=== PATIENT | male | born 1955 | race African-American/Black ===

== ENCOUNTER 2018-06-15 17:28 | Inpatient (IN) | payer BC, MEDICAID ==
--- OUTSIDE RECORDS SUMMARY | 2018-06-15 17:30 | XMS REPORT | Clinical Summary ---
:1955 Author Organization [facility] Address [address] [place] [address] Care Team Providers Name Role Phone Sharpan Primary Care Provider Unavailable Allergies No Known Allergies Medications Medication Sig Dispensed Refills Start Date End Date Status insulin aspart Inject 0 Active (NOVOLOG) 100 subcutaneously 3 unit/mL InPn (three) times daily with meals. insulin detemir Inject 0 Active (LEVEMIR) 100 subcutaneously unit/mL injection nightly. atorvastatin Take 20 mg by mouth 0 Active (LIPITOR) 20 MG daily. tablet aspirin 325 MG Take 1 tablet (325 30 tablet 0 10/23/2014 Active tablet mg total) by mouth daily. hydrALAZINE Take 50 mg by mouth 0 Active (APRESOLINE) 50 MG 2 (two) times daily. tabletIndications: hypertension esomeprazole Take 40 mg by mouth 0 Active (NEXIUM) 40 MG daily. capsule losartan (COZAAR) Take 1 tablet (50 mg 30 tablet 1 05/28/2017 Active 50 MG tablet total) by mouth daily. carvedilol (COREG) Take 1 tablet (25 mg 60 tablet 1 05/28/2017 25 MG tablet total) by mouth 2 8 (two) times daily. furosemide (LASIX) Take 3 tablets (60 180 tablet 1 05/28/2017 20 MG tablet mg total) by mouth 2 8 (two) times daily. Active Problems Problem Noted Date SOB (shortness of breath) 05/21/2017 CAD (coronary artery disease) 10/23/2014 Social History Tobacco Use Types Packs/Day Years Used Date Never Smoker Alcohol Use Drinks/Week oz/Week Comments No Sex Assigned at Date Recorded Not on file Job Start Date Occupation Industry Not on file Not on file Not on file Travel History Travel Start Travel End No recent travel history available. Last Filed Vital Signs Not on file Plan of Treatment Not on file Results Not on fileafter 06/14/2017 Insurance Payer Benefit Plan / Subscriber ID Type Phone Address Group MEDICAID - MEDICAID STOREY xxxxxxxxx Medicaid MEDICAID [place] NONCONTRACTED Non-Contracted CARE BLUE BCBS ADV HMO xxxxxxxxxxxx [phone] [address] CROSS/BLUE EXCHANGE [address] [facility] [id number] Advance Directives For more information, please contact:[address] [phone] Code Status Date Activated Date Inactivated Comments Full Code 05/21/2017 12:54 PM 05/28/2017 9:34 PM This code status was determined by: Patient Full Code 10/23/2014 12:12 PM 10/23/2014 7:58 PM This code status was determined by: Patient
--- OUTSIDE RECORDS SUMMARY | 2018-06-15 17:32 | XMS REPORT ---
:1955 Author Organization [facility] Address [facility] [address] [place] [address] Care Team Providers Name Role Phone UNKNOWN, REFFERING Primary Care Provider Unavailable JULIO CÉSAR LATHAM Unavailable Unavailable SUSIE RODRIGUEZ M.D. Unavailable Unavailable Problems This patient has no known problems. Allergies, Adverse Reactions, Alerts This patient has no known allergies or adverse reactions. Medications This patient has no known medications. Results Test Description Test Time Test Comments Text Results Atomic Results Result Comments POCT-GLUCOSE METER 2017-05-28 16:22:00 Test Item Value Reference Range Comments POC-GLUCOSE METER (BEAKER) (test 164 mg/dL 70-110 TESTED AT [address] vrbw=2512) [facility] [address] POCT-GLUCOSE [id number] 12:55:00 Test Item Value Reference Range Comments POC-GLUCOSE METER (BEAKER) 158 mg/dL 70-110 TESTED AT [address] (test gdlo=3173) [place] [id number] POCT-GLUCOSE [id number] 07:13:00 Test Item Value Reference Range Comments POC-GLUCOSE METER (BEAKER) 115 mg/dL 70-110 TESTED AT [address] (test ukmv=9519) [facility] [address] CALCIUM, [id number] 06:56:00 Test Item Value Reference Range Comments CALCIUM IONIZED (BEAKER) (test ljjj=677) 1.10 mmol/L 1.12-1.27 PH, BLOOD (BEAKER) (test dfpb=2460) 7.33 [id number] 06:37:00 Test Item Value Reference Range Comments PHOSPHORUS (BEAKER) (test rxpy=696) 2.9 mg/dL 2.3-4.7 [id number] 06:37:00 Test Item Value Reference Range Comments MAGNESIUM (BEAKER) (test bzht=292) 2.0 mg/dL 1.6-2.6 BASIC METABOLIC [id number] 06:37:00 Test Item Value Reference Range Comments SODIUM (BEAKER) (test 139 meq/L 136-145 ffsg=336) POTASSIUM (BEAKER) (test 3.7 meq/L 3.5-5.1 hwmi=210) CHLORIDE (BEAKER) (test 105 meq/L 98-107 ewbg=591) CO2 (BEAKER) (test 26 meq/L 22-29 zczg=174) BLOOD UREA NITROGEN 42 mg/dL 7-21 (BEAKER) (test thrl=832) CREATININE (BEAKER) (test 2.38 mg/dL 0.57-1.25 becx=187) GLUCOSE RANDOM (BEAKER) 112 mg/dL 70-105 (test rqso=231) CALCIUM (BEAKER) (test 8.1 mg/dL 8.4-10.2 rscr=234) EGFR (BEAKER) (test 34 mL/min/1.73 sq m ESTIMATED GFR IS NOT qrjw=7845) ACCURATE CREATININE CLEARANCE IN PREDICTING GLOMERULAR FILTRATION RATE. ESTIMATED GFR IS NOT APPLICABLE FOR DIALYSIS PATIENTS. BLOOD GAS, [id number] 06:09:00 Test Item Value Reference Range Comments PH VENOUS (BEAKER) (test tkys=186) 7.36 7.32-7.42 PCO2 VENOUS (BEAKER) (test nxxz=242) 52 mmHg 41-51 PO2 VENOUS (BEAKER) (test bqan=031) 161 mmHg 25-40 O2 SATURATION VENOUS (BEAKER) (test upki=186) 99.0 % 40.0-70.0 HCO3 VENOUS (BEAKER) (test iqdp=092) 29 mmol/L 21-29 BASE EXCESS VENOUS (BEAKER) (test inxi=202) 2.4 mmol/L -2.0-3.0 PATIENT TEMPERATURE (BEAKER) (test rcef=1198) 37.0 C CBC W/PLT COUNT & AUTO [id number] 05:51:00 Test Item Value Reference Range Comments WHITE BLOOD CELL COUNT (BEAKER) (test bhti=890) 7.0 K/ L 3.5-10.5 RED BLOOD CELL COUNT (BEAKER) (test xoup=901) 4.33 M/ L 4.63-6.08 HEMOGLOBIN (BEAKER) (test whdy=485) 12.5 GM/DL 13.7-17.5 HEMATOCRIT (BEAKER) (test zlko=352) 40.5 % 40.1-51.0 MEAN CORPUSCULAR VOLUME (BEAKER) (test smsa=185) 93.5 fL 79.0-92.2 MEAN CORPUSCULAR HEMOGLOBIN (BEAKER) (test 28.9 pg 25.7-32.2 oxhs=702) MEAN CORPUSCULAR HEMOGLOBIN CONC (BEAKER) (test 30.9 GM/DL 32.3-36.5 zsea=317) RED CELL DISTRIBUTION WIDTH (BEAKER) (test 12.4 % 11.6-14.4 esap=746) PLATELET COUNT (BEAKER) (test zvva=997) 202 K/CU MM 150-450 MEAN PLATELET VOLUME (BEAKER) (test wwen=255) 11.6 fL 9.4-12.4 NUCLEATED RED BLOOD CELLS (BEAKER) (test 0 /100 WBC 0-0 ersi=091) NEUTROPHILS RELATIVE PERCENT (BEAKER) (test 55 % gjvz=173) LYMPHOCYTES RELATIVE PERCENT (BEAKER) (test 35 % ookj=217) MONOCYTES RELATIVE PERCENT (BEAKER) (test 6 % gzqa=951) EOSINOPHILS RELATIVE PERCENT (BEAKER) (test 2 % xpoj=982) BASOPHILS RELATIVE PERCENT (BEAKER) (test 1 % dujg=151) NEUTROPHILS ABSOLUTE COUNT (BEAKER) (test 3.90 K/ L 1.78-5.38 adcn=146) LYMPHOCYTES ABSOLUTE COUNT (BEAKER) (test 2.47 K/ L 1.32-3.57 qzap=070) MONOCYTES ABSOLUTE COUNT (BEAKER) (test 0.44 K/ L 0.30-0.82 elfv=294) EOSINOPHILS ABSOLUTE COUNT (BEAKER) (test 0.16 K/ L 0.04-0.54 gvkl=701) BASOPHILS ABSOLUTE COUNT (BEAKER) (test 0.06 K/ L 0.01-0.08 hrvg=481) IMMATURE GRANULOCYTES-RELATIVE PERCENT (BEAKER) 0 % 0-1 (test essi=9710) POCT-GLUCOSE [id number] 20:52:00 Test Item Value Reference Range Comments POC-GLUCOSE METER (BEAKER) 184 mg/dL 70-110 TESTED AT [address] (test hzlf=7549) [facility] [address] POCT-GLUCOSE [id number] 17:12:00 Test Item Value Reference Range Comments POC-GLUCOSE METER (BEAKER) 143 mg/dL 70-110 TESTED AT [address] (test rwqu=7120) [facility] [address] POCT-GLUCOSE [id number] 11:42:00 Test Item Value Reference Range Comments POC-GLUCOSE METER (BEAKER) 210 mg/dL 70-110 TESTED AT [address] (test pmwu=5231) [facility] [address] POCT-GLUCOSE [id number] 08:02:00 Test Item Value Reference Range Comments POC-GLUCOSE METER (BEAKER) 135 mg/dL 70-110 TESTED AT [address] (test nwrk=0423) [facility] [address] BASIC METABOLIC [id number] 07:16:00 Test Item Value Reference Range Comments SODIUM (BEAKER) (test 138 meq/L 136-145 xlls=110) POTASSIUM (BEAKER) (test 4.0 meq/L 3.5-5.1 alip=300) CHLORIDE (BEAKER) (test 105 meq/L 98-107 gpac=518) CO2 (BEAKER) (test 26 meq/L 22-29 dlio=526) BLOOD UREA NITROGEN 39 mg/dL 7-21 (BEAKER) (test mnvf=204) CREATININE (BEAKER) (test 2.27 mg/dL 0.57-1.25 suuz=951) GLUCOSE RANDOM (BEAKER) 128 mg/dL 70-105 (test yhyr=749) CALCIUM (BEAKER) (test 7.9 mg/dL 8.4-10.2 kiwk=983) EGFR (BEAKER) (test 36 mL/min/1.73 sq m ESTIMATED GFR IS NOT wgec=2997) ACCURATE CREATININE CLEARANCE IN PREDICTING GLOMERULAR FILTRATION RATE. ESTIMATED GFR IS NOT APPLICABLE FOR DIALYSIS PATIENTS. [id number] 07:09:00 Test Item Value Reference Range Comments MAGNESIUM (BEAKER) (test kqpd=418) 2.3 mg/dL 1.6-2.6 CBC W/PLT COUNT & AUTO [id number] 06:34:00 Test Item Value Reference Range Comments WHITE BLOOD CELL COUNT (BEAKER) (test zmgs=053) 7.1 K/ L 3.5-10.5 RED BLOOD CELL COUNT (BEAKER) (test mamm=221) 4.29 M/ L 4.63-6.08 HEMOGLOBIN (BEAKER) (test xxox=264) 12.4 GM/DL 13.7-17.5 HEMATOCRIT (BEAKER) (test vzls=379) 40.1 % 40.1-51.0 MEAN CORPUSCULAR VOLUME (BEAKER) (test onat=114) 93.5 fL 79.0-92.2 MEAN CORPUSCULAR HEMOGLOBIN (BEAKER) (test 28.9 pg 25.7-32.2 vijv=983) MEAN CORPUSCULAR HEMOGLOBIN CONC (BEAKER) (test 30.9 GM/DL 32.3-36.5 gqrz=673) RED CELL DISTRIBUTION WIDTH (BEAKER) (test 12.6 % 11.6-14.4 iune=445) PLATELET COUNT (BEAKER) (test oxrw=077) 209 K/CU MM 150-450 MEAN PLATELET VOLUME (BEAKER) (test jgcy=928) 11.8 fL 9.4-12.4 NUCLEATED RED BLOOD CELLS (BEAKER) (test 0 /100 WBC 0-0 wuhq=585) NEUTROPHILS RELATIVE PERCENT (BEAKER) (test 64 % vhyu=142) LYMPHOCYTES RELATIVE PERCENT (BEAKER) (test 26 % nkit=813) MONOCYTES RELATIVE PERCENT (BEAKER) (test 7 % mapm=720) EOSINOPHILS RELATIVE PERCENT (BEAKER) (test 2 % bzom=839) BASOPHILS RELATIVE PERCENT (BEAKER) (test 1 % yyrq=374) NEUTROPHILS ABSOLUTE COUNT (BEAKER) (test 4.56 K/ L 1.78-5.38 ovnm=228) LYMPHOCYTES ABSOLUTE COUNT (BEAKER) (test 1.88 K/ L 1.32-3.57 ygts=070) MONOCYTES ABSOLUTE COUNT (BEAKER) (test 0.47 K/ L 0.30-0.82 jxjn=159) EOSINOPHILS ABSOLUTE COUNT (BEAKER) (test 0.12 K/ L 0.04-0.54 rosf=248) BASOPHILS ABSOLUTE COUNT (BEAKER) (test 0.06 K/ L 0.01-0.08 lpdn=619) IMMATURE GRANULOCYTES-RELATIVE PERCENT (BEAKER) 0 % 0-1 (test toda=3992) POCT-GLUCOSE [id number] 22:32:00 Test Item Value Reference Range Comments POC-GLUCOSE METER (BEAKER) 215 mg/dL 70-110 TESTED AT [address] (test oodv=7446) [facility] [address] POCT-GLUCOSE [id number] 17:17:00 Test Item Value Reference Range Comments POC-GLUCOSE METER (BEAKER) 219 mg/dL 70-110 TESTED AT [address] (test gccr=6327) [facility] [address] POCT-GLUCOSE [id number] 12:49:00 Test Item Value Reference Range Comments POC-GLUCOSE METER (BEAKER) 159 mg/dL 70-110 TESTED AT [address] (test urkz=7812) [facility] [address] POCT-GLUCOSE [id number] 11:26:00 Test Item Value Reference Range Comments POC-GLUCOSE METER (BEAKER) 181 mg/dL 70-110 TESTED AT [address] (test lnlc=4917) [facility] [address] POCT-GLUCOSE [id number] 09:18:00 Test Item Value Reference Range Comments POC-GLUCOSE METER (BEAKER) 150 mg/dL 70-110 TESTED AT [address] (test ipih=6165) [facility] [address] [id number] 08:08:00 Test Item Value Reference Range Comments PHOSPHORUS (BEAKER) (test dxox=017) 3.0 mg/dL 2.3-4.7 [id number] 08:08:00 Test Item Value Reference Range Comments MAGNESIUM (BEAKER) (test nahm=092) 1.7 mg/dL 1.6-2.6 BASIC METABOLIC [id number] 08:08:00 Test Item Value Reference Range Comments SODIUM (BEAKER) (test 139 meq/L 136-145 kjsw=378) POTASSIUM (BEAKER) (test 3.4 meq/L 3.5-5.1 erva=121) CHLORIDE (BEAKER) (test 106 meq/L 98-107 ybad=161) CO2 (BEAKER) (test 26 meq/L 22-29 rmfl=991) BLOOD UREA NITROGEN 38 mg/dL 7-21 (BEAKER) (test pjjt=190) CREATININE (BEAKER) (test 2.16 mg/dL 0.57-1.25 cpsh=852) GLUCOSE RANDOM (BEAKER) 102 mg/dL 70-105 (test yjyu=882) CALCIUM (BEAKER) (test 8.0 mg/dL 8.4-10.2 qewi=930) EGFR (BEAKER) (test 38 mL/min/1.73 sq m ESTIMATED GFR IS NOT dpei=9957) ACCURATE CREATININE CLEARANCE IN PREDICTING GLOMERULAR FILTRATION RATE. ESTIMATED GFR IS NOT APPLICABLE FOR DIALYSIS PATIENTS. B-TYPE NATRIURETIC FACTOR (BNP)2017-05-26 07:56:00 Test Item Value Reference Range Comments B-TYPE NATRIURETIC PEPTIDE (BEAKER) (test 2117 pg/mL 0-100 uixn=882) CBC W/PLT COUNT & AUTO [id number] 07:24:00 Test Item Value Reference Range Comments WHITE BLOOD CELL COUNT (BEAKER) (test bzmu=048) 6.8 K/ L 3.5-10.5 RED BLOOD CELL COUNT (BEAKER) (test rjin=002) 4.40 M/ L 4.63-6.08 HEMOGLOBIN (BEAKER) (test gvjd=751) 12.7 GM/DL 13.7-17.5 HEMATOCRIT (BEAKER) (test umqt=372) 41.5 % 40.1-51.0 MEAN CORPUSCULAR VOLUME (BEAKER) (test pvlh=136) 94.3 fL 79.0-92.2 MEAN CORPUSCULAR HEMOGLOBIN (BEAKER) (test 28.9 pg 25.7-32.2 ynqf=696) MEAN CORPUSCULAR HEMOGLOBIN CONC (BEAKER) (test 30.6 GM/DL 32.3-36.5 rnqz=824) RED CELL DISTRIBUTION WIDTH (BEAKER) (test 12.6 % 11.6-14.4 lbwr=783) PLATELET COUNT (BEAKER) (test jowa=081) 215 K/CU MM 150-450 MEAN PLATELET VOLUME (BEAKER) (test bxiq=350) 11.6 fL 9.4-12.4 NUCLEATED RED BLOOD CELLS (BEAKER) (test 0 /100 WBC 0-0 mhgd=854) NEUTROPHILS RELATIVE PERCENT (BEAKER) (test 62 % huwk=013) LYMPHOCYTES RELATIVE PERCENT (BEAKER) (test 29 % soul=576) MONOCYTES RELATIVE PERCENT (BEAKER) (test 7 % syyt=252) EOSINOPHILS RELATIVE PERCENT (BEAKER) (test 1 % jupi=469) BASOPHILS RELATIVE PERCENT (BEAKER) (test 1 % hftl=369) NEUTROPHILS ABSOLUTE COUNT (BEAKER) (test 4.22 K/ L 1.78-5.38 nchc=265) LYMPHOCYTES ABSOLUTE COUNT (BEAKER) (test 1.98 K/ L 1.32-3.57 hcam=690) MONOCYTES ABSOLUTE COUNT (BEAKER) (test 0.44 K/ L 0.30-0.82 ipbn=753) EOSINOPHILS ABSOLUTE COUNT (BEAKER) (test 0.09 K/ L 0.04-0.54 rajc=206) BASOPHILS ABSOLUTE COUNT (BEAKER) (test 0.06 K/ L 0.01-0.08 kahc=079) IMMATURE GRANULOCYTES-RELATIVE PERCENT (BEAKER) 0 % 0-1 (test adff=7658) BLOOD GAS, [id number] 07:20:00 Test Item Value Reference Range Comments PH VENOUS (BEAKER) (test cpbd=376) 7.42 7.32-7.42 PCO2 VENOUS (BEAKER) (test xsaa=283) 48 mmHg 41-51 PO2 VENOUS (BEAKER) (test vsnn=623) 46 mmHg 25-40 O2 SATURATION VENOUS (BEAKER) (test bhdp=483) 82.2 % 40.0-70.0 HCO3 VENOUS (BEAKER) (test cgnv=392) 30 mmol/L 21-29 BASE EXCESS VENOUS (BEAKER) (test vllh=546) 4.5 mmol/L -2.0-3.0 PATIENT TEMPERATURE (BEAKER) (test hjrw=8040) 37.0 C FIO2 (BEAKER) (test fwfr=8695) 100.0 % POCT-GLUCOSE [id number] 22:01:00 Test Item Value Reference Range Comments POC-GLUCOSE METER (BEAKER) 152 mg/dL 70-110 TESTED AT [address] (test njur=2159) [facility] [address] POCT-GLUCOSE [id number] 18:37:00 Test Item Value Reference Range Comments POC-GLUCOSE METER (BEAKER) 180 mg/dL 70-110 TESTED AT [address] (test eiaz=1384) [facility] [address] RAD, CHEST, 1 VIEW, NON [id number] 16:56:00Reason for exam:->pleural effusionsShould this be performed at the bedside?->YesFINAL REPORT Chest one view. Clinical history: pleural effusions Comparison: May 21, 2017 Discussion: A frontal chest is provided. Cardiomediastinal contours are unchanged. Peripheral opacity in the left midlung has resolved. There are elefk-jq-yfeufzgk bilateral pleural effusions and bibasilar atelectasis or consolidation. No pneumothorax. Signed: Sugey Ojeda Verified Date/Time: 05/25/2017 16:56:00 Reading Location: [facility] [id number] Consult Reading Room CALCIUM, [id number] 16:49:00 Test Item Value Reference Range Comments CALCIUM IONIZED (BEAKER) (test gmaz=342) 1.09 mmol/L 1.12-1.27 PH, BLOOD (BEAKER) (test aurb=7874) 7.37 BLOOD GAS, [id number] 16:32:00 Test Item Value Reference Range Comments PH VENOUS (BEAKER) (test mvzj=155) 7.37 7.32-7.42 PCO2 VENOUS (BEAKER) (test wtdi=580) 55 mmHg 41-51 PO2 VENOUS (BEAKER) (test gykn=022) 30 mmHg 25-40 O2 SATURATION VENOUS (BEAKER) (test eqnw=374) 54.6 % 40.0-70.0 HCO3 VENOUS (BEAKER) (test wsnc=455) 31 mmol/L 21-29 BASE EXCESS VENOUS (BEAKER) (test lilc=581) 4.7 mmol/L -2.0-3.0 PATIENT TEMPERATURE (BEAKER) (test ehzy=1575) 37.0 C POCT-GLUCOSE [id number] 16:26:00 Test Item Value Reference Range Comments POC-GLUCOSE METER (BEAKER) 231 mg/dL 70-110 TESTED AT [facility] [address] [facility] (test kvaz=5788) [facility] [address] POCT-GLUCOSE [id number] 08:13:00 Test Item Value Reference Range Comments POC-GLUCOSE METER (BEAKER) 109 mg/dL 70-110 TESTED AT [address] (test jkvz=7425) [facility] [address] [id number] 06:22:00 Test Item Value Reference Range Comments MAGNESIUM (BEAKER) (test zjds=562) 1.7 mg/dL 1.6-2.6 BASIC METABOLIC [id number] 06:22:00 Test Item Value Reference Range Comments SODIUM (BEAKER) (test 141 meq/L 136-145 phqi=341) POTASSIUM (BEAKER) (test 3.4 meq/L 3.5-5.1 xlpu=913) CHLORIDE (BEAKER) (test 107 meq/L 98-107 jeux=643) CO2 (BEAKER) (test 27 meq/L 22-29 tiij=297) BLOOD UREA NITROGEN 38 mg/dL 7-21 (BEAKER) (test irri=045) CREATININE (BEAKER) (test 2.14 mg/dL 0.57-1.25 zzud=137) GLUCOSE RANDOM (BEAKER) 111 mg/dL 70-105 (test llcl=942) CALCIUM (BEAKER) (test 8.0 mg/dL 8.4-10.2 mmiw=693) EGFR (BEAKER) (test 38 mL/min/1.73 sq m ESTIMATED GFR IS NOT tpsm=2374) ACCURATE CREATININE CLEARANCE IN PREDICTING GLOMERULAR FILTRATION RATE. ESTIMATED GFR IS NOT APPLICABLE FOR DIALYSIS PATIENTS. BLOOD GAS, [id number] 05:50:00 Test Item Value Reference Range Comments PH VENOUS (BEAKER) (test ekjj=059) 7.42 7.32-7.42 PCO2 VENOUS (BEAKER) (test vyqr=194) 49 mmHg 41-51 PO2 VENOUS (BEAKER) (test trgi=671) 69 mmHg 25-40 O2 SATURATION VENOUS (BEAKER) (test ihhy=397) 93.9 % 40.0-70.0 HCO3 VENOUS (BEAKER) (test czhd=103) 31 mmol/L 21-29 BASE EXCESS VENOUS (BEAKER) (test fvqy=502) 5.3 mmol/L -2.0-3.0 PATIENT TEMPERATURE (BEAKER) (test sxji=9560) 37.0 C FIO2 (BEAKER) (test kwhw=1057) 100.0 % CBC W/PLT COUNT & AUTO [id number] 05:39:00 Test Item Value Reference Range Comments WHITE BLOOD CELL COUNT (BEAKER) (test dcae=345) 7.0 K/ L 3.5-10.5 RED BLOOD CELL COUNT (BEAKER) (test gygw=073) 4.19 M/ L 4.63-6.08 HEMOGLOBIN (BEAKER) (test kmgt=150) 12.1 GM/DL 13.7-17.5 HEMATOCRIT (BEAKER) (test dpum=716) 40.2 % 40.1-51.0 MEAN CORPUSCULAR VOLUME (BEAKER) (test tyhv=813) 95.9 fL 79.0-92.2 MEAN CORPUSCULAR HEMOGLOBIN (BEAKER) (test 28.9 pg 25.7-32.2 uptz=249) MEAN CORPUSCULAR HEMOGLOBIN CONC (BEAKER) (test 30.1 GM/DL 32.3-36.5 mitl=298) RED CELL DISTRIBUTION WIDTH (BEAKER) (test 12.6 % 11.6-14.4 szuw=851) PLATELET COUNT (BEAKER) (test fjmv=858) 206 K/CU MM 150-450 MEAN PLATELET VOLUME (BEAKER) (test banz=357) 11.1 fL 9.4-12.4 NUCLEATED RED BLOOD CELLS (BEAKER) (test 0 /100 WBC 0-0 hozs=702) NEUTROPHILS RELATIVE PERCENT (BEAKER) (test 65 % srol=650) LYMPHOCYTES RELATIVE PERCENT (BEAKER) (test 26 % abuo=798) MONOCYTES RELATIVE PERCENT (BEAKER) (test 6 % sdwj=026) EOSINOPHILS RELATIVE PERCENT (BEAKER) (test 2 % dbkw=451) BASOPHILS RELATIVE PERCENT (BEAKER) (test 1 % zgoi=160) NEUTROPHILS ABSOLUTE COUNT (BEAKER) (test 4.59 K/ L 1.78-5.38 pczq=666) LYMPHOCYTES ABSOLUTE COUNT (BEAKER) (test 1.79 K/ L 1.32-3.57 losc=474) MONOCYTES ABSOLUTE COUNT (BEAKER) (test 0.45 K/ L 0.30-0.82 zspm=806) EOSINOPHILS ABSOLUTE COUNT (BEAKER) (test 0.12 K/ L 0.04-0.54 kkbh=679) BASOPHILS ABSOLUTE COUNT (BEAKER) (test 0.07 K/ L 0.01-0.08 gxcc=564) IMMATURE GRANULOCYTES-RELATIVE PERCENT (BEAKER) 0 % 0-1 (test msgy=0707) POCT-GLUCOSE [id number] 21:37:00 Test Item Value Reference Range Comments POC-GLUCOSE METER (BEAKER) 220 mg/dL 70-110 TESTED AT [address] (test ufmt=0641) [place] [address] POCT-GLUCOSE [id number] 18:38:00 Test Item Value Reference Range Comments POC-GLUCOSE METER (BEAKER) 191 mg/dL 70-110 TESTED AT [address] (test zrpp=9955) [place] [address] BLOOD GAS, [id number] 13:49:00 Test Item Value Reference Range Comments PH VENOUS (BEAKER) (test njqm=754) 7.41 7.32-7.42 PCO2 VENOUS (BEAKER) (test caqs=898) 46 mmHg 41-51 PO2 VENOUS (BEAKER) (test uwnz=599) 207 mmHg 25-40 O2 SATURATION VENOUS (BEAKER) (test ktac=237) 99.4 % 40.0-70.0 HCO3 VENOUS (BEAKER) (test cixk=559) 29 mmol/L 21-29 BASE EXCESS VENOUS (BEAKER) (test pcyc=748) 3.4 mmol/L -2.0-3.0 PATIENT TEMPERATURE (BEAKER) (test ppdh=7223) 37.0 C FIO2 (BEAKER) (test nqqd=7258) 100.0 % POCT-GLUCOSE [id number] 13:19:00 Test Item Value Reference Range Comments POC-GLUCOSE METER (BEAKER) 208 mg/dL 70-110 TESTED AT [address] (test eyun=0525) [place] [address] POCT-GLUCOSE [id number] 10:17:00 Test Item Value Reference Range Comments POC-GLUCOSE METER (BEAKER) 177 mg/dL 70-110 TESTED AT [address] (test oncd=6066) [place] [address] [id number] 04:54:00 Test Item Value Reference Range Comments MAGNESIUM (BEAKER) (test ajtg=937) 2.0 mg/dL 1.6-2.6 BASIC METABOLIC [id number] 04:54:00 Test Item Value Reference Range Comments SODIUM (BEAKER) (test 141 meq/L 136-145 tzoq=250) POTASSIUM (BEAKER) (test 3.7 meq/L 3.5-5.1 yjds=444) CHLORIDE (BEAKER) (test 105 meq/L 98-107 ywcv=340) CO2 (BEAKER) (test 29 meq/L 22-29 epbq=195) BLOOD UREA NITROGEN 37 mg/dL 7-21 (BEAKER) (test gifc=728) CREATININE (BEAKER) (test 2.33 mg/dL 0.57-1.25 ukyl=663) GLUCOSE RANDOM (BEAKER) 157 mg/dL 70-105 (test wxng=403) CALCIUM (BEAKER) (test 8.3 mg/dL 8.4-10.2 jcik=441) EGFR (BEAKER) (test 34 mL/min/1.73 sq m ESTIMATED GFR IS NOT efyn=5894) ACCURATE CREATININE CLEARANCE IN PREDICTING GLOMERULAR FILTRATION RATE. ESTIMATED GFR IS NOT APPLICABLE FOR DIALYSIS PATIENTS. [id number] 04:54:00 Test Item Value Reference Range Comments ALBUMIN (BEAKER) (test mfkm=0731) 2.2 g/dL 3.5-5.0 CBC W/PLT COUNT & AUTO [id number] 04:01:00 Test Item Value Reference Range Comments WHITE BLOOD CELL COUNT (BEAKER) (test zxah=865) 7.5 K/ L 3.5-10.5 RED BLOOD CELL COUNT (BEAKER) (test hcvg=477) 4.38 M/ L 4.63-6.08 HEMOGLOBIN (BEAKER) (test soiz=092) 12.8 GM/DL 13.7-17.5 HEMATOCRIT (BEAKER) (test bqxd=102) 41.1 % 40.1-51.0 MEAN CORPUSCULAR VOLUME (BEAKER) (test urxl=613) 93.8 fL 79.0-92.2 MEAN CORPUSCULAR HEMOGLOBIN (BEAKER) (test 29.2 pg 25.7-32.2 ulcl=941) MEAN CORPUSCULAR HEMOGLOBIN CONC (BEAKER) (test 31.1 GM/DL 32.3-36.5 bwjn=910) RED CELL DISTRIBUTION WIDTH (BEAKER) (test 12.5 % 11.6-14.4 sovx=662) PLATELET COUNT (BEAKER) (test oxkx=415) 225 K/CU MM 150-450 MEAN PLATELET VOLUME (BEAKER) (test bmdt=325) 11.1 fL 9.4-12.4 NUCLEATED RED BLOOD CELLS (BEAKER) (test 0 /100 WBC 0-0 ujah=241) NEUTROPHILS RELATIVE PERCENT (BEAKER) (test 64 % azlp=019) LYMPHOCYTES RELATIVE PERCENT (BEAKER) (test 29 % bbmm=442) MONOCYTES RELATIVE PERCENT (BEAKER) (test 5 % wjzb=042) EOSINOPHILS RELATIVE PERCENT (BEAKER) (test 2 % ztgc=097) BASOPHILS RELATIVE PERCENT (BEAKER) (test 1 % ardj=704) NEUTROPHILS ABSOLUTE COUNT (BEAKER) (test 4.74 K/ L 1.78-5.38 azwp=191) LYMPHOCYTES ABSOLUTE COUNT (BEAKER) (test 2.12 K/ L 1.32-3.57 xcvs=376) MONOCYTES ABSOLUTE COUNT (BEAKER) (test 0.38 K/ L 0.30-0.82 fqch=959) EOSINOPHILS ABSOLUTE COUNT (BEAKER) (test 0.14 K/ L 0.04-0.54 zzcz=549) BASOPHILS ABSOLUTE COUNT (BEAKER) (test 0.06 K/ L 0.01-0.08 qixy=070) IMMATURE GRANULOCYTES-RELATIVE PERCENT (BEAKER) 0 % 0-1 (test lkxk=4383) POCT-GLUCOSE [id number] 21:29:00 Test Item Value Reference Range Comments POC-GLUCOSE METER (BEAKER) 207 mg/dL 70-110 TESTED AT [facility] [address] [facility] (test pqze=8565) [facility] [address] POCT-GLUCOSE [id number] 18:12:00 Test Item Value Reference Range Comments POC-GLUCOSE METER (BEAKER) 203 mg/dL 70-110 TESTED AT [place] [id number] [facility] (test tckw=9671) [facility] [address] U/S, RENAL, [id number] 16:07:00Reason for exam:->to look for CKD, renal echogenecityFINAL REPORT Comparison: None Discussion: Sonographic evaluation of the kidneys is performed. The right kidney measures 9.3 cm in length, with cortical thickness of 1.0 cm. The left kidney measures 10.47 m in length, with cortical thickness of 1.0 cm. There is no focal renal mass, hydronephrosis, or shadowing renal calculus. Both kidneys demonstrate slightly increased corticalechogenicity. Survey images of the bladder demonstrate no abnormality. IMPRESSION: Mildly increased renal cortical echogenicity may be due to underlying medical renal disease. Otherwise unremarkable renal ultrasound. Signed: Smiley Mckeon MDReport Verified Date/Time: 05/23/2017 16:07:16 Reading Location: [address] Ultrasound Reading Room POCT- GLUCOSE [id number] 14:23:00 Test Item Value Reference Range Comments POC-GLUCOSE METER (BEAKER) 187 mg/dL 70-110 TESTED AT [address] (test jwyp=6247) [facility] [address] PROTEIN, RANDOM [id number] 08:16:00 Test Item Value Reference Range Comments PROTEIN, URINE (BEAKER) (test gefh=7616) 906 mg/dL 0-14 POCT-GLUCOSE [id number] 07:49:00 Test Item Value Reference Range Comments POC-GLUCOSE METER (BEAKER) 176 mg/dL 70-110 TESTED AT [address] (test xjgw=9736) [facility] [address] CALCIUM, [id number] 07:14:00 Test Item Value Reference Range Comments CALCIUM IONIZED (BEAKER) (test gztq=451) 1.04 mmol/L 1.12-1.27 PH, BLOOD (BEAKER) (test irxe=2821) 7.33 [id number] 07:04:00 Test Item Value Reference Range Comments PHOSPHORUS (BEAKER) (test krmv=006) 2.8 mg/dL 2.3-4.7 [id number] 07:04:00 Test Item Value Reference Range Comments MAGNESIUM (BEAKER) (test qaxg=518) 2.0 mg/dL 1.6-2.6 BASIC METABOLIC [id number] 07:04:00 Test Item Value Reference Range Comments SODIUM (BEAKER) (test 141 meq/L 136-145 kkot=169) POTASSIUM (BEAKER) (test 3.6 meq/L 3.5-5.1 aalg=279) CHLORIDE (BEAKER) (test 105 meq/L 98-107 dyix=633) CO2 (BEAKER) (test 28 meq/L 22-29 rxgb=584) BLOOD UREA NITROGEN 35 mg/dL 7-21 (BEAKER) (test faoy=425) CREATININE (BEAKER) (test 2.38 mg/dL 0.57-1.25 tiwa=907) GLUCOSE RANDOM (BEAKER) 159 mg/dL 70-105 (test fspo=788) CALCIUM (BEAKER) (test 8.3 mg/dL 8.4-10.2 ssvl=242) EGFR (BEAKER) (test 34 mL/min/1.73 sq m ESTIMATED GFR IS NOT trwq=0785) ACCURATE CREATININE CLEARANCE IN PREDICTING GLOMERULAR FILTRATION RATE. ESTIMATED GFR IS NOT APPLICABLE FOR DIALYSIS PATIENTS. BLOOD GAS, [id number] 06:58:00 Test Item Value Reference Range Comments PH VENOUS (BEAKER) (test tels=632) 7.40 7.32-7.42 PCO2 VENOUS (BEAKER) (test mmry=819) 48 mmHg 41-51 PO2 VENOUS (BEAKER) (test obga=359) 39 mmHg 25-40 O2 SATURATION VENOUS (BEAKER) (test bkxh=747) 73.5 % 40.0-70.0 HCO3 VENOUS (BEAKER) (test mhry=501) 30 mmol/L 21-29 BASE EXCESS VENOUS (BEAKER) (test ocno=187) 3.8 mmol/L -2.0-3.0 PATIENT TEMPERATURE (BEAKER) (test sgtz=4956) 37.0 C FIO2 (BEAKER) (test wcwx=2236) 100.0 % CBC W/PLT COUNT & AUTO [id number] 06:49:00 Test Item Value Reference Range Comments WHITE BLOOD CELL COUNT (BEAKER) (test mank=367) 8.4 K/ L 3.5-10.5 RED BLOOD CELL COUNT (BEAKER) (test agsf=572) 4.63 M/ L 4.63-6.08 HEMOGLOBIN (BEAKER) (test mpjh=271) 13.4 GM/DL 13.7-17.5 HEMATOCRIT (BEAKER) (test tzkr=459) 43.8 % 40.1-51.0 MEAN CORPUSCULAR VOLUME (BEAKER) (test lxdt=564) 94.6 fL 79.0-92.2 MEAN CORPUSCULAR HEMOGLOBIN (BEAKER) (test 28.9 pg 25.7-32.2 niuo=674) MEAN CORPUSCULAR HEMOGLOBIN CONC (BEAKER) (test 30.6 GM/DL 32.3-36.5 tldv=724) RED CELL DISTRIBUTION WIDTH (BEAKER) (test 12.8 % 11.6-14.4 oclk=684) PLATELET COUNT (BEAKER) (test xlrn=163) 285 K/CU MM 150-450 MEAN PLATELET VOLUME (BEAKER) (test mauk=125) 11.2 fL 9.4-12.4 NUCLEATED RED BLOOD CELLS (BEAKER) (test 0 /100 WBC 0-0 eqei=061) NEUTROPHILS RELATIVE PERCENT (BEAKER) (test 65 % maxl=435) LYMPHOCYTES RELATIVE PERCENT (BEAKER) (test 27 % pzfs=991) MONOCYTES RELATIVE PERCENT (BEAKER) (test 6 % xyzq=087) EOSINOPHILS RELATIVE PERCENT (BEAKER) (test 1 % azxp=648) BASOPHILS RELATIVE PERCENT (BEAKER) (test 1 % jcpc=511) NEUTROPHILS ABSOLUTE COUNT (BEAKER) (test 5.44 K/ L 1.78-5.38 qrpb=746) LYMPHOCYTES ABSOLUTE COUNT (BEAKER) (test 2.23 K/ L 1.32-3.57 flsk=182) MONOCYTES ABSOLUTE COUNT (BEAKER) (test 0.49 K/ L 0.30-0.82 qfeg=378) EOSINOPHILS ABSOLUTE COUNT (BEAKER) (test 0.12 K/ L 0.04-0.54 kgcz=199) BASOPHILS ABSOLUTE COUNT (BEAKER) (test 0.08 K/ L 0.01-0.08 dxee=409) IMMATURE GRANULOCYTES-RELATIVE PERCENT (BEAKER) 0 % 0-1 (test bekx=7132) URINALYSIS W/ [id number] 06:47:00 Test Item Value Reference Range Comments COLOR (BEAKER) (test iwgz=478) Yellow CLARITY (BEAKER) (test vwsz=172) Clear SPECIFIC GRAVITY UA (BEAKER) (test iwuh=506) 1.015 1.001-1.035 PH UA (BEAKER) (test bmgy=400) 6.5 5.0-8.0 PROTEIN UA (BEAKER) (test oopy=496) >600 mg/dL Negative GLUCOSE UA (BEAKER) (test egch=540) 200 mg/dL Negative KETONES UA (BEAKER) (test jqni=439) Negative Negative BILIRUBIN UA (BEAKER) (test gttp=278) Negative Negative BLOOD UA (BEAKER) (test dljf=729) Small Negative NITRITE UA (BEAKER) (test ajrv=440) Negative Negative LEUKOCYTE ESTERASE UA (BEAKER) (test xvxn=079) Negative Negative UROBILINOGEN UA (BEAKER) (test hlex=100) 2.0 mg/dL 0.2-1.0 RBC UA (BEAKER) (test nfwc=575) 2 /HPF WBC UA (BEAKER) (test bxpm=203) 1 /HPF BACTERIA (BEAKER) (test ahdf=550) Rare MUCUS (BEAKER) (test fmmp=7546) Rare HYALINE CASTS (BEAKER) (test opsm=720) 6 /LPF SOURCE(BEAKER) (test oxqy=5385) Urine, Voided CREATININE, RANDOM [id number] 06:33:00 Test Item Value Reference Range Comments CREATININE URINE (BEAKER) (test epok=658) 115.6 mg/dL Reference Range: No NormalsPOCT-GLUCOSE [id number] 21:16:00 Test Item Value Reference Range Comments POC-GLUCOSE METER (BEAKER) 209 mg/dL 70-110 TESTED AT [address] (test myun=9557) [place] [address] HEMOGLOBIN [id number] 18:59:00 Test Item Value Reference Range Comments HEMOGLOBIN A1C (BEAKER) (test totv=406) 4.6 % 4.3-6.1 POCT-GLUCOSE [id number] 17:04:00 Test Item Value Reference Range Comments POC-GLUCOSE METER (BEAKER) 214 mg/dL 70-110 TESTED AT [address] (test cksr=8514) [place] [id number] POCT-GLUCOSE [id number] 12:38:00 Test Item Value Reference Range Comments POC-GLUCOSE METER (BEAKER) 205 mg/dL 70-110 TESTED AT [address] (test gejl=1891) [place] [address] POCT-GLUCOSE [id number] 09:06:00 Test Item Value Reference Range Comments POC-GLUCOSE METER (BEAKER) 163 mg/dL 70-110 TESTED AT [address] (test bixu=1649) [place] [id number] 06:57:00 Test Item Value Reference Range Comments MAGNESIUM (BEAKER) (test hmet=179) 1.6 mg/dL 1.6-2.6 BASIC METABOLIC [id number] 06:57:00 Test Item Value Reference Range Comments SODIUM (BEAKER) (test 140 meq/L 136-145 levq=104) POTASSIUM (BEAKER) (test 3.6 meq/L 3.5-5.1 uhoi=444) CHLORIDE (BEAKER) (test 106 meq/L 98-107 fpzh=725) CO2 (BEAKER) (test 26 meq/L 22-29 syzr=887) BLOOD UREA NITROGEN 31 mg/dL 7-21 (BEAKER) (test asda=257) CREATININE (BEAKER) (test 2.28 mg/dL 0.57-1.25 taed=882) GLUCOSE RANDOM (BEAKER) 128 mg/dL 70-105 (test zwli=796) CALCIUM (BEAKER) (test 8.0 mg/dL 8.4-10.2 czmy=877) EGFR (BEAKER) (test 35 mL/min/1.73 sq m ESTIMATED GFR IS NOT bqnl=4804) ACCURATE CREATININE CLEARANCE IN PREDICTING GLOMERULAR FILTRATION RATE. ESTIMATED GFR IS NOT APPLICABLE FOR DIALYSIS PATIENTS. CBC W/PLT COUNT & AUTO [id number] 06:40:00 Test Item Value Reference Range Comments WHITE BLOOD CELL COUNT (BEAKER) (test rinb=768) 7.6 K/ L 3.5-10.5 RED BLOOD CELL COUNT (BEAKER) (test cdmw=746) 4.26 M/ L 4.63-6.08 HEMOGLOBIN (BEAKER) (test izad=094) 12.2 GM/DL 13.7-17.5 HEMATOCRIT (BEAKER) (test xhaz=416) 40.2 % 40.1-51.0 MEAN CORPUSCULAR VOLUME (BEAKER) (test svmz=907) 94.4 fL 79.0-92.2 MEAN CORPUSCULAR HEMOGLOBIN (BEAKER) (test 28.6 pg 25.7-32.2 uxks=051) MEAN CORPUSCULAR HEMOGLOBIN CONC (BEAKER) (test 30.3 GM/DL 32.3-36.5 wzpu=712) RED CELL DISTRIBUTION WIDTH (BEAKER) (test 12.8 % 11.6-14.4 rrad=193) PLATELET COUNT (BEAKER) (test mcfh=098) 231 K/CU MM 150-450 MEAN PLATELET VOLUME (BEAKER) (test lcbx=021) 10.9 fL 9.4-12.4 NUCLEATED RED BLOOD CELLS (BEAKER) (test 0 /100 WBC 0-0 ywow=809) NEUTROPHILS RELATIVE PERCENT (BEAKER) (test 66 % tzlb=908) LYMPHOCYTES RELATIVE PERCENT (BEAKER) (test 26 % zhme=740) MONOCYTES RELATIVE PERCENT (BEAKER) (test 6 % dryv=708) EOSINOPHILS RELATIVE PERCENT (BEAKER) (test 2 % ijkw=142) BASOPHILS RELATIVE PERCENT (BEAKER) (test 1 % afup=113) NEUTROPHILS ABSOLUTE COUNT (BEAKER) (test 4.99 K/ L 1.78-5.38 pyqu=693) LYMPHOCYTES ABSOLUTE COUNT (BEAKER) (test 1.95 K/ L 1.32-3.57 kywf=562) MONOCYTES ABSOLUTE COUNT (BEAKER) (test 0.44 K/ L 0.30-0.82 wpvr=044) EOSINOPHILS ABSOLUTE COUNT (BEAKER) (test 0.12 K/ L 0.04-0.54 rpez=692) BASOPHILS ABSOLUTE COUNT (BEAKER) (test 0.07 K/ L 0.01-0.08 xsgy=876) IMMATURE GRANULOCYTES-RELATIVE PERCENT (BEAKER) 0 % 0-1 (test jald=0866) CREATINE KINASE (CK), TOTAL AND [id number] 02:58:00 Test Item Value Reference Range Comments CREATINE KINASE TOTAL (BEAKER) (test qrjg=664) 218 U/L 29-200 CREATINE KINASE-MB (BEAKER) (test xksu=786) 3.9 ng/mL 0.0-6.6 CREATINE KINASE-MB INDEX (BEAKER) (test krsq=261) 1.8 % CK-MB Reference Range:<6.7 Normal6.7-10.0 Borderline>10.0 AbnormalTROPONIN [id number] 02:58:00 Test Item Value Reference Range Comments TROPONIN I (BEAKER) (test kbrw=899) 0.08 ng/mL 0.00-0.03 Troponin I (TnI) levels must be interpreted in the context of the presenting symptoms and the clinical findings. Elevated TnI levels indicate myocardial damage, but are not specific for ischemic heart disease. Elevated TnI levels are seen in patients with other cardiac conditions (including myocarditis and congestive heart failure), and slight TnI elevations occur in patients with other conditions, including sepsis, renal failure, acidosis, acute neurological disease, and persistent tachyarrhythmia.POCT-GLUCOSE [id number] 23:19:00 Test Item Value Reference Range Comments POC-GLUCOSE METER (BEAKER) 137 mg/dL 70-110 TESTED AT [address] (test szyv=9971) [place] [address] POCT-GLUCOSE [id number] 17:31:00 Test Item Value Reference Range Comments POC-GLUCOSE METER (BEAKER) 126 mg/dL 70-110 TESTED AT [address] (test wmqe=6017) [place] [address] CREATINE KINASE (CK), TOTAL AND [id number] 17:16:00 Test Item Value Reference Range Comments CREATINE KINASE TOTAL (BEAKER) (test ypru=589) 322 U/L 29-200 CREATINE KINASE-MB (BEAKER) (test anse=874) 5.8 ng/mL 0.0-6.6 CREATINE KINASE-MB INDEX (BEAKER) (test mtui=377) 1.8 % CK-MB Reference Range:<6.7 Normal6.7-10.0 Borderline>10.0 AbnormalTROPONIN [id number] 17:06:00 Test Item Value Reference Range Comments TROPONIN I (BEAKER) (test wzsw=213) 0.08 ng/mL 0.00-0.03 Troponin I (TnI) levels must be interpreted in the context of the presenting symptoms and the clinical findings. Elevated TnI levels indicate myocardial damage, but are not specific for ischemic heart disease. Elevated TnI levels are seen in patients with other cardiac conditions (including myocarditis and congestive heart failure), and slight TnI elevations occur in patients with other conditions, including sepsis, renal failure, acidosis, acute neurological disease, and persistent tachyarrhythmia.URINALYSIS W/ [id number] 16: 04:00 Test Item Value Reference Range Comments COLOR (BEAKER) (test iykj=879) Light Yellow CLARITY (BEAKER) (test txyx=486) Clear SPECIFIC GRAVITY UA (BEAKER) (test xnwk=952) 1.006 1.001-1.035 PH UA (BEAKER) (test dfbd=284) 6.0 5.0-8.0 PROTEIN UA (BEAKER) (test lqne=259) 200 mg/dL Negative GLUCOSE UA (BEAKER) (test ncwu=257) Negative Negative KETONES UA (BEAKER) (test tnwu=142) Negative Negative BILIRUBIN UA (BEAKER) (test fajz=067) Negative Negative BLOOD UA (BEAKER) (test gdhd=246) Trace Negative NITRITE UA (BEAKER) (test zzca=959) Negative Negative LEUKOCYTE ESTERASE UA (BEAKER) (test jvcl=080) Negative Negative UROBILINOGEN UA (BEAKER) (test qedx=697) 0.2 mg/dL 0.2-1.0 RBC UA (BEAKER) (test chqq=302) < /HPF WBC UA (BEAKER) (test kfiu=217) < /HPF SOURCE(BEAKER) (test tdeu=0318) Urine, Voided CREATINE KINASE (CK), TOTAL AND [id number] 10:24:00 Test Item Value Reference Range Comments CREATINE KINASE TOTAL (BEAKER) (test hhdr=682) 377 U/L 29-200 CREATINE KINASE-MB (BEAKER) (test dbwv=260) 6.3 ng/mL 0.0-6.6 CREATINE KINASE-MB INDEX (BEAKER) (test jfnr=804) 1.7 % CK-MB Reference Range:<6.7 Normal6.7-10.0 Borderline>10.0 AbnormalTROPONIN [id number] 10:24:00 Test Item Value Reference Range Comments TROPONIN I (BEAKER) (test hdpz=051) 0.09 ng/mL 0.00-0.03 Troponin I (TnI) levels must be interpreted in the context of the presenting symptoms and the clinical findings. Elevated TnI levels indicate myocardial damage, but are not specific for ischemic heart disease. Elevated TnI levels are seen in patients with other cardiac conditions (including myocarditis and congestive heart failure), and slight TnI elevations occur in patients with other conditions, including sepsis, renal failure, acidosis, acute neurological disease, and persistent tachyarrhythmia.RAD, CHEST, 1 VIEW, NON [id number] 10:20:00Reason for exam:->sobShould this be performed at the bedside?-> NoFINAL REPORT Chest one view. Clinical history: sob Comparison: No priors Discussion: A frontal chest is provided. Cardiomediastinal contours are unremarkable. There are giblg-pr-okqfmugo bilateral pleural effusions. Opacity along the left lateral chest wall probably reflectsa loculated effusion, although mass lesion cannot be excluded. There is bibasilar atelectasis or consolidation. No pneumothorax. Status post median sternotomy. No acute bony abnormality. Signed: Sugey Ojeda MDReport Verified Date/ Time: 05/21/2017 10:20:07 Reading Location: [facility] Radiology Reading Room B- TYPE NATRIURETIC FACTOR (BNP)2017-05-21 10:16:00 Test Item Value Reference Range Comments B-TYPE NATRIURETIC PEPTIDE (BEAKER) (test 2852 pg/mL 0-100 dmdj=075) [id number] 10:15:00 Test Item Value Reference Range Comments MAGNESIUM (BEAKER) (test 2.0 mg/dL 1.6-2.6 Specimen slightly hemolyzed oker=203) BASIC METABOLIC [id number] 10:15:00 Test Item Value Reference Range Comments SODIUM (BEAKER) (test 140 meq/L 136-145 cjzn=780) POTASSIUM (BEAKER) (test 3.7 meq/L 3.5-5.1 Specimen slightly eodo=000) hemolyzed CHLORIDE (BEAKER) (test 106 meq/L 98-107 linc=562) CO2 (BEAKER) (test 26 meq/L 22-29 hosx=732) BLOOD UREA NITROGEN 30 mg/dL 7-21 (BEAKER) (test blyu=066) CREATININE (BEAKER) (test 2.13 mg/dL 0.57-1.25 Specimen slightly zifm=226) hemolyzed GLUCOSE RANDOM (BEAKER) 93 mg/dL 70-105 (test jmeh=310) CALCIUM (BEAKER) (test 8.3 mg/dL 8.4-10.2 hsjo=220) EGFR (BEAKER) (test 38 mL/min/1.73 sq m ESTIMATED GFR IS NOT qxyf=2047) ACCURATE CREATININE CLEARANCE IN PREDICTING GLOMERULAR FILTRATION RATE. ESTIMATED GFR IS NOT APPLICABLE FOR DIALYSIS PATIENTS. CBC W/PLT COUNT & AUTO [id number] 09:52:00 Test Item Value Reference Range Comments WHITE BLOOD CELL COUNT (BEAKER) (test gnys=075) 9.5 K/ L 3.5-10.5 RED BLOOD CELL COUNT (BEAKER) (test czch=866) 4.83 M/ L 4.63-6.08 HEMOGLOBIN (BEAKER) (test ubiw=970) 13.9 GM/DL 13.7-17.5 HEMATOCRIT (BEAKER) (test lilx=701) 45.1 % 40.1-51.0 MEAN CORPUSCULAR VOLUME (BEAKER) (test fcuh=379) 93.4 fL 79.0-92.2 MEAN CORPUSCULAR HEMOGLOBIN (BEAKER) (test 28.8 pg 25.7-32.2 ahxf=893) MEAN CORPUSCULAR HEMOGLOBIN CONC (BEAKER) (test 30.8 GM/DL 32.3-36.5 ggef=883) RED CELL DISTRIBUTION WIDTH (BEAKER) (test 12.6 % 11.6-14.4 zgpt=931) PLATELET COUNT (BEAKER) (test nmff=910) 262 K/CU MM 150-450 MEAN PLATELET VOLUME (BEAKER) (test tyso=084) 11.2 fL 9.4-12.4 NUCLEATED RED BLOOD CELLS (BEAKER) (test 0 /100 WBC 0-0 gbou=568) NEUTROPHILS RELATIVE PERCENT (BEAKER) (test 74 % wmbq=301) LYMPHOCYTES RELATIVE PERCENT (BEAKER) (test 19 % wvof=471) MONOCYTES RELATIVE PERCENT (BEAKER) (test 5 % apse=330) EOSINOPHILS RELATIVE PERCENT (BEAKER) (test 1 % imgz=698) BASOPHILS RELATIVE PERCENT (BEAKER) (test 1 % lrgu=677) NEUTROPHILS ABSOLUTE COUNT (BEAKER) (test 7.06 K/ L 1.78-5.38 lfxg=769) LYMPHOCYTES ABSOLUTE COUNT (BEAKER) (test 1.82 K/ L 1.32-3.57 rmnz=422) MONOCYTES ABSOLUTE COUNT (BEAKER) (test 0.45 K/ L 0.30-0.82 bycp=623) EOSINOPHILS ABSOLUTE COUNT (BEAKER) (test 0.07 K/ L 0.04-0.54 mpvc=599) BASOPHILS ABSOLUTE COUNT (BEAKER) (test 0.11 K/ L 0.01-0.08 iehe=207) IMMATURE GRANULOCYTES-RELATIVE PERCENT (BEAKER) 0 % 0-1 (test vtgb=6415) Comprehensive Metabolic [id number] 07:55:00 Test Item Value Reference Range Comments Sodium (test code=NA) 129 mmol/L 135-145 Potassium (test code=K) See Comment mmol/L 3.5-5.1 Grossly Hemolyzed Recollect for K called to Shala @[id number] called to Jannet in [employer] @2366 Chloride (test code=CL) 99 mmol/L 98-105 Carbon Dioxide (test 24 mmol/L 22-29 code=CO2) Glucose (test code=GLU) 117 mg/dL 70-115 Blood Urea Nitrogen 21 mg/dL 8-23 (test code=BUN) Creatinine (test 1.7 mg/dL 0.7-1.2 code=CREAT) Calcium (test code=CA) 7.8 mg/dL 8.3-10.5 Prot Total (test 8.0 g/dL 6.4-8.3 code=TP) Albumin (test code=ALB) 2.5 g/dL 3.5-5.2 A/G Ratio (test 0.5 Ratio code=AGRATIO) Globulin (test 5.5 2.9-3.1 code=GLOB) Bili Total (test 0.4 mg/dL 0.1-0.9 code=TBIL) Alk Phos (test 44 U/L 40-129 code=APHOS) AST (test code=AST) 213 U/L 1-40 Hemolyzed ALT (test code=ALT) 38 U/L 1-41 BUN/Creatinine Ratio 12.4 (test code=BCRATIO) Anion Gap (test 6 mmol/L 7-16 code=AGAP) Estimated GFR (test 53 mL/min/1.73m2 eGFR (estimated Glomerular code=GFR) Filtration Rate) is an estimated value,calculated from the patient's serum creatinine using the MDRD equation.It is NOT the patient's actual GFR. The eGFR provides a more clinicallyuseful measure of kidney disease than serum creatinine alone.This calculation takes sex and race into account, if the informationis provided. If the race is not provided, and the patient isAfrican-Icelandic, multiply by 1.212. If sex is not provided, and thepatient is female, multiply by 0.742. Results for patients <18 years ofage have not been validated by the MDRD study and should be interpretedwith caution.eGFR Result Interpretation:eGFR > or=60 is in the Normal RangeeGFR < 60 may mean kidney diseaseeGFR < 15 may mean kidney failureRanges recommended by the National Kidney Foundation,http://nkdep.ni h.gov XR CHEST 1 [id number] 07:44:23Portable chest one view.HISTORY: Precardiac catheterizationLocation L1 1COMMENT: Comparison chest one view 09/06/2015. Sternal retention wires.Mild cardiomegaly. Small bilateral pleural effusions. Bibasilarinfiltrates. Mild pulmonary vascular congestion. Right upper ribdeformity, possibly secondary to prior thoracotomy.Impression: Prior thoracotomy. Mild cardiomegaly. Mild pulmonaryvascular congestionwith small pleural effusions. Bibasilar infiltratesmay represent atelectasis.Prothrombin [id number] 07:33:00 Test Item Value Reference Range Comments PT (test code=PT) 10.50 seconds 9.78-13.35 INR (test code=INR) 0.92 Ratio 0.6-1.2 Partial Thromboplastin [id number] 07:33:00 Test Item Value Reference Range Comments aPTT (test code=PTT) 35.20 seconds 24.39-37.25 CBC with [id number] 07:22:00 Test Item Value Reference Range Comments WBC (test code=WBC) 7.9 K/cumm 4.4-10.5 RBC (test code=RBC) 4.75 M/cumm 4.10-5.70 Hemoglobin (test code=HGB) 14.0 gm/dL 13.4-17.4 Hematocrit (test code=HCT) 45.7 % 38.7-52.0 MCV (test code=MCV) 96.2 fL 80-100 MCH (test code=MCH) 29.5 pg 27.0-32.5 MCHC (test code=MCHC) 30.7 g/dL 32.0-37.5 RDW (test code=RDW) 12.7 % 11.5-14.5 Platelet Count (test code=PLTCT) 290 K/cumm 140-440 MPV (test code=MPV) 8.9 fL Diff Method (test code=DIFFM) Auto Neutrophil (test code=NEUT) 60.3 % 36-70 Lymphocyte (test code=LYMPH) 32.6 % 12-44 Monocyte (test code=MONO) 3.8 % 0-11 Eosinophil (test code=EOS) 2.6 % 0-7 Basophil (test code=BASO) 0.6 % 0-2 Neutro Abs (test code=ANEUT) 4.8 K/cumm 1.6-7.4 Lymph Abs (test code=ALYMPH) 2.6 K/cumm 0.5-4.6 [place] Abs (test code=AMONO) 0.3 K/cumm 0.0-1.2 Eos Abs (test code=AEOS) 0.21 K/cumm 0.00-0.74 Baso Abs (test code=ABASO) 0.1 K/cumm 0.00-0.21 POC Glucose, [id number] 07:01:00 Test Item Value Reference Range Comments POC Glucose (test 103 mg/dL 70-115 If you consider your patient code=POCGLUC) critically ill, the Monique Accu-Chek InformII metershould not be used for Glucose determinations.Draw a venous Glucose and send to the Main Lab for Analysis. Special Procedure Send [id number] 13:32:00 Test Item Value Reference Range Comments Performing Site (test code=SITE) see [facility] report Test Ordered (test code=TESTORD) B-Type Natriuretic Peptide
[2018-06-15 18:52] LABS: Absolute Lymphocytes (CBC) 0.9 K/uL (0.7-4.9); Absolute Monocytes 0.5 K/uL (0.1-1.3); Absolute Neutrophil 5.7 K/uL (1.8-8.0); Basophils % 0.6 % (0-1.3); Hematocrit 39.6 % (39.6-49.0); Lymphocytes % 13.1 % (15.3-44.8); MCH 29.2 pg (27.0-35.0); MCV 91.4 fL (80-100); MPV 9.5 fL (7.6-11.3); Monocytes % 6.5 % (3.3-12.3); RBC Red Blood Cell Count 4.33 M/uL (4.33-5.43)
--- NOTE | 2018-06-15 18:53 | RAD REPORT ---
EXAM DESCRIPTION: Lu Single View06/15/2018 6:42 pm CLINICAL HISTORY: Chest pain COMPARISON: None FINDINGS: Bibasilar lung opacities. . The heart is mildly enlarged. Postsurgical changes involve the chest. Pacemaker lead is in place IMPRESSION: Bibasilar lung opacities may represent pneumonia, pulmonary edema and/or pleural effusi ons/pleural scarring
[2018-06-15 18:55] LABS: Protime INR 1.18
--- NOTE | 2018-06-15 18:57 | RAD REPORT ---
EXAM DESCRIPTION: CT - Head Brain Wo Cont - 06/15/2018 6:50 pm CLINICAL HISTORY: Confusion COMPARISON: November 2016 TECHNIQUE: Computed axial tomography of the head was obtained. IV contrast was not requested. All CT scans are performed using dose optimization technique as appropriate and may include automated exposure control or mA/KV adjustment according to patient size. FINDINGS: An intracranial bleed is not seen . The ventricles are normal in caliber. No extra-axial fluid collection is noted. Mild low-density areas within periventricular, deep and sub cortical white matter likely represent ischemic changes secondary to small vessel disease. Mild opacification right right maxillary sinus IMPRESSION: No acute intracranial abnormality is seen.
[2018-06-15] MEDS ORDERED: CEFTRIAXONE/SWI 1gm 1 GM/10 ML SYR ONE (19:17)
[2018-06-15] MEDS ORDERED: AZITHROMYCIN 500 MG/250 ML BAG ONE (19:18)
[2018-06-15 19:25] LABS: Bilirubin Direct 1.3 mg/dL (0-0.2); Bilirubin Total 1.7 mg/dL (0.2-1.0)
[2018-06-15 19:26] LABS: Albumin 2.4 g/dL (3.4-5.0); Magnesium 2.3 mg/dL (1.8-2.4); Protein, Total 6.9 g/dL (6.4-8.2); Troponin (Emerg Dept Use Only) 0.05 ng/mL (0.0-0.045)
--- NOTE | 2018-06-15 21:06 | ER ---
Nurse's Notes [facility] Name: Dominic Hadley Age: 62 yrs Sex: Male : 1955 Arrival Date: 06/15/2018 Time: 17:31 Bed 23 Private MD: Diagnosis: Unspecified bacterial pneumonia Presentation: 06/15 17:35 Presenting complaint: Child states: generalized weakness, cough, fatigue for about a sv week. Transition of care: patient was not received from another setting of care. 17:35 Method Of Arrival: Wheelchair sv 17:35 Onset of symptoms was May 2018. Care prior to arrival: None. sv 17:35 Acuity: GAIL 3 sv 17:53 Risk Assessment: Do you want to hurt yourself or someone else? Patient reports no ls4 desire to harm self or others. Initial Sepsis Screen: Does the patient meet any 2 criteria? No. Patient's initial sepsis screen is negative. Does the patient have a suspected source of infection? No. Patient's initial sepsis screen is negative. Triage Assessment: 17:50 General: Appears in no apparent distress. Behavior is cooperative. Pain:. Neuro: Level ls4 of Consciousness is awake, alert, obeys commands. Cardiovascular: Denies chest pain, diaphoresis, fatigue, lightheadedness, nausea, palpitations, shortness of breath, syncope, vomiting. Respiratory: Reports cough that is non-productive, Airway is patent Respiratory effort is even, unlabored, Respiratory pattern is regular, Breath sounds with crackles bilaterally. Musculoskeletal: Circulation, motion, and sensation intact. Reports weakness in generalized. Historical: - Allergies: 17:37 No Known Allergies; sv - Home Meds: 18:42 carvedilol 3.125 mg oral tab 1 tab every 12 hours [Active]; labetalol 100 mg Oral tab 1 ls4 tab 2 times per day [Active]; atorvastatin 20 mg oral tab 1 tab once daily [Active]; furosemide 20 mg Oral tab 3 tabs 3 times per day [Active]; hydralazine 100 mg Oral tab 1 tab 3 times per day [Active]; levothyroxine 25 mcg tab 1 tab once daily [Active]; Imdur 30 mg Oral Tb24 1 tab once daily [Active]; famotidine 20 mg oral tab 1 tab 2 times per day [Active]; clopidogrel 75 mg oral tab 1 tab once daily [Active]; - PMHx: 18:42 CHF; Diabetes - NIDDM; Hypertension; heart dx; CAD; renal disease; prostate problems; ls4 - PSHx: 18:42 pacemaker; CABG; Hernia repair; Heart stents; ls4 - Immunization history:: Adult Immunizations unknown. - Ebola Screening: : Patient negative for fever greater than or equal to 101.5 degrees Fahrenheit, and additional compatible Ebola Virus Disease symptoms Patient denies exposure to infectious person Patient denies travel to an Ebola-affected area in the 21 days before illness onset No symptoms or risks identified at this time. - Social history:: Smoking status: Patient/guardian denies using tobacco, the patient reports quitting approximately 30 years ago. Screenin:49 Abuse screen: Denies threats or abuse. Denies injuries from another. Nutritional ls4 screening: No deficits noted. Tuberculosis screening: No symptoms or risk factors identified. Fall Risk None identified. Assessment: 18:43 General: Appears ill, Behavior is flat. Neuro: Level of Consciousness is awake, obeys ls4 commands, sleepy. Cardiovascular: Denies chest pain, diaphoresis, fatigue, lightheadedness, nausea, palpitations, shortness of breath, syncope. Respiratory: Airway is patent Respiratory effort is even, unlabored, Respiratory pattern is regular, Breath sounds with crackles bilaterally. Parent/caregiver reports the patient having cough that is non-productive. GI: Abdomen is round distended, Abd is non tender X 4 quads Parent/caregiver reports the patient having swollen belly over last month. 19:25 Reassessment: No changes from previously documented assessment. Patient and/or family ls4 updated on plan of care and expected duration. Pain level reassessed. Patient is alert, oriented x 3, equal unlabored respirations, skin warm/dry/pink. 20:22 Reassessment: Patient appears in no apparent distress at this time. Patient and/or ls4 family updated on plan of care and expected duration. Pain level reassessed. Patient is alert, oriented x 3, equal unlabored respirations, skin warm/dry/pink. 20:52 Reassessment: No changes from previously documented assessment. Patient and/or family ls4 updated on plan of care and expected duration. Pain level reassessed. appears sleeping, arouses to voice. follows command. given warm blankets. pt turned and repositioned. 21:27 Reassessment: No changes from previously documented assessment. Patient and/or family ls4 updated on plan of care and expected duration. Pain level reassessed. Vital Signs: 17:37 BP 153 / 77; Pulse 75; Resp 20; Temp 98.4; Pulse Ox 97% ; Weight 63.5 kg; Height 5 ft. sv 9 in. (175.26 cm); 17:43 BP 136 / 81; Pulse 73; Resp 18; Pulse Ox 94% on 2 lpm NC; ls4 19:25 BP 152 / 91; Pulse 80; Resp 16; Pulse Ox 99% on 2 lpm NC; Pain 0/10; ls4 20:16 BP 123 / 80; Pulse 77; Resp 16; Pulse Ox 99% on R/A; Pain 0/10; ls4 20:38 BP 123 / 80; Pulse 78; Resp 16; Pulse Ox 93% on 2 lpm NC; ls4 21:26 BP 136 / 92; Pulse 77; Resp 23; Temp 98.8(O); Pulse Ox 99% on 2 lpm NC; Pain 0/10; ls4 17:37 Body Mass Index 20.67 (63.50 kg, 175.26 cm) sv ED Course: 17:31 Patient arrived in ED. mr 17:35 Triage completed. sv 17:38 Arm band placed on. sv 17:43 Lea Orosco, FRANCISCO is Primary Nurse. ls4 17:45 Kandy Ware FNP is PHCP. nh 17:45 Dany Hadley MD is Attending Physician. nh 17:49 Patient has correct armband on for positive identification. Placed in gown. Bed in low ls4 position. Call light in reach. Side rails up X 1. bonding machine tender on. Pulse ox on. NIBP on. 17:49 No provider procedures requiring assistance completed. ls4 18:42 X-ray completed. Portable x-ray completed in exam room. Patient tolerated procedure la2 well. 18:42 XRAY Chest (1 view) In Process Unspecified. EDMS 18:50 CT Head Brain wo Cont In Process Unspecified. EDMS 18:50 Initial lab(s) drawn, by me, EKG done, by ED staff. Inserted saline lock: 20 gauge in ls4 right wrist, using aseptic technique. 19:23 Basic Metabolic Panel Sent. ls4 19:23 LFT's Sent. ls4 19:23 Magnesium Sent. ls4 19:23 NT PRO-BNP Sent. ls4 19:23 Troponin (emerg Dept Use Only) Sent. ls4 21:03 Hu Thomas MD is Hospitalizing Provider. ut Administered Medications: 19:10 Drug: Rocephin - (cefTRIAXone) 1 grams Route: IVPB; Infused Over: 30 mins; Site: right ls4 wrist; 21:55 Follow up: Response: No adverse reaction; IV Status: Completed infusion; IV Intake: 02ptib0 19:10 Drug: Zithromax 500 mg Route: IVPB; Infused Over: 1 hrs; Site: right wrist; ls4 20:40 Follow up: IV Status: Completed infusion; IV Intake: 250ml ls4 21:55 Follow up: Response: No adverse reaction ls4 Intake: 20:40 IV: 250ml; Total: 250ml. ls4 21:55 IV: 50ml; Total: 300ml. ls4 Outcome: 21:04 Decision to Hospitalize by Provider. ut 21:56 Admitted to Tele accompanied by tech, via stretcher, room 414, Report called to fay cheek RN 21:56 Condition: stable 21:57 Patient left the ED. ls4 Signatures: Dispatcher [employer] EDMS Sophie Henry, RN RN Kandy Ware, ADULT NEUROLOGIST ADULT NEUROLOGIST ut Edgar, Talya Vargas, [facility] Faustino, Lea Pereira RN RN ls4 Corrections: (The following items were deleted from the chart) 18:42 17:37 PMHx: CHF; sv ls4 18:42 17:37 PMHx: Diabetes - NIDDM; sv ls4 18:42 17:37 PMHx: Hypertension; sv ls4 18:42 17:37 PMHx: heart dx; sv ls4 18:42 17:37 PMHx: CAD; sv ls4 18:42 17:37 PMHx: renal disease; sv ls4 18:42 17:37 PMHx: prostate problems; sv ls4 18:42 17:37 PSHx: pacemaker; sv ls4 18:42 17:37 PSHx: CABG; sv ls4 18:42 17:37 PSHx: Hernia repair; sv ls4 18:42 17:37 PSHx: Heart stents; sv ls4 20:40 17:43 BP 136 / 81; Pulse 73bpm; Resp 18bpm; Pulse Ox 94% RA; mt ls4 20:40 19:25 BP 152 / 91; Pulse 80bpm; Resp 16bpm; Pulse Ox 99% RA; Pain 0/10; ls4 ls4 21:55 19:40 IV Status: Completed infusion; IV Intake: 50ml 4 ls4 21:57 21:56 Admitted to Tele accompanied by tech, via stretcher, room 414, 4 ls4
--- NOTE | 2018-06-15 21:06 | EDPHYS ---
Physician Documentation [facility] Name: Dominic Hadley Age: 62 yrs Sex: Male : 1955 Arrival Date: 06/15/2018 Time: 17:31 Bed 23 Private MD: ED Physician Dany Hadley HPI: 06/15 20:56 This 62 yrs old Black Male presents to ER via Wheelchair with complaints of Weakness, nh Cough. 20:56 The patient presents to the emergency department with weakness of the entire body, nh generalized weakness. Onset: The symptoms/episode began/occurred 3 day(s) ago. Associated signs and symptoms: Pertinent positives: altered mental status. Severity of symptoms: At their worst the symptoms were moderate just prior to arrival, in the emergency department the symptoms are unchanged. The patient has not experienced similar symptoms in the past. The patient has not recently seen a physician. Patient also reports cough and shortness of breath. Historical: - Allergies: 17:37 No Known Allergies; sv - Home Meds: 18:42 carvedilol 3.125 mg oral tab 1 tab every 12 hours [Active]; labetalol 100 mg Oral tab 1 ls4 tab 2 times per day [Active]; atorvastatin 20 mg oral tab 1 tab once daily [Active]; furosemide 20 mg Oral tab 3 tabs 3 times per day [Active]; hydralazine 100 mg Oral tab 1 tab 3 times per day [Active]; levothyroxine 25 mcg tab 1 tab once daily [Active]; Imdur 30 mg Oral Tb24 1 tab once daily [Active]; famotidine 20 mg oral tab 1 tab 2 times per day [Active]; clopidogrel 75 mg oral tab 1 tab once daily [Active]; - PMHx: 18:42 CHF; Diabetes - NIDDM; Hypertension; heart dx; CAD; renal disease; prostate problems; ls4 - PSHx: 18:42 pacemaker; CABG; Hernia repair; Heart stents; ls4 - Immunization history:: Adult Immunizations unknown. - Ebola Screening: : Patient negative for fever greater than or equal to 101.5 degrees Fahrenheit, and additional compatible Ebola Virus Disease symptoms Patient denies exposure to infectious person Patient denies travel to an Ebola-affected area in the 21 days before illness onset No symptoms or risks identified at this time. - Social history:: Smoking status: Patient/guardian denies using tobacco, the patient reports quitting approximately 30 years ago. ROS: 20:56 Eyes: Negative for injury, pain, redness, and discharge, ENT: Negative for injury, nh pain, and discharge, Neck: Negative for injury, pain, and swelling, Cardiovascular: Negative for chest pain, palpitations, and edema, Abdomen/GI: Negative for abdominal pain, nausea, vomiting, diarrhea, and constipation, Back: Negative for injury and pain, : Negative for injury, bleeding, discharge, and swelling, MS/Extremity: Negative for injury and deformity, Skin: Negative for injury, rash, and discoloration, Psych: Negative for depression, anxiety, suicide ideation, homicidal ideation, and hallucinations, Allergy/Immunology: Negative for hives, rash, and allergies, Endocrine: Negative for neck swelling, polydipsia, polyuria, polyphagia, and marked weight changes, Hematologic/Lymphatic: Negative for swollen nodes, abnormal bleeding, and unusual bruising. 20:56 Constitutional: Positive for fatigue, malaise. 20:56 Respiratory: Positive for cough, "sounds productive". 20:56 Neuro: Positive for altered mental status. Exam: 20:56 Head/Face: Normocephalic, atraumatic. Eyes: Pupils equal round and reactive to light, nh extra-ocular motions intact. Lids and lashes normal. Conjunctiva and sclera are non-icteric and not injected. Cornea within normal limits. Periorbital areas with no swelling, redness, or edema. ENT: Nares patent. No nasal discharge, no septal abnormalities noted. Tympanic membranes are normal and external auditory canals are clear. Oropharynx with no redness, swelling, or masses, exudates, or evidence of obstruction, uvula midline. Mucous membranes moist. Neck: Trachea midline, no thyromegaly or masses palpated, and no cervical lymphadenopathy. Supple, full range of motion without nuchal rigidity, or vertebral point tenderness. No Meningismus. Chest/axilla: Normal chest wall appearance and motion. Nontender with no deformity. No lesions are appreciated. Cardiovascular: Regular rate and rhythm with a normal S1 and S2. No gallops, murmurs, or rubs. Normal PMI, no JVD. No pulse deficits. Respiratory: Lungs have equal breath sounds bilaterally, clear to auscultation and percussion. No rales, rhonchi or wheezes noted. No increased work of breathing, no retractions or nasal flaring. Abdomen/GI: Soft, non-tender, with normal bowel sounds. No distension or tympany. No guarding or rebound. No evidence of tenderness throughout. Back: No spinal tenderness. No costovertebral tenderness. Full range of motion. Skin: Warm, dry with normal turgor. Normal color with no rashes, no lesions, and no evidence of cellulitis. MS/ Extremity: Pulses equal, no cyanosis. Neurovascular intact. Full, normal range of motion. Psych: Awake, alert, with orientation to person, place and time. Behavior, mood, and affect are within normal limits. 20:56 Constitutional: The patient appears obviously ill, uncomfortable. 20:56 Neuro: Orientation: is normal, Mentation: is normal, Memory: is normal. Vital Signs: 17:37 BP 153 / 77; Pulse 75; Resp 20; Temp 98.4; Pulse Ox 97% ; Weight 63.5 kg; Height 5 ft. sv 9 in. (175.26 cm); 17:43 BP 136 / 81; Pulse 73; Resp 18; Pulse Ox 94% on 2 lpm NC; ls4 19:25 BP 152 / 91; Pulse 80; Resp 16; Pulse Ox 99% on 2 lpm NC; Pain 0/10; ls4 20:16 BP 123 / 80; Pulse 77; Resp 16; Pulse Ox 99% on R/A; Pain 0/10; ls4 20:38 BP 123 / 80; Pulse 78; Resp 16; Pulse Ox 93% on 2 lpm NC; ls4 21:26 BP 136 / 92; Pulse 77; Resp 23; Temp 98.8(O); Pulse Ox 99% on 2 lpm NC; Pain 0/10; ls4 17:37 Body Mass Index 20.67 (63.50 kg, 175.26 cm) sv MDM: 17:45 Patient medically screened. nh 20:56 Data reviewed: vital signs, nurses notes, lab test result(s), EKG, radiologic studies, nh I have discussed the patient's presentation/case with the attending Emergency Department Physician; and as a result, I will admit patient, administer antibiotics Rocephin, Zithromax. Test interpretation: by ED physician or midlevel provider: ECG. Physician consultation: Hu Thomas MD was called at 21:02, was contacted at 21:02, regarding admission, to the medical/surgical unit. Admission orders: after a detailed discussion of the patient's condition and case, the admit orders are written by me. 06/15 18:03 Order name: Basic Metabolic Panel fl 06/15 18:03 Order name: CBC with Diff; Complete Time: 19:01 fl 08 18:03 Order name: LFT's fl 06/15 18:03 Order name: Magnesium fl 06/15 18:03 Order name: NT PRO-BNP fl 06/15 18:03 Order name: PT-INR; Complete Time: 19:01 fl 06/15 18:03 Order name: Troponin (emerg Dept Use Only) fl 06/15 18:05 Order name: Basic Metabolic Panel; Complete Time: 19:36 EDMS 06/15 18:05 Order name: Liver (Hepatic) Function; Complete Time: 19:36 EDMS 06/15 18:05 Order name: Magnesium; Complete Time: 19:36 EDMS 06/15 18:05 Order name: NT PRO-BNP; Complete Time: 19:36 EDMS 08 18:05 Order name: Troponin (Emerg Dept Use Only); Complete Time: 19:36 EDMS 06/15 19:40 Order name: Blood Culture Adult (2) fl 06/15 19:45 Order name: Lactate fl 06/15 18:03 Order name: XRAY Chest (1 view); Complete Time: 19:01 fl 08 18:03 Order name: EKG; Complete Time: 18:05 fl 08 18:03 Order name: Cardiac monitoring; Complete Time: 18:11 fl 08 18:03 Order name: EKG - Nurse/Tech; Complete Time: 18:11 fl 08 18:03 Order name: IV Saline Lock; Complete Time: 18:12 fl 08 18:03 Order name: Labs collected and sent; Complete Time: 18:12 fl 06/15 18:03 Order name: O2 Per Protocol; Complete Time: 18:12 fl 08 18:03 Order name: O2 Sat Monitoring; Complete Time: 18:12 fl 08 18:03 Order name: CT Head Brain wo Cont; Complete Time: 19:01 fl 06/15 18:34 Order name: Labs - recollect needed; Complete Time: 18:48 ss Administered Medications: 19:10 Drug: Rocephin - (cefTRIAXone) 1 grams Route: IVPB; Infused Over: 30 mins; Site: right ls4 wrist; 21:55 Follow up: Response: No adverse reaction; IV Status: Completed infusion; IV Intake: [id number] 19:10 Drug: Zithromax 500 mg Route: IVPB; Infused Over: 1 hrs; Site: right wrist; ls4 20:40 Follow up: IV Status: Completed infusion; IV Intake: 250ml ls4 21:55 Follow up: Response: No adverse reaction ls4 Disposition: 06/15/18 21:04 Hospitalization ordered by Hu Thomas for Inpatient Admission. Preliminary diagnosis is Unspecified bacterial pneumonia. - Bed requested for Telemetry/MedSurg (Inpatient). - Status is Inpatient Admission. ls4 - Condition is Stable. - Problem is new. - Symptoms are unchanged. UTI on Admission? No Addendum: 06/17/2018 06:31 Co-signature as Attending Physician, Dany Hadley MD I agree with the assessment and c hernadez plan of care. Signatures: Dispatcher [employer] Sophie Hanna RN RN sv Webb, Martha, RN RN mw Anderson, Corey, MD MD cha Cronk, Niki, W[employer] CLE[employer]ER W[employer] CLEANER Shazia Goodwin RN RN ss Stewart, Lisa, RN RN ls4 Corrections: (The following items were deleted from the chart) 06/15 18:42 17:37 PMHx: CHF; sv ls4 18:42 17:37 PMHx: Diabetes - NIDDM; sv ls4 18:42 17:37 PMHx: Hypertension; sv ls4 18:42 17:37 PMHx: heart dx; sv ls4 18:42 17:37 PMHx: CAD; sv ls4 18:42 17:37 PMHx: renal disease; sv ls4 18:42 17:37 PMHx: prostate problems; sv ls4 18:42 17:37 PSHx: pacemaker; sv ls4 18:42 17:37 PSHx: CABG; sv ls4 18:42 17:37 PSHx: Hernia repair; sv ls4 18:42 17:37 PSHx: Heart stents; sv ls4 21:18 21:04 Hospitalization Ordered by Hu Thomas MD for Inpatient Admission. Preliminary mw diagnosis is Unspecified bacterial pneumonia. Bed requested for Telemetry/MedSurg (Inpatient). Status is Inpatient Admission. Condition is Stable. Problem is new. Symptoms are unchanged. UTI on Admission? No. fl 21:57 21:18 06/15/2018 21:04 Hospitalization Ordered by Hu Thomas MD for Inpatient ls4 Admission. Preliminary diagnosis is Unspecified bacterial pneumonia. Bed requested for Telemetry/MedSurg (Inpatient). Status is Inpatient Admission. Condition is Stable. Problem is new. Symptoms are unchanged. UTI on Admission? No. mw
[2018-06-15] MEDS ORDERED: ACETAMINOPHEN 500 MG TAB PO PRN (21:29)
[2018-06-15] MEDS ORDERED: MORPHINE 2 MG/ML SYR IV PRN (21:29)
[2018-06-15] MEDS ORDERED: ONDANSETRON 4 MG/2 ML VIAL IV PRN (21:29)
[2018-06-15] MEDS ORDERED: NA CHLORIDE 0.9% 1,000 ML IV SCH (22:00)
[2018-06-16 06:06] LABS: Absolute Lymphocytes (CBC) 0.7 K/uL (0.7-4.9); Absolute Monocytes 0.4 K/uL (0.1-1.3); Absolute Neutrophil 5.5 K/uL (1.8-8.0); Basophils % 0.5 % (0-1.3); Hematocrit 39.5 % (39.6-49.0); Lymphocytes % 11.1 % (15.3-44.8); MCH 29.5 pg (27.0-35.0); MCV 92.2 fL (80-100); MPV 9.6 fL (7.6-11.3); Monocytes % 6.2 % (3.3-12.3); RBC Red Blood Cell Count 4.28 M/uL (4.33-5.43)
[2018-06-16 06:11] LABS: Albumin 2.2 g/dL (3.4-5.0); Bilirubin Total 1.1 mg/dL (0.2-1.0); Potassium 4.3 mmol/L (3.5-5.1); Protein, Total 6.4 g/dL (6.4-8.2)
[2018-06-16] MEDS ORDERED: PNEUMOCOCCAL VACCINE 0.5 ML IMVAC ONE (08:00)
[2018-06-16] MEDS ORDERED: INFLUENZA VACCINE (for 3y+) 0.5 ML DOSE IMVAC ONE (08:00)
[2018-06-16 09:16] LABS: Urine Appearance CLEAR; Urine Blood NEGATIVE (NEG); Urine Color DK YELLOW; Urine Glucose NEGATIVE (NEG); Urine Protein 3+ (NEG); Urine Specific Gravity 1.015 (1.005-1.030)
[2018-06-16 09:30] LABS: Urine Microscopic Reflex ORDER UMIC
[2018-06-16 09:48] LABS: Urine Bacteria <20 /HPF (NONE SEEN); Urine Culture Reflex Order NOT NEEDED; Urine RBC <5 /HPF (NONE SEEN)
[2018-06-16 10:14] LABS: Urine Bilirubin 1+ (NEG)
--- NOTE | 2018-06-16 13:44 | P.PN ---
Subjective Date of Service: 06/16/18 Patient seen and examined at bedside with RN. Chart reviewed. Case discussed with nursing staff at bedside. This morning patient does appear to be lethargic. Alert and oriented x2. Is able to be arousable easily is following commands however very weak. Review of Systems 10-point ROS is otherwise unremarkable Physical Examination - Vital Signs Temperature: 98.1 F Blood Pressure: 121/69 Pulse: 76 Respirations: 18 Pulse Ox (%): 99 - Physical Exam General: Alert, In no apparent distress HEENT: Atraumatic, PERRLA, EOMI Neck: Supple, JVD not distended Respiratory: Clear to auscultation bilaterally, Normal air movement Cardiovascular: Regular rate/rhythm, Normal S1 S2 Gastrointestinal: Normal bowel sounds, No tenderness Musculoskeletal: No tenderness Integumentary: No rashes Neurological: Normal speech, Normal tone, Normal affect Lymphatics: No axilla or inguinal lymphadenopathy - Studies Laboratory Data (last 24 hrs) 06/15/18 18:45: PT 13.9 H, INR 1.18 06/15/18 18:45: WBC 7.1, Hgb 12.6 L, Hct 39.6, Plt Count 174 06/15/18 18:45: Sodium 140, Potassium 4.0, BUN 54 H, Creatinine 3.20 H, Glucose 95, Magnesium 2.3, Total Bilirubin 1.7 H, AST 28, ALT 23, Alkaline Phosphatase 122 H Medications List Reviewed: Yes Assessment And Plan - Current Problems (Diagnosis) (1) Generalized weakness Current Visit: Yes Status: Acute Plan: Patient does appear to be having generalized weakness most likely secondary to uremic syndrome -will consult PT here in the hospital along with occupational therapy (2) BRADFORD (acute kidney injury) Current Visit: Yes Status: Acute Plan: BRADFORD most likely secondary to chronic uncontrolled high blood pressure and CAD -cautious with IV fluids due to elevated pro BNP -will get an echocardiogram done here in the hospital along with CT abdomen chest and pelvis to rule out any acute abnormality -consulted nephrology at this time for further recommendations -will monitor patient closely -restarted on home medications (3) HTN (hypertension) Current Visit: Yes Status: Chronic Qualifiers: Hypertension type: essential hypertension Qualified Code(s): I10 - Essential (primary) hypertension (4) Coronary artery disease Current Visit: No Status: Chronic Qualifiers: Coronary Disease-Associated Artery/Lesion type: [place] artery [place] vs. transplanted heart: [place] heart Associated angina: without angina Qualified Code(s): I25.10 - Atherosclerotic heart disease of [place] coronary artery without angina pectoris - Plan Pending clinical improvement at this. Discharge Plan: Home Plan to discharge in: 48 Hours - Code Status/Comfort Care Code Status Assessed: Yes Critical Care: No
--- NOTE | 2018-06-16 13:49 | RAD REPORT ---
EXAM DESCRIPTION: - CT CHEST,ABD,PELVIS W/O - 06/16/2018 1:[address] - CT CHEST,ABD,PELVIS W/O - 06/16/2018 1:29 pm CLINICAL HISTORY: Chest and abdomen pain. SOB, Abd PAIN and AMS COMPARISON: No comparisons TECHNIQUE: A limited noncontrast study is submitted. All CT scans are performed using dose optimization technique as appropriate and may include automated exposure control or mA/KV adjustment according to patient size. FINDINGS: Atelectasis is present in both lung bases.Moderate bilateral pleural effusions are present , larger on the right and showing lobulated contour likely indicating loculation.Calcified mediastina l and hilar adenopathy seen most compatible with prior granulomatous infection.The heart is normal in size with dual lead pacer device present. The liver, spleen, pancreas, adrenal glands and kidneys are within normal limits. Mild ascites is pre sent. Diffuse edema throughout the soft tissues most compatible with anasarca. No bowel obstruction or free intraperitoneal air. No evidence of intra-abdominal abscess. Normal appe ndix. Atherosclerosis is present of the aorta. No pathologic lymphadenopathy in the abdomen or pelvis . No fracture seen. IMPRESSION: A prominent fluid retention pattern is seen with anasarca, mild ascites and bilateral mo derate pleural effusions, larger on the right.
[2018-06-16] MEDS: FAMOTIDINE 20 MG TAB PO SCH (15:39)
[2018-06-16] MEDS: HYDRALAZINE HCL 25 MG TABLET PO SCH ×2 (15:39→21:06)
--- NOTE | 2018-06-16 17:03 | RAD REPORT ---
EXAM DESCRIPTION: US - Chest - 06/16/2018 4:55 pm CLINICAL HISTORY: Pleural effusion COMPARISON: None. FINDINGS: Bilateral chest sonography performed. Moderate pleural effusions are seen in each lower [place] ng base. No septation or thickened rind identified. No significant loculation identifiable. IMPRESSION: Moderate bilateral pleural effusions without evidence for loculation.
--- NOTE | 2018-06-16 17:04 | RAD REPORT ---
EXAM DESCRIPTION: RAD - Chest Lateral Decubitus - 06/16/2018 4:44 pm CLINICAL HISTORY: Pleural effusions COMPARISON: CT chest same date TECHNIQUE: Right and left lateral decubitus films were obtained. FINDINGS: Moderate bilateral pleural effusions are identifiable. Both pleural effusions are seen to layer. Layering is more defined on the right. The significant extent of loculation is not identifiabl e. IMPRESSION: Moderate-sized bilateral layering pleural effusions.
[2018-06-16] MEDS ORDERED: HOME MED 1 EA UNK (Labetalol Hcl [Trandate] 200 MG) PO SCH (21:00)
[2018-06-16] MEDS ORDERED: CARVEDILOL 3.125 MG TAB PO SCH (21:00)
[2018-06-16] MEDS: ATORVASTATIN 20 MG TAB PO SCH (21:06)
--- NOTE | 2018-06-16 21:31 | P.HP ---
Certification for Inpatient Patient admitted to: Inpatient With expected LOS: >2 Midnights Patient will require the following post-hospital care: None Practitioner: I am a practitioner with admitting privileges, knowledge of patient current condition, hospital course, and medical plan of care. Services: Services provided to patient in accordance with Admission requirements found in Title 42 Section 412.3 of the Code of Federal Regulations Patient History Date of Service: 06/15/18 Reason for admission: BRADFORD/Generalized weakness History of Present Illness: Patient is a 62yo who was admitted to the hospital with generalized weakness. Patient is also developing worsening renal function. He is not a real good historian. He presented with generalized weakness as well. He has a history of renal insufficiency. He was admitted to the hospital for further evaluation. Allergies Penicillins Allergy (Verified 06/16/18 04:20) Hives Home Medications: Atorvastatin Calcium [Lipitor*] 20 mg PO BEDTIME 12/19/15 Furosemide 40 mg PO DAILY 12/19/15 Insulin Detemir [Levemir] 10 units SQ BEDTIME 12/19/15 Carvedilol 3.125 mg PO BID 06/15/18 Clopidogrel Bisulfate [Plavix] 75 mg PO DAILY 06/15/18 Famotidine [Pepcid*] 20 mg PO BID 06/15/18 Hydralazine HCl [Apresoline] 50 mg PO TID 06/15/18 Insulin Aspart [Novolog] See Protocol SQ ACHS 06/15/18 Isosorbide Mononitrate [Isosorbide Mononitrate ER] 30 mg PO DAILY 06/15/18 Labetalol HCl [Trandate] 200 mg PO BID 06/15/18 Levothyroxine [Synthroid] 25 mcg PO [id number] 06/15/18 - Past Medical/Surgical History Has patient received pneumonia vaccine in the past: No Diabetic: Yes -: [place] -: PAD -: HTN -: Diabetes -: Hepatitis-C -: Coronary artery bypass grafting x3 -: hernia repair - Family History Father Family History: Reviewed- Non-Contributory - Social History Smoking Status: Never smoker Alcohol use: No CD- Drugs: No Caffeine use: Yes Place of Residence: Home Review of Systems 10-point ROS is otherwise unremarkable Physical Examination - Vital Signs Temperature: 97.8 F Blood Pressure: 159/91 Pulse: 78 Respirations: 21 Pulse Ox (%): 95 - Physical Exam General: Alert, In no apparent distress, Oriented x2 HEENT: Atraumatic, PERRLA, Mucous membr. moist/pink, EOMI, Sclerae nonicteric Neck: Supple, 2+ carotid pulse no bruit, No LAD, Without JVD or thyroid abnormality Respiratory: Clear to auscultation bilaterally, Normal air movement Cardiovascular: Regular rate/rhythm, Normal S1 S2, No murmurs Gastrointestinal: Normal bowel sounds, Soft and benign, Non-distended, No tenderness Musculoskeletal: No clubbing, No swelling, No tenderness Integumentary: No rashes Neurological: Normal gait, Normal speech, Normal tone, Sensation intact, Cranial nerves 3-12 intact, Normal affect, Abnormal gait, Abnormal strength Lymphatics: No axilla or inguinal lymphadenopathy Assessment & Plan - Problems (Diagnosis) (1) BRADFORD (acute kidney injury) Current Visit: Yes Status: Acute (2) Generalized weakness Current Visit: Yes Status: Acute (3) HTN (hypertension) Current Visit: Yes Status: Chronic Qualifiers: Hypertension type: essential hypertension Qualified Code(s): I10 - Essential (primary) hypertension (4) Coronary artery disease Current Visit: No Status: Chronic Qualifiers: Coronary Disease-Associated Artery/Lesion type: [place] artery [place] vs. transplanted heart: [place] heart Associated angina: without angina Qualified Code(s): I25.10 - Atherosclerotic heart disease of [place] coronary artery without angina pectoris - Plan PLAN: 1. IV hydration 2. Monitor labs 3. Renal consult 4. Pain control 5. Strict BP and BS control 6. Renal doppler 7. Monitor urine protein 8. Albumin Discharge Plan: Home Plan to discharge in: Greater than 2 days - Advance Directives Does patient have a Living Will: No Does patient have a Durable POA for Healthcare: No - Code Status/Comfort Care Code Status Assessed: Yes Code Status: Full Code Critical Care: No Time Spent Managing PTS Care (In Minutes): 50
[2018-06-17] MEDS: LEVOTHYROXINE SOD 0.025 MG TAB PO SCH (05:14)
[2018-06-17 05:57] LABS: Absolute Lymphocytes (CBC) 0.9 K/uL (0.7-4.9); Absolute Monocytes 0.3 K/uL (0.1-1.3); Absolute Neutrophil 4.3 K/uL (1.8-8.0); Basophils % 0.7 % (0-1.3); Eosinophils % 0.4 % (0-4.4); Hematocrit 41.4 % (39.6-49.0); Lymphocytes % 15.6 % (15.3-44.8); MCH 29.6 pg (27.0-35.0); MCV 91.7 fL (80-100); MPV 10.3 fL (7.6-11.3); Monocytes % 5.3 % (3.3-12.3); RBC Red Blood Cell Count 4.51 M/uL (4.33-5.43)
[2018-06-17 06:03] LABS: Albumin 2.3 g/dL (3.4-5.0); Bilirubin Total 1.1 mg/dL (0.2-1.0); Potassium 4.3 mmol/L (3.5-5.1); Protein, Total 6.9 g/dL (6.4-8.2); Uric Acid 9.9 mg/dL (3.5-7.2)
--- NOTE | 2018-06-17 07:14 | EKG ---
Test Date: 2018-06-15 Test Time: 18:06:22 Chef Instructor: CHERYL MEASUREMENT RESULTS: Intervals: Rate: 71 MA: 134 QRSD: 102 QT: 446 QTc: 484 [place]: P: 53 MA: 134 QRS: 60 T: 185 INTERPRETIVE STATEMENTS: Sinus rhythm with premature atrial complexes Low voltage QRS Cannot rule out Anteroseptal infarct, age undetermined ST & T wave abnormality, consider inferolateral ischemia Abnormal ECG No previous ECG available for comparison Electronically Signed On 06-17-18 07:11:11 LOAN SPECIALIST by Martell Ramires
[2018-06-17 07:36] LABS: Urine Appearance CLEAR; Urine Blood NEGATIVE (NEG); Urine Color DK YELLOW; Urine Glucose TRACE (NEG); Urine Protein 3+ (NEG); Urine pH 5.5 (5.0-7.0)
[2018-06-17 08:20] LABS: Urine Bilirubin 1+ (NEG)
[2018-06-17] MEDS ORDERED: FUROSEMIDE 40 MG/4 ML VIAL IV ONE (08:24)
[2018-06-17 08:28] LABS: Rheumatoid Factor NEG (NEG)
--- NOTE | 2018-06-17 08:29 | P.CNS ---
Date of Consult: 06/17/18 Chief Complaint: Pleural effusion History of Present Illness: Patient is 62 years of age. 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 lives in [place] and appeared in this hospital diabetic hypertensive Allergies Penicillins Allergy (Verified 06/16/18 04:20) Hives Home Medications: Atorvastatin Calcium [Lipitor*] 20 mg PO BEDTIME 12/19/15 Furosemide 40 mg PO DAILY 12/19/15 Insulin Detemir [Levemir] 10 units SQ BEDTIME 12/19/15 Carvedilol 3.125 mg PO BID 06/15/18 Clopidogrel Bisulfate [Plavix] 75 mg PO DAILY 06/15/18 Famotidine [Pepcid*] 20 mg PO BID 06/15/18 Hydralazine HCl [Apresoline] 50 mg PO TID 06/15/18 Insulin Aspart [Novolog] See Protocol SQ ACHS 06/15/18 Isosorbide Mononitrate [Isosorbide Mononitrate ER] 30 mg PO DAILY 06/15/18 Labetalol HCl [Trandate] 200 mg PO BID 06/15/18 Levothyroxine [Synthroid] 25 mcg PO [id number] 06/15/18 - Past Medical/Surgical History Diabetic: Yes -: [place] -: PAD -: HTN -: Diabetes -: Hepatitis-C -: Coronary artery bypass grafting x3 -: hernia repair - Family History Father Family History: Reviewed- Non-Contributory - Social History Smoking Status: Never smoker Alcohol use: No CD- Drugs: No Caffeine use: Yes Place of Residence: Home Review of Systems General: Weakness Respiratory: Cough, Shortness of Breath Cardiovascular: Edema Physical Examination Temp Pulse Resp BP Pulse Ox 97.3 F 74 20 157/88 H 93 06/17/18 04:00 06/17/18 04:00 06/17/18 04:00 06/17/18 04:00 06/17/18 04:00 General: Alert, Oriented x3 HEENT: Atraumatic Neck: Supple Respiratory: Diminished (Diminished air entry bilaterally) Cardiovascular: Normal S1 S2, Edema (Bilateral edema to be some element of lymphedema) Gastrointestinal: Normal bowel sounds, Soft and benign - Problems (1) Pleural effusion Current Visit: Yes Status: Acute Plan: Patient is 62 years of age admitted with generalized anasarca worsening renal function he does live in [facility] I suspect he has volume overload with bilateral pleural effusion patient would need IV Lasix also has diabetes hypertension very mildly anemic saturation is satisfactory I have added some IV Lasix nephrology consultation pending as far as a pleural effusion is concerned no thoracentesis is indicated at this present moment pleural effusions are bilateral patient will need to take the Lasix at home in addition to fluid restriction does not qualify for home O2
[2018-06-17 08:31] LABS: Urine Bacteria <20 /HPF (NONE SEEN); Urine Culture Reflex Order NOT NEEDED; Urine RBC NONE SEEN /HPF (NONE SEEN)
[2018-06-17] MEDS ORDERED: CARVEDILOL 3.125 MG TAB PO SCH (09:00)
[2018-06-17] MEDS: FAMOTIDINE 20 MG TAB PO SCH (09:38)
[2018-06-17] MEDS: HYDRALAZINE HCL 25 MG TABLET PO SCH ×3 (09:38→20:37)
[2018-06-17] MEDS: CLOPIDOGREL 75 MG TABLET PO SCH (09:38)
[2018-06-17] MEDS: ISOSORBIDE MONO SR 30 MG TAB PO SCH (09:38)
[2018-06-17] MEDS: VITAMIN D 5,000 UNIT CAP PO SCH (09:38)
--- NOTE | 2018-06-17 10:53 | ECHO ---
HEIGHT: 5 ft 9 in WEIGHT: 153 lb 1.6 oz DATE OF STUDY: 06/17/[address]: Risa Rios MD 2-DIMENSIONAL: YES M.MODE: YES DOPPLER: YES COLOR FLOW: YES TDS: NO PORTABLE: NO DEFINITY: NO BUBBLE STUDY: NO DIAGNOSIS: SHORTNESS OF BREATH CARDIAC HISTORY: CATHERIZATION: NO SURGERY: CABG PROSTHETIC VALVE: NO PACEMAKER: YES MEASUREMENTS (cm) DIASTOLIC (NORMALS) SYSTOLIC (NORMALS) IVSd 1.0 (0.6-1.2) LA Diam 4.2 (1.9-4.0) LVEF 26% LVIDd 4.7 (3.5-5.7) LVIDs 4.2 (2.0-3.5) %FS 12% LVPWd 1.1 (0.6-1.2) Ao Diam 2.7 (2.0-3.7) 2 DIMENSIONAL ASSESSMENT: RIGHT ATRIUM: DILATED LEFT ATRIUM: DILATED RIGHT VENTRICLE: DEFIBRILLATOR CATHETER IN RIGHT VENTRICLE LEFT VENTRICLE: NORMAL TRICUSPID VALVE: NORMAL MITRAL VALVE: NORMAL PULMONIC VALVE: NORMAL AORTIC VALVE: NORMAL PERICARDIAL EFFUSION: NONE AORTIC ROOT: NORMAL LEFT VENTRICULAR WALL MOTION: SEVERE GLOBAL HYPOKINESIS. DOPPLER/COLOR FLOW: MOD TRICUSPID REGURGITATION. ESTIMATED RIGHT VENTRICULAR SYSTOLIC PRESSURE 68mmHg (SEVERE PULMONARY HYPERTENSION). MILD AORTIC AND MITRAL REGURGITATION. COMMENTS: SEVERELY DEPRESSED LEFT VENTRICULAR EJECTION FRACTION. DILATED LEFT AND RIGHT ATRIUM. DEFIBRILLATOR CATHETER IN RIGHT VENTRICULAR APEX. MODERATE TRICUSPID REGURGITATION. MILD AORTIC AND MITRAL REGURGITATION. SEVERE PULMONARY HYPERTENSION. TECHNOLOGIST: UDAY SALAZAR
--- NOTE | 2018-06-17 13:45 | P.PN ---
Subjective Date of Service: 06/17/18 Chief Complaint: Pleural effusion Patient seen and examined at bedside with RN. Chart reviewed. Case discussed with nursing staff at bedside. Patient doing well today. No complaints to offer overnight. Is more alert and oriented x3 today than yesterday. Review of Systems 10-point ROS is otherwise unremarkable Physical Examination - Vital Signs Temperature: 98.3 F Blood Pressure: 133/87 Pulse: 73 Respirations: 18 Pulse Ox (%): 94 - Physical Exam General: Alert, In no apparent distress HEENT: Atraumatic, PERRLA, EOMI Neck: Supple, JVD not distended Respiratory: Normal air movement, Crackles/rales Cardiovascular: Regular rate/rhythm, Normal S1 S2 Gastrointestinal: Normal bowel sounds, No tenderness Musculoskeletal: No tenderness Integumentary: No rashes Neurological: Normal speech, Normal tone, Normal affect Lymphatics: No axilla or inguinal lymphadenopathy - Studies Medications List Reviewed: Yes Assessment And Plan - Current Problems (Diagnosis) (1) CHF (congestive heart failure) Current Visit: Yes Status: Acute Plan: Acute on chronic congestive heart failure. -echocardiogram with EF of 25%. -cardiology is consulted at this time. -IV Lasix, beta-rachana, ABHINAV-inhibitor for now Qualifiers: Heart failure type: systolic Heart failure chronicity: acute on chronic Qualified Code(s): I50.23 - Acute on chronic systolic (congestive) heart failure (2) Pleural effusion Onset Date: 06/17/18 Current Visit: Yes Status: Acute Plan: Pleural effusion bilateral noted on the CT chest. Possible loculation noted as well -pulmonology consulted appreciated recommendations at this time -IV Lasix at this time -will continue to monitor closely (3) BRADFORD (acute kidney injury) Onset Date: 06/17/18 Current Visit: Yes Status: Acute Plan: BRADFORD most likely secondary to cardiorenal syndrome -BUN and creatinine improving today most likely secondary to cardiorenal syndrome -nephrology consulted. Recommendations appreciated -IV Lasix at this time. Continue to monitor BUN and creatinine (4) Generalized weakness Onset Date: 06/17/18 Current Visit: Yes Status: Acute Plan: Patient does appear to be having generalized weakness most likely secondary to uremic syndrome -will consult PT here in the hospital along with occupational therapy (5) HTN (hypertension) Onset Date: 06/17/18 Current Visit: Yes Status: Chronic Qualifiers: Hypertension type: essential hypertension Qualified Code(s): I10 - Essential (primary) hypertension (6) Coronary artery disease Current Visit: No Status: Chronic Qualifiers: Coronary Disease-Associated Artery/Lesion type: [place] artery [place] vs. transplanted heart: [place] heart Associated angina: without angina Qualified Code(s): I25.10 - Atherosclerotic heart disease of [place] coronary artery without angina pectoris - Plan Pending clinical improvement at this. Discharge Plan: Home Plan to discharge in: 48 Hours - Code Status/Comfort Care Code Status Assessed: Yes Critical Care: No
[2018-06-17] MEDS ORDERED: INFLUENZA VACCINE (for 3y+) 0.5 ML DOSE IMVAC ONE (14:00)
[2018-06-17] MEDS ORDERED: PNEUMOCOCCAL VACCINE 0.5 ML IMVAC ONE (14:00)
[2018-06-17] MEDS: FUROSEMIDE 20 MG/ 2ML VIAL IV SCH (17:54)
--- NOTE | 2018-06-17 19:22 | CON ---
A 62-year-old man. Reason For Consult: Cardiomyopathy, coronary heart disease, defibrillator. History Of Present Illness: Mr. Hadley came to the hospital on the . Apparently, there was gen eralized weakness, cough, fatigue. The patient told me for about a month. He told the ER doctors ab out a week. He has severe heart disease. He had bypass surgery in 2007, stents a few years later. He has a very depressed ejection fraction. He has a defibrillator. 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 We will try and interrogate it now. He is unable to provide any information about when it was last interrogated or when he last saw Dr. Mcgovern, Dr. Derian Mcgovern is his usual doctor. The patient compl ained to me of shortness of breath, shortness of breath is worse if he lies flat, shortness of breath with any minimal exertion. Denies having chest pain. He has underlying congestive heart failure, d iabetes, hypertension, renal disease, coronary heart disease, prostate problems. He has had a hernia repair, bypass surgery, stents, and a defibrillator. He is a very poor history relater. He has a p oor memory for any medical details. He is concerned that a kidney doctor he saw in the past has done experiments on him and hooked him up to a machine that hurt him. He is unable to say the name of [facility] kidney doctor. Allergies: HE REPORTS ALLERGIES TO PENICILLIN. Home Medications: Insulin, furosemide, atorvastatin, levothyroxine, isosorbide, hydralazine, labetal ol, clopidogrel, famotidine, carvedilol, and NovoLog insulin. Social History: He uses no tobacco, no alcohol, no illicit drugs. Physical Examination: Vital Signs: The patient is 5 feet 9 inches and 153 pounds. General: He is alert and oriented. Lungs: Clear. No crackles or wheeze. Heart: Laterally displaced diffuse apical impulse. Holosystolic murmur. Extremities: 1 to 2+ edema. : Mild edema of the scrotum. No penile edema. Laboratory Data: Reveals a creatinine of 3.2. Blood sugars are usually between 250 and 150. The tr oponin level is 0.05. N-terminal proBNP is 99,904, later it was 35,000. Impression And Plan: The patient has end-stage heart disease. His ejection fraction is in the 20s. He is not having angina. It seems like he has an exacerbation of a chronic condition with volume ov erload, so diuresis should help. His renal function is very poor. I am not sure if he is under the care of a ac/dc rewinder or not. We can check his defibrillator. His echocardiogram has been done and we have a baseline for what he looks like. I think with a little more diuresis, he will be back to baseline. There are not any things that would be likely to help him that are not already done except maybe a heart transplant and I think he would be an acceptable patient for heart transplant and Dr. Mcgovern has not apparently referred him to the transplant program. ANA/SAAD Voice ID: [id number] Report ID: [id number]
--- NOTE | 2018-06-17 20:26 | P.CNS ---
Date of Consult: 06/17/18 Reason for Consult: BRADFORD/ CKD Requesting Physician: Risa Rios Primary Care Provider: Dr. Rose Chief Complaint: Pleural effusion History of Present Illness: 62 yo BM HTN, CKD admitted to the hospital with malaise and weakness. Follows with Dr. Her as an outpt for CKD IV. Patient is a 62yo who was admitted to the hospital with generalized weakness. Patient is also developing worsening renal function. He is not a real good historian. He presented with generalized weakness as well. He has a history of renal insufficiency. He was admitted to the hospital for further evaluation. 20:56 This 62 yrs old Black Male presents to ER via Wheelchair with complaints of Weakness, nh Cough. 20:56 The patient presents to the emergency department with weakness of the entire body, nh generalized weakness. Onset: The symptoms/episode began/occurred 3 day(s) ago. Associated signs and symptoms: Pertinent positives: altered mental status. Severity of symptoms: At their worst the symptoms were moderate just prior to arrival , in the emergency department the symptoms are unchanged. The patient has not experienced similar symptoms in the past. The patient has not recently seen a physician. Patient also reports cough and shortness of breath. Allergies Penicillins Allergy (Verified 06/16/18 04:20) Hives Home medications list reviewed: Yes Home Medications: Atorvastatin Calcium [Lipitor*] 20 mg PO BEDTIME 12/19/15 Furosemide 40 mg PO DAILY 12/19/15 Insulin Detemir [Levemir] 10 units SQ BEDTIME 12/19/15 Carvedilol 3.125 mg PO BID 06/15/18 Clopidogrel Bisulfate [Plavix] 75 mg PO DAILY 06/15/18 Famotidine [Pepcid*] 20 mg PO BID 06/15/18 Hydralazine HCl [Apresoline] 50 mg PO TID 06/15/18 Insulin Aspart [Novolog] See Protocol SQ ACHS 06/15/18 Isosorbide Mononitrate [Isosorbide Mononitrate ER] 30 mg PO DAILY 06/15/18 Labetalol HCl [Trandate] 200 mg PO BID 06/15/18 Levothyroxine [Synthroid] 25 mcg PO [id number] 06/15/18 - Past Medical/Surgical History Diabetic: Yes -: [place] -: [place] -: HTN -: Diabetes -: Hepatitis-C -: Coronary artery bypass grafting x3 -: hernia repair - Family History Father Family History: Reviewed- Non-Contributory - Social History Smoking Status: Never smoker Alcohol use: No CD- Drugs: No Caffeine use: Yes Place of Residence: Home Review of Systems 10-point ROS is otherwise unremarkable General: Weakness, Malaise Respiratory: SOB with Excertion Physical Examination Temp Pulse Resp BP Pulse Ox 97.7 F 82 18 167/97 H 93 06/17/18 16:00 06/17/18 17:54 06/17/18 16:00 06/17/18 17:54 06/17/18 16:00 General: Oriented x3, Cooperative HEENT: Atraumatic, Mucous membr. moist/pink Neck: Supple, JVD distended Respiratory: Clear to auscultation bilaterally, Normal air movement Cardiovascular: No edema, Regular rate/rhythm, No rubs Gastrointestinal: Soft and benign, Non-distended Musculoskeletal: No clubbing, No contractures Integumentary: No rashes, No cyanosis Neurological: Normal speech Initial serum creatinine 3.2 Blood work reviewed in the chart. Imagings Data: EXAM DESCRIPTION: - CT CHEST,ABD,PELVIS W/O - 06/16/2018 1:[address] - CT CHEST,ABD,PELVIS W/O - 06/16/2018 1:29 pm CLINICAL HISTORY: Chest and abdomen pain. SOB, Abd PAIN and AMS COMPARISON: No comparisons TECHNIQUE: A limited noncontrast study is submitted. All CT scans are performed using dose optimization technique as appropriate and may include automated exposure control or mA/KV adjustment according to patient size. FINDINGS: Atelectasis is present in both lung bases.Moderate bilateral pleural effusions are present, larger on the right and showing lobulated contour likely indicating loculation.Calcified mediastinal and hilar adenopathy seen most compatible with prior granulomatous infection.The heart is normal in size with dual lead pacer device present. The liver, spleen, pancreas, adrenal glands and kidneys are within normal limits. Mild ascites is present. Diffuse edema throughout the soft tissues most compatible with anasarca. No bowel obstruction or free intraperitoneal air. No evidence of intra- abdominal abscess. Normal appendix. Atherosclerosis is present of the aorta. No pathologic lymphadenopathy in the abdomen or pelvis. No fracture seen. IMPRESSION: A prominent fluid retention pattern is seen with anasarca, mild ascites and bilateral moderate pleural effusions, larger on the right. Conclusions/Impression: BRADFORD likely CRS. CKD IV with proteinuria. HTN with CKD/ CHF. DM II with CKD. Systolic CHF, chronic. LVEF 26%. Severe Pulmonary HTN. Moderate TR. HCV? P/ Continue current POC and Medications. Agree with gentle diuresis but will need to monitor closely due to a narrow window of euvolemia. May be a candidate for Entresto. Titrate Coreg as needed. No NSAIDs. AM labs. Daily weight. Thank you kindly for the consultation.
[2018-06-17] MEDS: CARVEDILOL 6.25 MG TAB PO SCH (20:36)
[2018-06-17] MEDS: ATORVASTATIN 20 MG TAB PO SCH (20:36)
[2018-06-17 23:58] VITALS: O2SAT 95
[2018-06-18 02:31] VITALS: BMI 22.6
[2018-06-18] MEDS: HYDRALAZINE HCL 20 MG/ML VIAL IV PRN ×2 (05:05→12:59)
[2018-06-18] MEDS: LEVOTHYROXINE SOD 0.025 MG TAB PO SCH (05:05)
[2018-06-18 05:51] LABS: Absolute Monocytes 0.5 K/uL (0.1-1.3); Absolute Neutrophil 5.2 K/uL (1.8-8.0); Basophils % 1.1 % (0-1.3); Eosinophils % 0.5 % (0-4.4); Hematocrit 43.7 % (39.6-49.0); Lymphocytes % 14.6 % (15.3-44.8); MCH 29.5 pg (27.0-35.0); MCV 91.9 fL (80-100); MPV 9.9 fL (7.6-11.3); Monocytes % 6.8 % (3.3-12.3); RBC Red Blood Cell Count 4.76 M/uL (4.33-5.43)
[2018-06-18 05:52] LABS: Potassium 4.3 mmol/L (3.5-5.1); Uric Acid 10.1 mg/dL (3.5-7.2)
[2018-06-18 08:15] VITALS: BP 182/86; TEMP 96.3
[2018-06-18] MEDS: VITAMIN D 5,000 UNIT CAP PO SCH (08:32)
[2018-06-18] MEDS: FAMOTIDINE 20 MG TAB PO SCH (08:32)
[2018-06-18] MEDS: CLOPIDOGREL 75 MG TABLET PO SCH (08:32)
[2018-06-18] MEDS: HYDRALAZINE HCL 25 MG TABLET PO SCH ×2 (08:32→14:58)
[2018-06-18] MEDS: CARVEDILOL 6.25 MG TAB PO SCH (08:32)
[2018-06-18] MEDS: FUROSEMIDE 20 MG/ 2ML VIAL IV SCH (08:33)
[2018-06-18] MEDS: ISOSORBIDE MONO SR 30 MG TAB PO SCH (08:33)
--- NOTE | 2018-06-18 14:07 | P.DS ---
Admission Date: 06/15/18 Discharge Date: 06/18/18 Primary Care Provider: Dr. Rose([place], [place]); Card-Dr. Mcgovern([place]); Neph: Dr. Dong Disposition: DC HOME/HOME HEALTH CARE Discharge Condition: GOOD Reason for Admission: Pleural effusion Consultations: Nephrology-Dr. Dong Cardiology-Dr. Ramires/Dr. Hook Pulmonary-Dr. Heath Procedures: CXR: COMPARISON: CT chest same date TECHNIQUE: Right and left lateral decubitus films were obtained. FINDINGS: Moderate bilateral pleural effusions are identifiable. Both pleural effusions are seen to layer. Layering is more defined on the right. The significant extent of loculation is not identifiable. IMPRESSION: Moderate-sized bilateral layering pleural effusions. ECHO: Ejection fraction 26% LEFT VENTRICULAR WALL MOTION: SEVERE GLOBAL HYPOKINESIS. DOPPLER/COLOR FLOW: MOD TRICUSPID REGURGITATION. ESTIMATED RIGHT VENTRICULAR SYSTOLIC PRESSURE 68mmHg (SEVERE PULMONARY HYPERTENSION). MILD AORTIC AND MITRAL REGURGITATION. COMMENTS: SEVERELY DEPRESSED LEFT VENTRICULAR EJECTION FRACTION. DILATED LEFT AND RIGHT ATRIUM. DEFIBRILLATOR CATHETER IN RIGHT VENTRICULAR APEX. MODERATE TRICUSPID REGURGITATION. MILD AORTIC AND MITRAL REGURGITATION. SEVERE PULMONARY HYPERTENSION. Chest US: COMPARISON: None. FINDINGS: Bilateral chest sonography performed. Moderate pleural effusions are seen in each lower lung base. No septation or thickened rind identified. No significant loculation identifiable. IMPRESSION: Moderate bilateral pleural effusions without evidence for loculation. CT head: COMPARISON: November 2016 TECHNIQUE: Computed axial tomography of the head was obtained. IV contrast was not requested. All CT scans are performed using dose optimization technique as appropriate and may include automated exposure control or mA/KV adjustment according to patient size. FINDINGS: An intracranial bleed is not seen . The ventricles are normal in caliber. No extra-axial fluid collection is noted. Mild low-density areas within periventricular, deep and subcortical white matter likely represent ischemic changes secondary to small vessel disease. Mild opacification right right maxillary sinus IMPRESSION: No acute intracranial abnormality is seen. Medical problem list: Acute on chronic systolic congestive heart failure with ejection fraction of 25 % with noted end-stage heart disease Severe pulmonary hypertension Chronic bilateral pleural effusion without loculation Acute on chronic renal disease stage IV Hypertension Hyperlipidemia GERD Diabetes mellitus type 2, insulin dependent CAD History of defibrillator in place Brief History of Present Illness: 62-year-old male presented emergency room with increasing shortness of breath fatigue. Patient found to be in acute with chronic congestive heart failure along with acute on chronic renal disease. Patient admitted for treatment. Hospital Course: Patient presented with shortness of breath and weakness secondary to CHF and chronic renal disease. Patient also found to have bilateral pleural effusions seizure likely chronic in nature. No loculations were identified. Patient is seen by nephrology, cardiology, and pulmonology. Medications were adjusted. Patient diuresed. Improvement noted. Pulmonology recommended no need for thoracentesis at this time. Cardiology had echo done showing ejection fraction of 26% and severe pulmonary hypertension. His defibrillator was interrogated. Cardiology recommends that the patient follow up with his current director decision support and consider heart transplant in the future due to his end-stage heart disease. At discharge patient did not qualify for oxygen. At discharge Lasix will be increased to 40 mg 1 pill twice daily. He will continue with a 1500 cc per day fluid restriction and low-salt diet. Patient will need to monitor his weight daily. If his weight increases by more than 5 lb he is to contact his PCP or nephrology to further address. Patient will need to limit his activities due to his chronic heart and renal disease. Recommend no driving due to his end- stage heart disease. Recommendations for the patient a follow up with his PCP and nephrology in 1 week to monitor his progress. Recommendation to recheck lab -BMP in 1 week. Prior to discharge home health and physical therapy will be arranged for education on CHF, chronic renal disease and pleural effusion. Recommendation to recheck chest x-ray in 2-4 weeks to monitor his progress. Patient with acute on chronic congestive heart failure with ejection fraction of 26%. Patient will continue with above recommendation. Lasix increased to 40 mg 1 pill twice daily. Patient will continue with fluid restriction as recommended above. Recommendation follow up with cardiology as directed. Patient has acute on chronic renal disease. This remained stable during the course of his stay. Patient seen and evaluated by nephrology. Patient with stage IV disease to recheck lab-BMP in 1 week to monitor his progress. At discharge he will continue with vitamin-D 3 5000 units once daily. Patient has hypertension. Medications adjusted during his stay. At discharge he will continue with hydralazine 50 mg 1 pill 3 times a day. Labetalol discontinued. This was replaced with carvedilol. At discharge he will continue with carvedilol 6.25 mg 1 pill twice daily. Recommendation is to maintain blood pressures less 150/80. Further adjustment can be done by his PCP. Patient has hyperlipidemia. At discharge he will continue with Lipitor 20 mg daily. Patient has CAD. Patient will continue with Plavix 75 mg daily and isosorbide mononitrate ER 30 mg daily. Patient has hypothyroidism. Patient will continue with Levoxyl 25 mcg daily. Patient has diabetes mellitus type 2. He is insulin dependent. At discharge she will continue with Levemir 10 units subcu at bedtime and NovoLog sliding scale. Recommendation is to maintain blood sugars less 140 fasting and less than 200 after meals. Further adjustment can be done by his PCP. Patient with GERD. Patient will continue with Pepcid 20 mg 1 pill twice daily. Vital Signs/Physical Exam: Temp Pulse Resp BP Pulse Ox 96.3 F L 87 20 182/86 H 93 06/18/18 08:00 06/18/18 08:33 06/18/18 08:00 06/18/18 08:33 06/18/18 08:00 General: Alert, In no apparent distress, Oriented x3, Cooperative HEENT: Atraumatic Neck: Supple Respiratory: Other (Good air movement bilateral. Slightly decreased bilaterally to the bases) Cardiovascular: Normal pulses, Regular rate/rhythm Gastrointestinal: Normal bowel sounds, Soft and benign, Non-distended, No tenderness, No masses, No rebound, No guarding Musculoskeletal: No erythema, No tenderness, No warmth Integumentary: No tenderness/swelling, No erythema, No warmth, No cyanosis Neurological: Normal speech, Normal strength at 5/5 x4 extr, Normal tone, Normal affect Laboratory Data at Discharge: WBC 6.8 K/uL (4.3-10.9) D 06/18/18 05:22 Hgb 14.0 g/dL (13.6-17.9) 06/18/18 05:22 Hct 43.7 % (39.6-49.0) 06/18/18 05:22 Plt Count 210 K/uL (152-406) 06/18/18 05:22 PT 13.9 SECONDS (9.5-12.5) H 06/15/18 18:45 INR 1.18 06/15/18 18:45 Sodium 143 mmol/L (136-145) 06/18/18 05:22 Potassium 4.3 mmol/L (3.5-5.1) 06/18/18 05:22 BUN 62 mg/dL (7-18) H 06/18/18 05:22 Creatinine 3.00 mg/dL (0.55-1.3) H 06/18/18 05:22 Glucose 146 mg/dL (74-106) H 06/18/18 05:22 Uric Acid 10.1 mg/dL (3.5-7.2) H 06/18/18 05:22 Phosphorus 4.0 mg/dL (2.5-4.9) 06/17/18 05:10 Magnesium 2.3 mg/dL (1.8-2.4) 06/15/18 18:45 Total Bilirubin 1.1 mg/dL (0.2-1.0) H 06/17/18 05:10 AST 21 U/L (15-37) 06/17/18 05:10 ALT 22 U/L (12-78) 06/17/18 05:10 Alkaline Phosphatase 123 U/L (45-117) H 06/17/18 05:10 Home Medications: Atorvastatin Calcium [Lipitor*] 20 mg PO BEDTIME 12/19/15 Insulin Detemir [Levemir] 10 units SQ BEDTIME 12/19/15 Clopidogrel Bisulfate [Plavix*] 75 mg PO DAILY 06/15/18 Famotidine [Pepcid*] 20 mg PO BID 06/15/18 Hydralazine HCl [Apresoline] 50 mg PO TID 06/15/18 Insulin Aspart [Novolog] See Protocol SQ ACHS 06/15/18 Isosorbide Mononitrate [Isosorbide Mononitrate ER] 30 mg PO DAILY 06/15/18 Levothyroxine [Synthroid*] 25 mcg PO [id number] 06/15/18 Carvedilol [Coreg*] 6.25 mg PO BID #60 tab 06/18/18 Cholecalciferol (Vitamin D3) [Vitamin D 5,000 IU Cap*] 5,000 unit PO DAILY #30 cap 06/18/18 Furosemide [Lasix*] 40 mg PO BIDL #60 tab 06/18/18 New Medications: Carvedilol [Coreg*] 6.25 mg PO BID #60 tab Cholecalciferol (Vitamin D3) [Vitamin D 5,000 IU Cap*] 5,000 unit PO DAILY #30 cap Furosemide [Lasix*] 40 mg PO BIDL #60 tab Patient Discharge Instructions: 1. Patient will need a follow up his PCP in 1 week to follow up this hospitalization. 2. Patient presented with shortness of breath and weakness secondary to CHF and chronic renal disease. Patient also found to have bilateral pleural effusions seizure likely chronic in nature. No loculations were identified. Patient is seen by nephrology, cardiology, and pulmonology. Medications were adjusted. Patient diuresed. Improvement noted. Pulmonology recommended no need for thoracentesis at this time. Cardiology had echo done showing ejection fraction of 26% and severe pulmonary hypertension. His defibrillator was interrogated. Cardiology recommends that the patient follow up with his current director decision support and consider heart transplant in the future due to his end-stage heart disease. At discharge patient did not qualify for oxygen. At discharge Lasix will be increased to 40 mg 1 pill twice daily. He will continue with a 1500 cc per day fluid restriction and low-salt diet. Patient will need to monitor his weight daily. If his weight increases by more than 5 lb he is to contact his PCP or nephrology to further address. Patient will need to limit his activities due to his chronic heart and renal disease. Recommend no driving due to his end-stage heart disease. Recommendations for the patient a follow up with his PCP and nephrology in 1 week to monitor his progress. Recommendation to recheck lab-BMP in 1 week. Prior to discharge home health and physical therapy will be arranged for education on CHF, chronic renal disease and pleural effusion. Recommendation to recheck chest x-ray in 2-4 weeks to monitor his progress. 3. Patient with acute on chronic congestive heart failure with ejection fraction of 26%. Patient will continue with above recommendation. Lasix increased to 40 mg 1 pill twice daily. Patient will continue with fluid restriction as recommended above. Recommendation follow up with cardiology as directed. 4. Patient has acute on chronic renal disease. This remained stable during the course of his stay. Patient seen and evaluated by nephrology. Patient with stage IV disease to recheck lab-BMP in 1 week to monitor his progress. At discharge he will continue with vitamin-D 3 5000 units once daily. 5. Patient has hypertension. Medications adjusted during his stay. At discharge he will continue with hydralazine 50 mg 1 pill 3 times a day. Labetalol discontinued. This was replaced with carvedilol. At discharge he will continue with carvedilol 6.25 mg 1 pill twice daily. Recommendation is to maintain blood pressures less 150/ 80. Further adjustment can be done by his PCP. 6. Patient has hyperlipidemia. At discharge he will continue with Lipitor 20 mg daily. 7. Patient has CAD. Patient will continue with Plavix 75 mg daily and isosorbide mononitrate ER 30 mg daily. 8. Patient has hypothyroidism. Patient will continue with Levoxyl 25 mcg daily. 9. Patient has diabetes mellitus type 2. He is insulin dependent. At discharge she will continue with Levemir 10 units subcu at bedtime and NovoLog sliding scale. Recommendation is to maintain blood sugars less 140 fasting and less than 200 after meals. Further adjustment can be done by his PCP. 10. Patient with GERD. Patient will continue with Pepcid 20 mg 1 pill twice daily. Diet: AHA Activity: Fall precautions Followup: XIOMARA ESQUIVEL [OUTSIDE PHYSICIAN] - Derian Mcgovern MD [OUTSIDE PHYSICIAN] - Time spent managing pt's care (in minutes): 55
[2018-06-18] MEDS ORDERED: FUROSEMIDE 40 MG TABLET PO SCH (17:00)
--- NOTE | 2018-06-19 12:43 | PN ---
Date of Progress Note: 06/18/2018 Mr. Hadley was seen by Dr. Hook. He has a history of AICD, CABG, cardiomyopathy, stent, diabetes , hypertension, CHF, and chronic renal disease. He also has end-stage heart disease with an ejection fraction of 20%. Diuresis have improved his symptoms. He remained in sinus rhythm. AICD that was checked yesterday was within normal limit. No AICD discharges. Normal function. Dr. Hook had men tioned transplant as a possibility. We will leave that up to Dr. Mcgovern. The patient can go home whe never it is okay with Dr. Rios and he will follow up with Dr. Mcgovern in the near future. NIDIA/SAAD Voice ID: [id number] Report ID: [id number]
[2018-06-19 17:38] LABS: Hepatitis C Virus RNA (PCR)log 6.79 log IU/mL
== END 2018-06-18 16:09 | disposition home health service (06) | DRG 291 ==
LOC: ER 17:28 → 4TH 21:30
PROVIDERS: ADMIT Hospitalist; ATTEND Family Medicine
DX: I13.0 Hypertensive heart and chronic kidney disease with heart failure and stage 1 through stage 4 chronic kidney disease, or unspecified chronic kidney disease (principal); I50.23 Acute on chronic systolic (congestive) heart failure; J90 Pleural effusion, not elsewhere classified; N18.4 Chronic kidney disease, stage 4 (severe); N17.9 Acute kidney failure, unspecified; E11.22 Type 2 diabetes mellitus with diabetic chronic kidney disease; Z79.4 Long term (current) use of insulin; I27.20 Pulmonary hypertension, unspecified; K21.9 Gastro-esophageal reflux disease without esophagitis; I25.10 Atherosclerotic heart disease of native coronary artery without angina pectoris; Z95.810 Presence of automatic (implantable) cardiac defibrillator; Z95.1 Presence of aortocoronary bypass graft; B19.20 Unspecified viral hepatitis C without hepatic coma; I25.2 Old myocardial infarction; Z88.0 Allergy status to penicillin; E78.5 Hyperlipidemia, unspecified
CPT/HCPCS: 36415; 70450; 71045; 71046; 71250; 74176; 76604; 80048; 80053; 80076; 81001; 81003; 81015; 82043; 82140; 82570; 82962; 83036; 83605; 83735; 83880; 84100; 84484; 84550; 85025; 85610; 86160; 86335; 86430; 87040; 87070; 87205; 87522; 90670; 93005; 93306; 96365; 96366; 96368; 99285; G0008; G0009; J0360; J0456; J0696; J1940; Q2035

== ENCOUNTER 2021-12-30 21:10 | Emergency (ER) | payer BC, SELFPAY ==
--- OUTSIDE RECORDS SUMMARY | 2021-12-30 21:28 | XMS REPORT | Continuity of Care Document ---
:1955 Author Organization [facility] t Address [address] [place] [address] Care Team Providers Name Role Phone LION DESIR Primary Care Physician Unavailable Alisa VIVEROS Attending Clinician Unavailable OLY Attending Clinician Unavailable MD KEEGAN WATTS Attending Clinician Unavailable MD [place] HIGGINBOTHAM Attending Clinician Unavailable Dariel SINGH Attending Clinician Unavailable Jarocho DOTSON Attending Clinician Kitty DOTSON Attending Clinician KITTY Attending Clinician Unavailable JOVAN Attending Clinician Unavailable NOA Attending Clinician Unavailable YUNG Attending Clinician Unavailable Alexandre MICHELLE Attending Clinician Unavailable Johnathan Attending Clinician Unavailable KARINA MICHELLE Attending Clinician Unavailable TRAVIS Attending Clinician Unavailable MD ZOE LATHAM Attending Clinician Unavailable MD TRAVIS Attending Clinician Unavailable NIKKI Attending Clinician Unavailable Brian Attending Clinician Unavailable Pob, Lab Main Attending Clinician Unavailable Arden DOTSON Attending Clinician ARDEN Attending Clinician Unavailable Doctor Unassigned, Name Attending Clinician Unavailable MARGARITA Attending Clinician Unavailable Divine DOTSON Attending Clinician 3 Attending Clinician Unavailable ERICA LATHAM Attending Clinician Unavailable SUSIE MCGOVERN M.D. Attending Clinician Unavailable Alisa VIVEROS Admitting Clinician Unavailable MAC Admitting Clinician Unavailable Kitty DOTSON Admitting Clinician KITTY Admitting Clinician Unavailable JOVAN Admitting Clinician Unavailable FLOR Admitting Clinician Unavailable Johnathan Admitting Clinician Unavailable KARINA MICHELLE Admitting Clinician Unavailable NOA Admitting Clinician Unavailable MD ZOE LATHAM Admitting Clinician Unavailable TRAVIS Admitting Clinician Unavailable MD Dev JORDAN Admitting Clinician Unavailable Brian Admitting Clinician Unavailable KRISTI SONI Admitting Clinician Unavailable SUSIE MCGOVERN M.D. Admitting Clinician Unavailable Payers Payer Name Policy Type Policy Number Effective Date Expiration Date S ource HIM BCBS BLUE [id number] 2018 ADVANTAGE HMO 00:00:00 WELLMED/AARP [id number] 2019 MEDICARE ADVANTAGE 00:00:00 BCBS ADV HMO [id number] 2016 EXCHANGE 00:00:00 WELLMED AARP [facility] [id number] 2019 ADVANTAGE HMO -[facility] 00:00:00 BLUE [facility] [id number] 2016 O-MARKETPLACE - 00:00:00 BCBS [place] [employer] [id number] 2014 00:00:00 WELLCARE MEDICARE [id number] ADVANTAGE O MEDICARE PART A \\T\\ [id number] B - [facility]ICARE [facility] [id number] 2021 00:00:00 [facility] - AARP - [id number] MEDICARE SOLUTIONS - MEDICARE COMPLETE (MEDICARE REPLACEMENT PPO) Problems Condition Condition Condition Status Onset Resolution Last Treating Co mments Source Name Details Category Date Date Treatment Clinician Date Acute Acute Disease Active Univers alteration alteration 6-06 it [place] of in mental [place] 00 [place] Rigors Rigors Disease Active Univers 5- ity of 00:00: [place] 00 Medical Branch PAD PAD Disease Active Univers (periphera (periphera 12-06 it y of l artery l artery 00:00: [place] disease) disease) 00 Medica l Branch Ascites Ascites Disease Active Univers 2- ity of 00:00: [place] 00 Medical Branch Coronary Coronary Disease Active Unive rs artery artery 08-08 ity of disease disease 00:00: [place] involving involving 00 Medi arlette tribe tribe Branch coronary coronary artery of artery of tribe tribe heart heart without without angina angina pectoris pectoris Acute on Acute on Disease Active Unive rs chronic chronic 1 ity of systolic systolic 00:00: [place] and and 00 Medical diastolic diastolic Bran ch heart heart failure, failure, NYHA class NYHA class 3 3 Elevated Elevated Disease Active Unive rs brain brain 1 ity of natriureti natriureti [place] c peptide c peptide 00 Medi arlette (BNP) (BNP) Branch level level Acute Acute Disease Active Univers renal renal 1 ity of failure failure 00:00: [place] superimpos superimpos 00 Me dical ed on ed on Branch 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 Dyslipidem Dyslipidem Disease Active U nivers ia ia 1 ity of 00:00: [place] 00 Medical Branch Coronary Coronary Disease Active Unive rs artery artery 1 ity of disease disease 00:00: [place] involving involving 00 Medi arlette tribe tribe Branch coronary coronary artery of artery of tribe tribe heart heart without without angina angina pectoris pectoris Acute CHF Acute CHF Disease Active Uni vers 1-30 ity of 00:00: [place] 00 Medical Branch Essential Essential Disease Active 2006-07 Uni vers hypertensi hypertensi 2-10 it y of on on 00:00: [place] 00 Medical Branch 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 ICD10 Diagnosis Term Commercial Stripper Utility Other Other Disease Active 2006-07 Univers specified specified 2-10 ity of forms of forms of 00:00: [place] chronic chronic 00 Medical ischemic ischemic Branch heart heart disease disease Left heart Left heart Disease Active 2006-07 U nivers failure failure 2-10 ity of 00:00: [place] 00 Medical Branch Dyspnea Dyspnea Disease Active 2006-07 Overview: Univ ers and and 2-08 Formattin ity of respirator respirator 00:00: g of this [place] y y 00 note Medical abnormalit abnormalit might be Branch y y different from the original. ICD10 Diagnosis Term Commercial Stripper Utility No known No known Disease [facility] active active [place] problems problems of Medicin e Allergies, Adverse Reactions, Alerts Allergy Allergy Status Severity Reaction(s) Onset Inactive Treating Comm ents Source Name Type Date Date Clinician PENICILL Allergy Active High 2019-[address] [facility] LEVOFLOX Allergy Active [facility] Penicill Propensi Active [facility] ins ty to [address] [place] adverse 00:00: of reaction 00 Medicin s to e drug NO KNOWN Drug Active Univers ALLERGIE Class ity of S [facility] NO KNOWN Allergy Active [facility] ALLERGIE S Social History Social Habit Start Date Stop Date Quantity Comments Source History [facility] o f Alcohol Frequency [place] M edical [facility] History [facility] o f Alcohol Std Drinks [place] [facility] History [facility] o f Alcohol Binge [place] Medic al Branch History of tobacco Cigarette Smoker University of use [facility] Sex Assigned At [facility] Co llege of Medicine Exposure to 2021-11-26 2021-12-06 Not sure University of SARS-CoV-2 (event) 00:00:00 09:22:00 [facility] Alcohol intake 2019-08-05 2019-08-05 Current [facility] Col lege of 00:00:00 00:00:00 non-drinker of Medicine alcohol (finding) Cigarettes smoked 2018-08-07 2018-08-07 Univers ity of current (pack per 00:00:00 00:00:00 ) - Reported Branch Cigarette 2018-08-07 2018-08-07 University of pack-years 00:00:00 00:00:00 [facility] Tobacco Comment 2007-06-15 2007-06-15 Quit 1990 Universit y of 00:00:00 00:00:00 [facility] Alcohol Comment 2007-06-15 2007-06-15 2 beers daily Univer sity of 00:00:00 00:00:00 [facility] Smoking Status Start Date Stop Date Source Never smoker [facility] o f Medicine Former smoker 2018-08-07 00:00:00 2018-08-07 00:00:00 Universi ty of [facility] Medications Ordered Filled Start Stop Current Ordering Indication Dosage Frequency Signature Comments Components Source Medication Medication Date Date Medication? Clinician (SIG) Name Name clopidogrel Yes 75mg Take 75 mg Univers 75 mg 6-07 by mouth ity of tablet 17:18: daily. [address] clopidogrel 0 Yes 75mg Take 75 mg Univers 75 mg 6-07 by mouth ity of tablet 17:18: daily. [address] carvedilol 0 2021- No 6.25mg Take 6.25 Univers 6.25 mg 6-07 06-07 mg by ity of tablet 14:19: 00:00 mouth 2 [place] 31 :00 (two) Medical times Branch daily with meals. hydralAZINE 2021- No 100mg Take 100 Univers 100 mg 6-07 06-07 mg by ity of tablet 13:57: 00:00 mouth [place] 18 :00 every 12 Medical (twelve) Branch hours. isosorbide 2021- No 30mg Take 30 mg Univers dinitrate 6-07 06-07 by mouth ity o f 30 mg 13:57: 00:00 daily. [place] tablet 18 :00 [facility] Branch isosorbide 2022-0 Yes [id number] 30mg Take 1 Univers mononitrate 6-07 [id number] tablet by i ty of 30 mg 24 hr 00:00: mouth [place] tablet 00 daily. Medical Branch lactulose 2021-0 Yes [id number] 15mL Take 15 mL Univers 10 gram/15 6-07 [id number] by mouth ity of mL solution 00:00: daily. [place] levothyroxi 2021-0 Yes [id number] 25ug Take 1 Univers ne 25 mcg 6- 855751 tablet by ity of tablet 00:00: mouth [place] 00 every Medical morning. Branch rifAXIMin 2021-0 Yes [id number] 550mg Take 1 Univers 550 mg 6- 000436 tablet by ity of tablet 00:00: mouth 2 [place] 00 (two) Medical times Branch daily. aspirin 81 2021-0 Yes [id number] 81mg Take 1 Univers mg chewable 6- 313324 tablet by i ty of tablet 00:00: mouth [place] 00 daily. Medical Branch isosorbide 2021-0 Yes [id number] 30mg Take 1 Univers mononitrate 6- [id number] tablet by i ty of 30 mg 24 hr 00:00: mouth [place] tablet 00 daily. Medical Branch lactulose 2021-0 Yes [id number] 15mL Take 15 mL Univers 10 gram/15 - 038935 by mouth ity of mL solution 00:00: daily. [place] levothyroxi 2021-0 Yes [id number] 25ug Take 1 Univers ne 25 mcg 6- 712728 tablet by ity of tablet 00:00: mouth [place] 00 every Medical morning. Branch rifAXIMin 2021-0 Yes [id number] 550mg Take 1 Univers 550 mg 6- [id number] tablet by ity of tablet 00:00: mouth 2 [place] (two) Medical times Branch daily. aspirin 81 2021-0 Yes [id number] 81mg Take 1 Univers mg chewable 6- 349792 tablet by i ty of tablet 00:00: mouth [place] 00 daily. Medical Branch NaCl 0.9% 2021- No 5mL 5 mL, Slow U nivers (NS) 12-12 IV Push, ity of injection 5 19:45: 23:28 ONCE, 1 [place] mL 00 :00 dose, On Medical 12/12/21 Branch at 1445, Routine heparin Yes 2000U PRN - SEE Univ ers 1,000 06 INSTRUCTIO ity of unit/mL 19:42: NS, [place] injection 43 Starting Medica l 2,000 Units on Mon Branch 12/12/21 at 1442, Until Discontinu ed, Routine
For Priming of Ports:&nbs p; &n bsp; After initial saline flush, prime each port with heparin according to the priming volume listed on each catheter port for catheter lock.
famotidine Yes 20mg 20 mg, Unive rs (PEPCID AC) 12-11 Oral, Q ity o f tablet 20 14:00: OTHERDAY, [place] mg 00 First dose Medical (after Branch last modificati on) on Sun12/11/21 at 0900, Until Discontinu ed, Routine FENTanyl PF 2021- No 25ug 25 mcg, Un alisha (SUBLIMAZE 12-09 Slow IV ity o f (PF)) 22:26: 15:21 Push, [place] injection 29 :54 Q6HPRN, Medical 25 mcg Starting Branch on Sun12/09/21 at 1726, Until Sun12/12/21 at 1021, Routine, Pain (scale 7-10) heparin Yes 2000U PRN - SEE [facility] ers 1,000 6-03 INSTRUCTIO ity of unit/mL 13:07: NS, [place] injection 07 Starting Medica l 2,000 Units on Sun Branch 12/09/21 at 0807, Until Discontinu ed, Routine
For Priming of Ports:&nbs p; &n bsp; After initial saline flush, prime each port with heparin according to the priming volume listed on each catheter port for catheter lock.
heparin Yes 2000U PRN - SEE [facility] ers 1,000 6-03 INSTRUCTIO ity of unit/mL 12:27: NS, [place] injection 24 Starting Medica l 2,000 Units on Sun Branch 12/09/21 at 0727, Until Discontinu ed, Routine
For Priming of Ports:&nbs p; &n bsp; After initial saline flush, prime each port with heparin according to the priming volume listed on each catheter port for catheter lock.
iopamidol 2021- No [id number] 100mL 100 mL, Univers (ISOVUE 12-08 9103 Intravenou ity o f 370-500 mL) 22:45: 21:36 s, ONCE, 1 [place] injection 00 :00 dose, On Medica l 100 mL [place] 12/08/21 Branch at 1745, Routine sulfur 2021- No [id number] 5mL 5 mL, Un alisha hexafluorid 12-0803 Intravenou i ty of e microsphr 20:00: 20:00 s, ONCE, 1 [place] (LUMASON) 00 :00 dose, On Medica l injection 5 [place] 12/08/21 Br anch mL at 1500, Routine
film crew member approving Restricted medication : GLYNN MCNEALvastati Yes 10mg 10 mg, Univ ers n (LIPITOR) 12-08 Oral, QHS, it y of tablet 10 02:00: First dose [place] mg 00 on Sun Medical 12/07/21 at Branch 2100, Until Discontinu ed, Routine NaCl 0.9% 2021- No 5mL 5 mL, Slow U nivers (NS) 12-07 IV Push, ity of injection 5 19:15: 23:10 ONCE, 1 [place] mL 00 :00 dose, On Sun12/07/21 Branch at 1415, Routine heparin Yes 2000U PRN - SEE Univ ers 1,000 12-07 INSTRUCTIO ity of unit/mL 19:02: NS, [place] injection 23 Starting Medica l 2,000 Units on Sun Branch 12/07/21 at 1402, Until Discontinu ed, Routine
For Priming of Ports:&nbs p; &n bsp; After initial saline flush, prime each port with heparin according to the priming volume listed on each catheter port for catheter lock.
lactulose Yes 15mL 15 mL, Univer s (CEPHULAC) 12-07 Oral, ity of solution 15 14:00: DAILY, [place] mL 00 First dose Medical on Sun12/07/21 at 0900, Until Discontinu ed, Routine isosorbide 0 Yes 30mg 30 mg, Unive rs mononitrate 12-07 Oral, ity of (IMDUR) 24 14:00: DAILY, [place] hr tablet 00 First dose Medi arlette 30 mg on Sun12/07/21 at 0900, Until Discontinu ed, Routine clopidogreL Yes 75mg 75 mg, [facility] ers (PLAVIX) 75 12-07 Oral, ity of mg tablet 14:00: DAILY, [place] 75 mg 00 First dose Medical on Sun12/07/21 at 0900, Until Discontinu ed, Routine aspirin Yes 81mg 81 mg, Univers chewable 12-07 Oral, ity of tablet 81 14:00: DAILY, [place] mg 00 First dose Medical on Sun12/07/21 at 0900, Until Discontinu ed, Routine famotidine 2021- No 10mg 10 mg, [facility] ers (PEPCID AC) 12-0704 Oral, ity of tablet 10 14:00: 13:37 DAILY, [place] mg 00 :55 First dose Medical (after Branch last modificati on) on Sun12/07/21 at 0900, Until Discontinu ed, Routine rifAXIMin Yes 550mg 550 mg, [facility] ers (XIFAXAN) 12-07 Oral, BID, ity of tablet 550 13:00: First dose [place] mg 00 on Sun Medical 12/07/21 at Branch 0800, Until Discontinu ed, Routine
Reason for Anti-Infec tive: Empiric Therapy for Suspected Infection< br>Empiric Therapy Site: Abdominal< br>Duratio n of therapy: 7 days levothyroxi Yes 25ug 25 mcg, Uni vers ne 12-07 Oral, ity of (SYNTHROID) 11:00: QAM-0600, [place] tablet 25 00 First dose Medi arlette mcg on Sun Branch 12/07/21 at 0600, Until Discontinu ed, Routine NaCl 0.9% 202- No 500mL at 999 [facility] ers (NS) bolus 12-07 mL/hr, 500 it y of infusion 09:45: 09:16 mL, IV [place] 500 mL 00 :00 Piggyback, Medical ONCE, 1 Branch dose, On Sun12/07/21 at 0445, STAT HYDROcodone Yes 1{tbl} 1 tablet, Univers -acetaminop 12-07 Oral, ity of hen (NORCO 05:44: Q6HPRN, [place] 5) 5-325 mg 03 Starting Medi arlette tablet 1 on Sun Branch tablet 12/07/21 at 0044, Until Discontinu ed, Routine, Pain (scale 4-6) carvediloL 2021- No 6.25mg 6.25 mg, Univers (COREG) 12-07 0606 Oral, BID ity of tablet 6.25 04:00: 15:11 MEALS, [place] mg 00 :44 First dose Medical on Sun12/06/21 at 2300, Until Discontinu ed, Routine PANTOPRAZOL 2021- No 40mg Take 40 mg Univers E 40 MG 12-07 by mouth ity of IVPB CNR 03:43: 00:00 daily. [place] 04 :00 Medical Branch heparin Yes 5000U 5,000 Univers (porcine) 12-07 Units, ity of injection 01:00: [place]cut[place]o [place] 5,000 Units 00 us, Q12H, Med ical First dose Branch on Sun12/06/21 at 2000, Until Discontinu ed, Routine acetaminoph Yes 650mg 650 mg, Un alisha en 12-07 Oral, ity of (TYLENOL) 00:30: Q6HPRN, [place] tablet 650 34 Starting Medic al mg on Sun12/06/21 at 1930, Until Discontinu ed, Routine, Pain (scale 1-3) insulin 2019-0 Yes Inject Anuj aspart 08-05 into the College (NOVOLOG) 20:07: skin. of 100 UNIT/ML 49 Medicin injection e metoprolol 2019-0 Yes 1{tbl} Take 1 Tab [facility] (LOPRESSOR) 08-05 by mouth [place] e[place] 25 MG 20:06: two times of tablet 02 daily. Medicin e ribavirin 2019-0 2020- No 2{tbl} Take 2 [place] [facility]ani (RIBASPHERE -05 08- Tabs by James ege ) 200 MG 20:06: 00:00 mouth two of tablet 02 :00 times Medicin daily. e spironolact 2020-0 Yes 1{tbl} Take 1 Tab [facility] one 1-28 by mouth College (ALDACTONE) 20:02: daily. of 25 MG 52 Medicin tablet e Aspirin 81 2019-0 Yes 1{tbl} Take 1 Tab [facility] MG tablet 1-28 by mouth. Colle ge 19:59: of 19 Medicin e bumetanide Yes 1mg Take 1 mg [facility] (BUMEX) 1 -03 by mouth. Colle ge MG tablet 00:00: of 00 Medicin e rifAXIMin 2018- Yes 550mg Take 550 [place] k[facility]ani (XIFAXAN) 6-14 mg by College 550 MG TABS 00:00: mouth. of 00 Medicin e clopidogrel Yes 75mg Take 75 mg Univers 75 mg 2-01 by mouth ity of tablet 19:56: daily. [address] carvedilol Yes 6.25mg Take 6.25 Univers 6.25 mg 2-01 mg by ity of tablet 19:56: mouth 2 [place] [address] (two) Medical times Branch daily with meals. hydralAZINE Yes 100mg Take 100 U nivers 100 mg 2-01 mg by ity of tablet 19:56: mouth [place] [address] every 12 Medical (twelve) Branch hours. isosorbide Yes 30mg Take 30 mg U nivers dinitrate 2-01 by mouth ity of 30 mg 19:56: daily. [address] Branch PANTOPRAZOL Yes 40mg Take 40 mg Univers E 40 MG 2-01 by mouth ity of IVPB CNR 19:56: daily. [place] [address] Medical [place] clopidogrel Yes 75mg Take 75 mg Univers 75 mg 2-01 by mouth ity of tablet 19:56: daily. [address] Branch carvedilol Yes 6.25mg Take 6.25 Univers 6.25 mg 2-01 mg by ity of tablet 19:56: mouth 2 [place] [address] (two) Medical times Branch daily with meals. hydralAZINE 2018-0 Yes 100mg Take 100 U nivers 100 mg 2-01 mg by ity of tablet 19:56: mouth [place] 25 every 12 Medical (twelve) Branch hours. isosorbide 2019-0 Yes 30mg Take 30 mg U nivers dinitrate 2-01 by mouth ity of 30 mg 19:56: daily. [place] tablet [address] [place] [address] Branch PANTOPRAZOL 2019-0 Yes 40mg Take 40 mg Univers E 40 MG 2-01 by mouth ity of IVPB CNR 19:56: daily. [address] Branch clopidogrel 2019-0 Yes 75mg Take 75 mg Univers 75 mg 2-01 by mouth ity of tablet 19:56: daily. [address] Branch carvedilol 2019-0 Yes 6.25mg Take 6.25 Univers 6.25 mg 2-01 mg by ity of tablet 19:56: mouth 2 [place] [address] (two) Medical times Branch daily with meals. hydralAZINE 2019-0 Yes 100mg Take 100 U nivers 100 mg 2-01 mg by ity of tablet 19:56: mouth [place] 25 every 12 Medical (twelve) Branch hours. isosorbide 2019-0 Yes 30mg Take 30 mg U nivers dinitrate 2-01 by mouth ity of 30 mg 19:56: daily. [place] tablet [address] [place] [address] PANTOPRAZOL 2019-0 Yes 40mg Take 40 mg Univers E 40 MG 2-01 by mouth ity of IVPB CNR 19:56: daily. [address] clopidogrel 2019-0 Yes 75mg Take 75 mg Univers 75 mg 2-01 by mouth ity of tablet 19:56: daily. [address] carvedilol 2019-0 Yes 6.25mg Take 6.25 Univers 6.25 mg 2-01 mg by ity of tablet 19:56: mouth 2 [place] [address] (two) Medical times [place] daily with meals. hydralAZINE 2019-0 Yes 100mg Take 100 U nivers 100 mg 2-01 mg by ity of tablet 19:56: mouth [place] 25 every 12 Medical (twelve) Branch hours. isosorbide 2019-0 Yes 30mg Take 30 mg U nivers dinitrate 2-01 by mouth ity of 30 mg 19:56: daily. [place] tablet [address] [place] [address] Branch PANTOPRAZOL 2019-0 Yes 40mg Take 40 mg Univers E 40 MG 2-01 by mouth ity of IVPB CNR 19:56: daily. [address] pantoprazol 2019-0 Yes 1{tbl} Take 1 Tab [facility] e 1-16 by mouth. College (PROTONIX) 00:00: of 40 MG 00 Medicin tablet e hydrALAZINE 2017-07 Yes 100mg Take 100 [facility] (APRESOLINE 0-01 mg by College ) 50 MG 00:00: mouth two of tablet 00 times Medicin daily. e clopidogrel Yes 75mg 75 mg [place] [facility] (PLAVIX) 75 03-27 daily. Colleg e MG tablet 00:00: of 00 Medicin e labetalol Yes Anuj (NORMODYNE) 03-26 College 200 MG 00:00: of tablet 00 Medicin e carvedilol Yes 6.25mg 6.25 mg [facility] (COREG) 03-13 two times College 3.125 MG 00:00: daily. of tablet Medicin e famotidine Yes 20mg 20 mg two [facility] (PEPCID) 20 03-12 times College MG tablet 00:00: daily. of 00 Medicin e levothyroxi Yes [facility] ne 02-28 College (SYNTHROID) 00:00: of 25 MCG 00 Medicin tablet e atorvastati Yes [facility] n (LIPITOR) 02-14 [place] 10 MG 00:00: of tablet 00 Medicin e H-E-B Yes [facility] INCONTROL 02-14 College PEN NEEDLES 00:00: of 32G X 4 MM 00 Medicin MISC e furosemide 2020- No [facility] (LASIX) 20 02-11 [place] MG tablet 00:00: 00:00 of 00 :00 Medicin e clonidine 2020- No Anuj (CATAPRES) 02-08 [place] 0.1 MG 00:00: 00:00 of tablet 00 :00 Medicin e isosorbide Yes [facility] mononitrate 01-29 College (IMDUR) 30 00:00: of MG CR 00 Medicin tablet e clindamycin 2020- No Sonido r (CLEOCIN) 01-29 College 300 MG 00:00: 00:00 of capsule 00 :00 Medicin e gabapentin Yes [facility] (NEURONTIN) 01-23 College 100 MG 00:00: of capsule 00 Medicin e mupirocin Yes [facility] (BACTROBAN) 7-10 College 2 % 00:00: of ointment 00 Medicin e NIFEdipine 2018-0 Yes [facility] (ADALAT CC) 7-03 College 60 MG CR 00:00: of tablet 00 Medicin e FAMOTIDINE 2006-07 Yes 1 Tab Oral U nivers 20 MG ORAL 2-19 [id number] ity of TAB 00:00: [place] [facility] ATORVASTATI 2006-07 Yes 1 Tab Oral Univers N 10 MG 2-19 QHS ity of ORAL TAB 00:00: [place] [facility] FAMOTIDINE 2006-07 Yes 1 Tab Oral U nivers 20 MG ORAL 2-19 [id number] ity of TAB 00:00: [place] [facility] ATORVASTATI 2006-07 Yes 1 Tab Oral Univers N 10 MG 2-19 QHS ity of ORAL TAB 00:00: [place] [facility] FAMOTIDINE 2006-07 Yes 1 Tab Oral U nivers 20 MG ORAL 2-19 [id number] ity of TAB 00:00: [place] [facility] ATORVASTATI 2006-07 Yes 1 Tab Oral Univers N 10 MG 2-19 QHS ity of ORAL TAB 00:00: [place] [facility] FAMOTIDINE 2006-07 Yes 1 Tab Oral U nivers 20 MG ORAL 2-19 [id number] ity of TAB 00:00: [place] [facility] ATORVASTATI 2006-07 Yes 1 Tab Oral Univers N 10 MG 2-19 QHS ity of ORAL TAB 00:00: [place] [facility] FAMOTIDINE 2006- Yes 1 Tab Oral U nivers 20 MG ORAL 2-19 [id number] ity of TAB 00:00: [place] [facility] ATORVASTATI 2006-07 Yes 1 Tab Oral Univers N 10 MG 2-19 QHS ity of ORAL TAB 00:00: [place] [facility] FAMOTIDINE 2006-07 Yes 1 Tab Oral U nivers 20 MG ORAL 2-19 [id number] ity of TAB 00:00: [place] [facility] ATORVASTATI 2006-07 Yes 1 Tab Oral Univers N 10 MG 2-19 QHS ity of ORAL TAB 00:00: [place] [address] Medical Branch Vital Signs Vital Name Observation Time Observation Value Comments Source HEIGHT 2020-03-15 00:00:00 167.6 cm WEIGHT 2020-03-15 00:00:00 51 kg Systolic blood 2021-12-13 17:52:00 95 mm[Hg] Univer sity of pressure [facility] Diastolic blood 2021-12-13 17:52:00 65 mm[Hg] Unive rsity of pressure [facility] Heart rate 2021-12-13 17:52:00 71 /min Universi ty of [facility] Body temperature 2021-12-13 17:52:00 37.61 Zhane Univ ersity of [facility] Respiratory rate 2021-12-13 17:52:00 18 /min Univ ersity of [facility] Oxygen saturation in 2021-12-13 17:52:00 98 /min University of Arterial blood by [facility] Pulse oximetry [place] Body height 2021-12-08 19:50:00 172.7 cm Universi ty of [facility] Body weight 2021-12-08 19:50:00 72.576 kg Universi ty of [facility] BMI 2021-12-08 19:50:00 24.33 kg/m2 [facility] HEIGHT 2021-08-03 12:28:00 174 cm WEIGHT 2021-08-03 12:28:00 55.339 kg HEIGHT 2021-08-03 12:28:00 174 cm WEIGHT 2021-08-03 12:28:00 55.339 kg HEIGHT 2020-03-15 00:00:00 167.6 cm WEIGHT 2020-03-15 00:00:00 51 kg Systolic blood 2019-10-27 18:54:25 153 mm[Hg] [facility] Diastolic blood 2019-10-27 18:54:25 81 mm[Hg] Unive rsity of pressure [facility] Heart rate 2019-10-27 18:54:25 61 /min [facility] Respiratory rate 2019-10-27 18:54:25 18 /min [facility] Body temperature 2019-10-27 18:41:00 37.06 Zhane [facility] Body weight 2019-10-27 18:41:00 60.328 kg [facility] BMI 2019-10-27 18:41:00 19.64 kg/m2 [facility] Systolic blood 2019-10-27 18:54:25 153 mm[Hg] Univer sity of pressure [facility] Diastolic blood 2019-10-27 18:54:25 81 mm[Hg] [facility] Heart rate 2019-10-27 18:54:25 61 /min [facility] Respiratory rate 2019-10-27 18:54:25 18 /min [facility] Body temperature 2019-10-27 18:41:[address] [facility] Body weight 2019-10-27 18:41:00 60.328 kg [facility] BMI 2019-10-27 18:41:00 19.64 kg/m2 [facility] Procedures Procedure Date / Time Performing Clinician Source Performed MAGNESIUM 2021-12-13 09:25:00 [facility] BASIC METABOLIC PANEL 2021-12-13 09:25:00 [facility] (NA, K, CL, CO2, GLUCOSE, Medica l Branch BUN, CREATININE, CA) CBC WITH DIFF 2021-12-13 09:25:00 [facility] MAGNESIUM 2021-12-12 10:11:00 [facility] BASIC METABOLIC PANEL 2021-12-12 10:11:00 [facility] (NA, K, CL, CO2, GLUCOSE, Medica l Branch BUN, CREATININE, CA) CBC WITH DIFF 2021-12-12 10:11:00 [facility] HEPATITIS B SURFACE 2021-12-12 10:11:00 Kyra Borja [facility] ANTIGEN [facility] BLOOD UREA NITROGEN 2021-12-09 17:06:00 Jelena Bush [facility] HEPATITIS B CORE ANTIBODY 2021-12-09 17:06:00 Azam Ty [facility] BLOOD UREA NITROGEN 2021-12-09 14:28:00 Kyra Borja [facility] MAGNESIUM 2021-12-09 09:34:00 [facility] BASIC METABOLIC PANEL 2021-12-09 09:34:00 Salim, Hamza [facility] (NA, K, CL, CO2, GLUCOSE, Medica l Branch BUN, CREATININE, CA) CBC WITH DIFF 2021-12-09 09:34:00 Rachelle [facility] AUTHORIZATION FOR RELEASE 2021-12-09 05:01:00 Doctor Unassigned, [facility] CT ANGIOGRAM 2021-12-08 21:39:57 Ileana [facility] ABDOMEN/PELVIS Medical Branch TRANSTHORACIC ECHO (TTE) 2021-12-08 19:49:22 Shelley Núñez [facility] COMPLETE W/ CONTRAST Medical Bra [facility] TENA MULTI LEVEL - BY 2021-12-08 15:37:00 [facility] A Medical Branch DUPLEX ARTERIAL LEG RIGHT 2021-12-08 15:01:00 Kenrick Tejeda [facility] - BY VASCULAR LAB Medical Branch PHOSPHORUS 2021-12-08 08:55:00 Rachel[facility] MAGNESIUM 2021-12-08 08:55:00 [facility] BASIC METABOLIC PANEL 2021-12-08 08:55:00 Rachelle [facility] (NA, K, CL, CO2, GLUCOSE, Medica l Branch BUN, CREATININE, CA) CBC WITH DIFF 2021-12-08 08:55:00 [facility] MRSA / MSSA SCREEN BY 2021-12-07 19:21:00 Liane [facility] (ID NOW RAPID 2021-12-07 19:21:00 Rachel [facility] TESTING) Medical Branch LAB ONLY COVID 2021-12-07 19:21:00 Rachel [facility] INTERPRETATION [facility] Branch MAGNESIUM 2021-12-07 08:25:00 Núñez, [facility] FERRITIN SERUM 2021-12-07 08:25:00 Núñez, [facility] BASIC METABOLIC PANEL 2021-12-07 08:25:00 [facility] (NA, K, CL, CO2, GLUCOSE, Medica l Branch BUN, CREATININE, CA) IRON PANEL 2021-12-07 08:25:00 Niya, [facility] CBC WITH DIFF 2021-12-07 08:25:00 Núñez [facility] HEPATITIS B SURFACE 2021-12-07 08:25:00 Liane [facility] ANTIBODY [facility] HEPATITIS B SURFACE 2021-12-07 08:25:00 Brannon [facility] ANTIGEN [facility] HBSAG CONFIRMATORY TEST 2021-12-07 08:25:00 Brannon [facility] LACTIC ACID WHOLE BLOOD 2021-12-07 08:25:[address]ñez [facility] DISCLOSURE AND CONSENT, 2021-12-07 05:01:00 Doctor Unassigned, U [facility] MEDICAL AND SURGICAL [facility] PROCEDURES PHOSPHORUS 2021-12-07 02:14:00 Núñez, [facility] FREE T4 2021-12-07 02:14:00 Núñez, [facility] THYROID STIMULATING 2021-12-07 02:14:00 [facility] [place] HORMONE [facility] BASIC METABOLIC PANEL 2021-12-07 02:14:00 [facility] (NA, K, CL, CO2, GLUCOSE, Medica l Branch BUN, CREATININE, CA) SEDIMENTATION RATE 2021-12-07 02:14:00 [facility] C-REACTIVE PROTEIN 2021-12-07 02:13:00 [facility] POCT GLUCOSE (AUTOMATED) 2021-12-06 22:20:00 Catracho Avendaño [facility] URINE DRUG (IMMUNOASSAY) 2021-12-06 16:40:00 Catracho Avendaño [facility] - COMPREHENSIVE DRUG Medical [facility] SCREEN CT HEAD WO CONTRAST 2021-12-06 15:03:10 Catracho Avendaño [facility] AC PANEL 21 + LACTIC ACID 2021-12-06 14:51:00 Catr[facility] AMMONIA, PLASMA 2021-12-06 14:50:00 Catracho Avendaño [facility] COMP. METABOLIC PANEL 2021-12-06 14:49:00 Catracho Avendaño [facility] ([id number]) Medical Branch ETHANOL 2021-12-06 14:49:00 Catracho Avendaño [facility] CBC WITH DIFF 2021-12-06 14:49:00 Catracho Avendaño [facility] GLYCOSYLATED HEMOGLOBIN 2021-12-06 14:49:00 Niya [facility] (A1C) [facility] PROTHROMBIN TIME / INR 2021-12-06 14:49:00 Catracho Avendaño [facility] ACTIVATED PARTIAL 2021-12-06 14:49:00 Catracho Avendaño [facility] THRMPLAS [facility] XR FOOT <3 VW RIGHT 2021-12-06 14:47:44 Catracho Avendaño [facility] BLOOD CULTURE SCREEN 2021-12-06 14:40:00 Catracho Avendaño [facility] BLOOD CULTURE SCREEN 2021-12-06 14:25:00 Catracho Avendaño [facility] EMERGENCY DEPARTMENT 2021-12-06 05:01:00 Doctor Yon, [facility] DOCUMENTS [facility] HOSPITAL ADMISSION 2021-12-06 05:01:00 Doctor Yon [facility] HEPATIC FUNCTION PANEL 2019-10-27 19:40:00 Catracho Avendaño [facility] ([id number]) (ALB,T.PRO,BILI Medical Branch T,BU/BC,ALT,AST,ALK PHOS) BASIC METABOLIC PANEL 2019-10-27 19:40:00 Catracho Avendaño [facility] (NA, K, CL, CO2, GLUCOSE, Medica l Branch BUN, CREATININE, CA) CBC WITH DIFFERENTIAL 2019-10-27 19:40:00 Catracho Avendaño [facility] NOTICE OF PRIVACY 2019-10-27 18:27:35 Doctor Yon, [facility] PRACTICES [facility] [place] CONSENT/REFUSAL FOR 2019-10-27 18:24:49 [facility] DIAGNOSIS AND TREATMENT [facility] CBC WITH DIFFERENTIAL 2019-10-27 18:05:00 Aracelis Her [facility] ASSIGNMENT OF BENEFITS 2019-10-27 17:47:59 Doctor Unassigned, [facility] OCT, RETINA - OU - BOTH 2019-08-05 20:33:50 Prabha Haskins or [facility] Medicine Plan of Care Planned Activity Planned Date Details Comments Source Future Scheduled Test COLON CANCER SCREENING: [facility] COLONOSCOPY [code = Medicine COLON CANCER SCREENING: COLONOSCOPY] Future Scheduled Test TETANUS SHOT (ADULT) [facility] [code = TETANUS SHOT Medicin e (ADULT)] Future Scheduled Test HEPATITIS C SCREENING [facility] [code = HEPATITIS C Medicine SCREENING] Future Scheduled Test FALL SCREEN [code = [facility] FALL SCREEN] Medicine Future Scheduled Test PNEUMOVAX >=65 (PPSV23) [facility] [code = PNEUMOVAX >=65 Medic ine (PPSV23)] Future Scheduled Test PREVNAR >= 65 (PCV13) [facility] [code = PREVNAR >= 65 Medici ne (PCV13)] Future Scheduled Test FLU VACCINE > 6 MONTHS [facility] [code = FLU VACCINE > 6 Medi cine MONTHS] Future Scheduled Test [facility]ARE) [code = Medicin e MEDICARE IPPE ([facility])] Encounters Start End Encounter Admission Attending Care Care Encounter Source Date/Time Date/Time Type Type Clinicians Facility Department ID 2021-05-05 Emergency [place] [id number] [facility] 18:28:23 ity [facility] 2021-04-13 Inpatient ER FELICE [facility] Cardiology [id number] [facility] 06:10:07 [facility] 2021-12-19 2021-12-28 Inpatient [facility] [id number] [place] 00:00:00 00:00:00 FAYAM [address] 2021-12-14 2021-12-14 Transition CECILIA Vieira [id number] [facility] 00:00:00 00:00:00 of Care Yaneth MINER [id number] it y of [place] 4.2.7.2.686 [place]re [place]orne [phone] [place] [address] Branch 2021-12-06 2021-12-13 [facility] Catracho Avendaño 1.2.840.1 [id number] Univers 09:24:00 17:18:00 Encounter Jag Tang [id number] ity [facility] 4.2.7.2.686 Martínez as [id number] [facility] 098 Branch 2021-12-06 2021-12-13 Inpatient X KITTY [facility] [id number] [facility] 09:24:00 17:18:00 JAG ity [facility] 2021-11-29 2021-12-02 [facility] [id number] [place] 00:00:00 00:00:00 LAUREL 118 Method i 2021-11-09 2021-11-09 [facility] [id number] [place] 00:00:00 00:00:00 REANNA 970 Method i 2021-11-09 2021-11-09 Outpatient NOA [facility] [id number] [place] 00:00:00 00:00:00 REANNA 622 Method i 2021-10-25 2021-10-31 Inpatient JENNIFER [facility] [id number] [place] 00:00:00 00:00:00 AMERICOI, 839 Method i LUCINDA 2021-08-31 2021-08-31 Outpatient ARNOL MICHELLE Srini [id number] [facility] 12:15:30 14:19:15 FELICITAS Colle ge of Medicin e 2021-08-05 2021-08-05 Outpatient ARNOL MICHELLE [facility] [id number] [facility] 11:29:32 13:03:46 FELICITAS Colle ge of Medicin e 2021-08-04 2021-08-[address] [facility] [id number] [facility] 09:17:00 23:59:00 Colleg e of Medicin e 2021-08-04 2021-08-04 Outpatient OMI MICHELLE [facility] Surgery [id number] [facility] 09:17:00 11:55:00 FELICITAS 2021-08-03 2021-08-03 Outpatient [facility] [id number] [facility] 12:33:20 23:59:00 2021-07-27 2021-07-27 Outpatient ARNOL MICHELLE [facility] [id number] [facility] 13:41:53 15:30:39 FELICITAS Colle ge of Medicin e 2021-03-23 2021-03-23 Outpatient ARNOL MICHELLE [facility] [id number] [facility] 14:18:44 16:04:02 FELICITAS Colle ge of Medicin e 2020-07-27 2020-07-27 Outpatient [facility] [id number] [place] 00:00:00 00:00:[address] 2020-07-13 2020-07-13 Outpatient [facility] [id number] [place] 00:00:00 00:00:[address] 2020-06-28 2020-06-28 Outpatient [facility] [id number] [place] 00:00:00 00:00:[address] 2020-06-17 2020-06-17 Outpatient [facility] [id number] [place] 00:00:00 00:00:[address] 2020-05-27 2020-05-27 Outpatient FELIZ ROBLES [facility] [id number] [place] 00:00:00 00:00:[address] 2020-05-27 2020-05-27 Outpatient [facility] [id number] [place] 00:00:00 00:00:[address] 2020-05-27 2020-05-27 Outpatient [facility] [id number] [place] 00:00:00 00:00:[address] 2020-05-11 2020-05-11 Outpatient NOA [facility] [id number] [place] 00:00:00 00:00:00 REANNA [address] 2020-05-06 2020-05-06 Outpatient NOA [facility] [id number] [place] 00:00:00 00:00:00 REANNA [address] 2020-04-29 2020-04-29 Outpatient [facility] [id number] [place] 00:00:00 00:00:[address] 2020-03-30 2020-03-30 Outpatient [facility] [id number] [place] 00:00:00 00:00:[address] 2020-03-30 2020-03-30 Outpatient [facility] [id number] [place] 00:00:00 00:00:00 304 Method i 2020-03-11 2020-03-11 Outpatient FELIZ ROBLES [facility] [id number] [place] 00:00:00 00:00:00 835 Method i 2020-03-09 2020-03-09 Outpatient FELIZ ROBLES [facility] [id number] [place] 00:00:00 00:00:00 744 Method i 2020-03-09 2020-03-09 Outpatient NOA [facility] [id number] [place] 00:00:00 00:00:00 REANNA 009 Method i 2020-03-09 2020-03-09 Outpatient WOJCIECHOWS [facility] [id number] [place] 00:00:00 00:00:00 KI, 919 Method i MIKE 2020-02-25 2020-02-25 Outpatient Young_J MMG MMG [id number] [place] 12:39:00 12:39:00 0819 [facility] 2020-01-21 2020-01-21 Outpatient Young_J MMG MMG [id number] [place] 12:57:00 12:57:00 0715 [facility] 2020-01-20 2020-01-20 Outpatient NOA [facility] 712 [id number] [place] 00:00:00 00:00:00 REANNA 329 Method i 2020-01-15 2020-01-15 Outpatient NOA [facility] [id number] [place] 00:00:00 00:00:00 REANNA 939 Method i 2019-12-16 2019-12-16 Outpatient NOA [facility] [id number] [place] 00:00:00 00:00:00 REANNA 177 Method i 2019-12-03 2019-12-03 Outpatient Young_J MMG MMG [id number] [place] 02:37:00 02:37:00 0527 Medical Group 2019-12-03 2019-12-03 Outpatient NOA [facility] [id number] [place] 00:00:00 00:00:00 REANNA 496 Method i 2019-12-02 2019-12-03 Outpatient [facility] [id number] [place] 00:00:00 00:00:00 237 Method i 2019-11-20 2019-11-20 Outpatient NOA [facility] [id number] [place] 00:00:00 00:00:00 REANNA 403 Method i 2019-10-27 2019-10-27 Emergency [facility] [id number] 13:34:34 16:01:00 Catracho Simon 350.1.13.10 [place] 4.2.7.2.686 [place] [id number] [facility] 2019-10-27 2019-10-27 Emergency [facility] [id number] [facility] 13:34:34 16:01:00 Catrachoyinka Simon 350.1.13.10 i ty of [place].7.2.[place] [id number] [address] 2019-10-27 2019-10-27 Pear Picker Richar [facility] 1.2.840.114 [id number] 12:50:43 13:05:43 Visit Lab Main Josephine 350.1.13.10 [place] 4.2.7.2.686 Professio [id number] [address] 2019-10-27 2019-10-27 Pear Picker Richar, [facility] Lab Main [facility] 1.2.8 40.114 [id number] [facility] 12:50:43 13:05:43 Visit Aracelis Her 350.1.13.10 ity of [place].7.2.[place] [phone] [place] [address] 2019-10-27 2019-10-27 Outpatient R ARDEN [place] [id number] [facility] 11:30:00 11:30:00 ARACELIS [facility] 2019-10-27 2019-10-27 Orders Doctor FIGUEREDO 1.2.840.114 [id number] Univers 00:00:00 00:00:00 Only Unassigned, JUAN RAMON 350.1.13.10 ity of [facility] 4.2.7.2.686 Martínez as [phone] [facility] 009 Branch 2019-10-24 2019-10-24 Outpatient NOA [facility] [id number] [place] 00:00:00 00:00:00 REANNA [address] 2019-10-23 2019-10-23 Outpatient NOA, [facility] [id number] [place] 00:00:00 00:00:00 REANNA 117 Method i 2019-10-23 2019-10-23 Outpatient MARGARITA, [facility] [id number] [place] 00:00:00 00:00:00 APOOR [address] 2019-08-05 2019-08-05 Office Prabha Haskins [facility] 1.2.840.11 [id number] [facility] 13:30:07 15:04:39 Visit 3, Ods AMBULATOR 350.1.13.21 College Y 0.2.7.2.686 of [id number] Medi javy 300 e 2019-08-05 2019-08-05 Office Jason Haskinsina [facility] 1.2.840.11 [id number] 13:30:07 15:04:39 Visit 3, Ods AMBULATOR 350.1.13.21 Y 0.2.7.2.686 [id number] 300 Results Test Description Test Time Test Comments Results Result Comments Source SARS-CoV-2 (COVID-19) RNA [Presence] in Respiratory sp ecimen by 2021-12-27 03:09:36 KARLA with probe detection Test Item Value Reference Range Interpretation Comme nts SARS-CoV-2 (COVID-19) RNA [Presence] in Respiratory specimen by Not detected KARLA with probe detection (test code = 09283-5) Whether patient is employed in a healthcare setting (test code = Un known 89383-4) Whether the patient has symptoms related to condition of interest U nknown (test code = 26873-3) Whether the patient was hospitalized for condition of interest Unkn own (test code = 48915-6) Whether the patient was admitted to intensive care unit (ICU) for U nknown condition of interest (test code = 97374-9) Whether patient resides in a congregate care setting (test code = U nknown 46973-9) status (test code = 58048-0) Unknown Date and time of symptom onset (test code = 31381-4) Unknown SARS-CoV-2 (COVID-19) RNA [Presence] in Respiratory specimen by KARLA with probe [id number] 21:22:24 Test Item Value Reference Range Interpretation Comments SARS-CoV-2 (COVID-19) RNA Not detected [Presence] in Respiratory specimen by KARLA with probe detection (test code = 12211-0) Whether patient is employed in a Unknown healthcare setting (test code = 65416-2) Whether the patient has symptoms Unknown related to condition of interest (test code = 02875-8) Whether the patient was Unknown hospitalized for condition of interest (test code = 29891-0) Whether the patient was admitted Unknown to intensive care unit (ICU) for condition of interest (test code = 07922-4) Whether patient resides in a Unknown congregate care setting (test code = 17195-7) status (test code = Unknown 29708-2) Date and time of symptom onset Unknown (test code = 29950-4) BASIC METABOLIC PANEL (NA, K, CL, CO2, GLUCOSE, BUN, CREATININE, CA)2021-12-13 10:16:03 Test Item Value Reference Range Interpretation Comments NA (test code = 135 mmol/L 135-145 7830808400) K (test code = 3.8 mmol/L 3.5-5.0 1344704328) CL (test code = 106 mmol/L 98-108 3796427176) CO2 TOTAL (test code = 23 mmol/L 23-31 3848626266) AGAP (test code = 2-16 7108217514) BUN (test code = 28 mg/dL 7-23 H 8035307473) GLUCOSE (test code = 75 mg/dL 70-110 6467470109) CREATININE (test code = 3.15 mg/dL 0.60-1.25 H 4067126329) CALCIUM (test code = 7.9 mg/dL 8.6-10.6 L 6456196433) eGFR (test code = mL/min/1.73m2 5683183193) GIBRAN (test code = GIBRAN) Association of Glomerular Filtration Rate (GFR) and Staging of Kidney Disease* + --+ --+ ------+| GFR (mL/min/1.73 m2) ?| With Kidney Damage ?| ?Without Kidney Damage+ --------+ --------+ +| ?>90 ?| ?Stage one ?| ? Normal ?+ ---+ ---+ -------+| ?60-89 ?| ?Stage two ?| ? Decreased GFR ? + --+ --+ ------+| ?30-59 ?| ?Stage three ?| ? Stage three ? + --+ --+ ------+| ?15-29 ?| ?Stage four ? | ? Stage four ?+ ---+ ---+ -------+| ?<15 (or dialysis) ? ?| ?Stage five ? | ? Stage five ?+ ---+ ---+ -------+ *Each stage assumes the associated GFR level has been in effect for at least three months. ?Stages 1 to 5, with or without kidney disease, indicate chronic kidney disease. Notes: Determination of stages one and two (with eGFR >59mL/min/1.73 m2) requires estimation of kidney damage for at least three months as defined by structural or functional abnormalities of the kidney, manifested by either:Pathological abnormalities or Markers of kidney damage (including abnormalities in the composition of the blood or urine or abnormalities in imaging tests). Lab Interpretation Abnormal (test code = 42223-7) [facility] 10:16[facility]03 Test Item Value Reference Range Interpretation Comments MAGNESIUM (test code = 9089029055) 1.9 mg/dL 1.7-2.4 Lab Interpretation (test code = Normal 65324-2) [facility] WITH [id number] 10:13:00 Test Item Value Reference Range Interpretation Comments WBC (test code = See_Comment [Automated 4990-2) message] The sy stem which generated this result transmitted reference range : 4.20 - 10.70 10*3/?L. The reference range was not used to interpret this result as normal/abnormal . RBC (test code = See_Comment L [Automated 683-8) message] The sy stem which generated this result transmitted reference range : 4.26 - 5.52 10*6/?L. The reference range was not used to interpret this result as normal/abnormal . HGB (test code = 10.6 g/dL 12.2-16.4 L 718-7) HCT (test code = 33.5 % 38.4-49.3 L 4544-3) MCV (test code = 99.4 fL 81.7-95.6 H 787-2) MCH (test code = 31.5 pg 26.1-32.7 785-6) MCHC (test code = 31.6 g/dL 31.2-35.0 786-4) RDW-SD (test code = 55.8 fL 38.5-51.6 H 95359-2) RDW-CV (test code = 15.2 % 12.1-15.4 788-0) PLT (test code = See_Comment L [Automated 777-3) message] The sy stem which generated this result transmitted reference range : 150 - 328 10*3/ ?L. The reference r ray was not used to interpret this result as normal/abnormal . MPV (test code = 11.3 fL 9.8-13.0 25608-9) IPF % (test code = 5.8 % 1.2-10.7 Platelet count 4336183761) measured by fluorescence method. NRBC/100 WBC (test See_Comment [Automat ed code = 3179807121) message] The system which generated this result transmitted reference range : 0.0 - 10.0 /100 WBCs. The refer ence range was not u sed to interpret th is result as normal/abnormal . NRBC x10^3 (test code <0.01 See_Comment [Auto mated = 3644691556) message] The s ystem which generated this result transmitted reference range : 10*3/?L. The reference range was not used to interpret this result as normal/abnormal . GRAN MAT (NEUT) % 76.9 % (test code = 770-8) IMM GRAN % (test code 0.30 % = 7926676502) LYMPH % (test code = 12.6 % 736-9) MONO % (test code = 8.7 % 5905-5) EOS % (test code = 1.0 % 713-8) BASO % (test code = 0.5 % 706-2) GRAN MAT x10^3(ANC) 4.75 10*3/uL 1.99-6.95 (test code = 4236654263) IMM GRAN x10^3 (test <0.03 0.00-0.06 code = 8445184567) LYMPH x10^3 (test code 0.78 10*3/uL 1.09-3.23 L = 731-0) MONO x10^3 (test code 0.54 10*3/uL 0.36-1.02 = 742-7) EOS x10^3 (test code = 0.06 10*3/uL 0.06-0.53 711-2) BASO x10^3 (test code 0.03 10*3/uL 0.01-0.09 = 704-7) Lab Interpretation Abnormal (test code = 76772-9) [facility] (HBsAg)2021-12-12 22:03:21 Test Item Value Reference Range Interpretation Comments HBsAg Negative Negative Results was pre viously Semi-Quantitative Reactive; repeat in 4-6 (test code = 5195-3) weeks i f clinically significant. [facility] METABOLIC PANEL (NA, K, CL, CO2, GLUCOSE, BUN, CREATININE, CA)2021-12-12 10:57:22 Test Item Value Reference Range Interpretation Comments NA (test code = 136 mmol/L 135-145 5043550597) K (test code = 4.4 mmol/L 3.5-5.0 2684258973) CL (test code = 104 mmol/L 98-108 0189785950) CO2 TOTAL (test code = 25 mmol/L 23-31 3000041174) AGAP (test code = 2-16 7299980058) BUN (test code = 52 mg/dL 7-23 H 8091497808) GLUCOSE (test code = 83 mg/dL 70-110 8696879328) CREATININE (test code = 5.20 mg/dL 0.60-1.25 H 2205692666) CALCIUM (test code = 7.7 mg/dL 8.6-10.6 L 8511111661) eGFR (test code = mL/min/1.73m2 8305364695) GIBRAN (test code = GIBRAN) Association of Glomerular Filtration Rate (GFR) and Staging of Kidney Disease* + --+ --+ ------+| GFR (mL/min/1.73 m2) ?| With Kidney Damage ?| ?Without Kidney Damage+ --------+ --------+ +| ?>90 ?| ?Stage one ?| ? Normal ?+ ---+ ---+ -------+| ?60-89 ?| ?Stage two ?| ? Decreased GFR ? + --+ --+ ------+| ?30-59 ?| ?Stage three ?| ? Stage three ? + --+ --+ ------+| ?15-29 ?| ?Stage four ? | ? Stage four ?+ ---+ ---+ -------+| ?<15 (or dialysis) ? ?| ?Stage five ? | ? Stage five ?+ ---+ ---+ -------+ *Each stage assumes the associated GFR level has been in effect for at least three months. ?Stages 1 to 5, with or without kidney disease, indicate chronic kidney disease. Notes: Determination of stages one and two (with eGFR >59mL/min/1.73 m2) requires estimation of kidney damage for at least three months as defined by structural or functional abnormalities of the kidney, manifested by either:Pathological abnormalities or Markers of kidney damage (including abnormalities in the composition of the blood or urine or abnormalities in imaging tests). Lab Interpretation Abnormal (test code = 58659-4) [facility]57[facility]22 Test Item Value Reference Range Interpretation Comments MAGNESIUM (test code = 0094282310) 2.0 mg/dL 1.7-2.4 Lab Interpretation (test code = Normal 47511-7) [facility] WITH [id number] 10:30:17 Test Item Value Reference Range Interpretation Comments WBC (test code = See_Comment [Automated 1603-2) message] The sy stem which generated this result transmitted reference range : 4.20 - 10.70 10*3/?L. The reference range was not used to interpret this result as normal/abnormal . RBC (test code = See_Comment L [Automated 737-5) message] The sy stem which generated this result transmitted reference range : 4.26 - 5.52 10*6/?L. The reference range was not used to interpret this result as normal/abnormal . HGB (test code = 11.2 g/dL 12.2-16.4 L 718-7) HCT (test code = 35.5 % 38.4-49.3 L 4544-3) MCV (test code = 96.7 fL 81.7-95.6 H 787-2) MCH (test code = 30.5 pg 26.1-32.7 785-6) MCHC (test code = 31.5 g/dL 31.2-35.0 786-4) RDW-SD (test code = 54.4 fL 38.5-51.6 H 10196-4) RDW-CV (test code = 15.2 % 12.1-15.4 788-0) PLT (test code = See_Comment [Automated 777-3) message] The sy stem which generated this result transmitted reference range : 150 - 328 10*3/ ?L. The reference r ray was not used to interpret this result as normal/abnormal . MPV (test code = 11.5 fL 9.8-13.0 32662-5) NRBC/100 WBC (test See_Comment [Automat ed code = 0885781122) message] The system which generated this result transmitted reference range : 0.0 - 10.0 /100 WBCs. The refer ence range was not u sed to interpret th is result as normal/abnormal . NRBC x10^3 (test code <0.01 See_Comment [Auto mated = 1647665463) message] The s ystem which generated this result transmitted reference range : 10*3/?L. The reference range was not used to interpret this result as normal/abnormal . GRAN MAT (NEUT) % 69.4 % (test code = 770-8) IMM GRAN % (test code 0.40 % = 2471176365) LYMPH % (test code = 15.4 % 736-9) MONO % (test code = 13.4 % 5905-5) EOS % (test code = 1.0 % 713-8) BASO % (test code = 0.4 % 706-2) GRAN MAT x10^3(ANC) 3.42 10*3/uL 1.99-6.95 (test code = 5862564376) IMM GRAN x10^3 (test <0.03 0.00-0.06 code = 5828809981) LYMPH x10^3 (test code 0.76 10*3/uL 1.09-3.23 L = 731-0) MONO x10^3 (test code 0.66 10*3/uL 0.36-1.02 = 742-7) EOS x10^3 (test code = 0.05 10*3/uL 0.06-0.53 L 711-2) BASO x10^3 (test code <0.03 0.01-0.09 = 704-7) Lab Interpretation Abnormal (test code = 90914-2) [facility] Culture - Peripheral # [id number] 15:36:28 Test Item Value Reference Range Interpretation Comments Blood Culture-Aerobic No organisms No growth Previo us (test code = 85428-1) isolated prelim inary verified result was Culture In Progress on 12/06/2021 at 14 01 CDTPrevious preliminary verified result was No growth a t 24 hours on 12/07/2021 at 110 1 CDTPrevious preliminary verified result was No growth a t 48 hours on 12/08/2021 at 110 1 CDTPrevious preliminary verified result was No growth a t 72 hours on 12/09/2021 at 110 1 CDT Blood No organisms No growth Previous Culture-Anaerobic isolated preliminar y (test code = 61601-6) verifi ed result was Culture In Progress on 12/06/2021 at 14 01 CDTPrevious preliminary verified result was No growth a t 24 hours on 12/07/2021 at 110 1 CDTPrevious preliminary verified result was No growth a t 48 hours on 12/08/2021 at 110 1 CDTPrevious preliminary verified result was No growth a t 72 hours on 12/09/2021 at 110 1 CDT Lab Interpretation Normal (test code = 27431-9) [facility] Culture - Peripheral # [id number] 15:35:53 Test Item Value Reference Range Interpretation Comments Blood Culture-Aerobic No organisms No growth Previo us (test code = 04181-3) isolated prelim inary verified result was Culture In Progress on 12/06/2021 at 14 01 CDTPrevious preliminary verified result was No growth a t 24 hours on 12/07/2021 at 110 1 CDTPrevious preliminary verified result was No growth a t 48 hours on 12/08/2021 at 110 1 CDTPrevious preliminary verified result was No growth a t 72 hours on 12/09/2021 at 110 1 CDT Blood No organisms No growth Previous Culture-Anaerobic isolated preliminar y (test code = 43229-3) verifi ed result was Culture In Progress on 12/06/2021 at 14 01 CDTPrevious preliminary verified result was No growth a t 24 hours on 12/07/2021 at 110 1 CDTPrevious preliminary verified result was No growth a t 48 hours on 12/08/2021 at 110 1 CDTPrevious preliminary verified result was No growth a t 72 hours on 12/09/2021 at 110 1 CDT Lab Interpretation Normal (test code = 37045-4) [facility]AT[facility] CORE ANTIBODY [id number] 19:47:05 Test Item Value Reference Range Interpretation Comments HBCM Negative Semi-Quantitative (test code = 90448-4) GIBRAN (test code = Biotin has been reported GIBRAN) to cause a negative bias, interpret results relative to patient's use of biotin. [facility] Urea Nitrogen - [id number] 17:26:57 Test Item Value Reference Range Interpretation Comments BUN (test code = 9794785923) 14 mg/dL 7-23 Slight hemolysis Lab Interpretation (test Normal code = 72804-4) [facility] Urea Nitrogen - [id number] 15:08:21 Test Item Value Reference Range Interpretation Comments BUN (test code = 6882967898) 21 mg/dL 7-23 Lab Interpretation (test code = Normal 83409-2) [facility] 10:30:49 Test Item Value Reference Range Interpretation Comments MAGNESIUM (test code = 7587771129) 1.8 mg/dL 1.7-2.4 Lab Interpretation (test code = Normal 35291-6) [facility] (NA, K, CL, CO2, GLUCOSE, BUN, CREATININE, CA)2021-12-09 10:30:48 Test Item Value Reference Range Interpretation Comments NA (test code = 135 mmol/L 135-145 7812832276) K (test code = 3.8 mmol/L 3.5-5.0 7581301474) CL (test code = 104 mmol/L 98-108 9064990889) CO2 TOTAL (test code = 26 mmol/L 23-31 6238699744) AGAP (test code = 2-16 8365436060) BUN (test code = 41 mg/dL 7-23 H 1104635870) GLUCOSE (test code = 98 mg/dL 70-110 7813135031) CREATININE (test code = 4.11 mg/dL 0.60-1.25 H 9897194152) CALCIUM (test code = 7.8 mg/dL 8.6-10.6 L 8352282226) eGFR (test code = mL/min/1.73m2 3382794889) GIBRAN (test code = GIBRAN) Association of Glomerular Filtration Rate (GFR) and Staging of Kidney Disease* + --+ --+ ------+| GFR (mL/min/1.73 m2) ?| With Kidney Damage ?| ?Without Kidney Damage+ --------+ --------+ +| ?>90 ?| ?Stage one ?| ? Normal ?+ ---+ ---+ -------+| ?60-89 ?| ?Stage two ?| ? Decreased GFR ? + --+ --+ ------+| ?30-59 ?| ?Stage three ?| ? Stage three ? + --+ --+ ------+| ?15-29 ?| ?Stage four ? | ? Stage four ?+ ---+ ---+ -------+| ?<15 (or dialysis) ? ?| ?Stage five ? | ? Stage five ?+ ---+ ---+ -------+ *Each stage assumes the associated GFR level has been in effect for at least three months. ?Stages 1 to 5, with or without kidney disease, indicate chronic kidney disease. Notes: Determination of stages one and two (with eGFR >59mL/min/1.73 m2) requires estimation of kidney damage for at least three months as defined by structural or functional abnormalities of the kidney, manifested by either:Pathological abnormalities or Markers of kidney damage (including abnormalities in the composition of the blood or urine or abnormalities in imaging tests). Lab Interpretation Abnormal (test code = 87030-4) [facility] WITH [id number] 09:57:23 Test Item Value Reference Range Interpretation Comments WBC (test code = See_Comment [Automated 6690-2) message] The sy stem which generated this result transmitted reference range : 4.20 - 10.70 10*3/?L. The reference range was not used to interpret this result as normal/abnormal . RBC (test code = See_Comment L [Automated 789-8) message] The sy stem which generated this result transmitted reference range : 4.26 - 5.52 10*6/?L. The reference range was not used to interpret this result as normal/abnormal . HGB (test code = 10.3 g/dL 12.2-16.4 L 718-7) HCT (test code = 32.6 % 38.4-49.3 L 4544-3) MCV (test code = 96.4 fL 81.7-95.6 H 787-2) MCH (test code = 30.5 pg 26.1-32.7 785-6) MCHC (test code = 31.6 g/dL 31.2-35.0 786-4) RDW-SD (test code = 55.2 fL 38.5-51.6 H 23783-6) RDW-CV (test code = 15.5 % 12.1-15.4 H 788-0) PLT (test code = See_Comment L [Automated 777-3) message] The sy stem which generated this result transmitted reference range : 150 - 328 10*3/ ?L. The reference r ray was not used to interpret this result as normal/abnormal . MPV (test code = 11.2 fL 9.8-13.0 76860-3) NRBC/100 WBC (test See_Comment [Automat ed code = 6363445721) message] The system which generated this result transmitted reference range : 0.0 - 10.0 /100 WBCs. The refer ence range was not u sed to interpret th is result as normal/abnormal . NRBC x10^3 (test code <0.01 See_Comment [Auto mated = 9106834206) message] The s ystem which generated this result transmitted reference range : 10*3/?L. The reference range was not used to interpret this result as normal/abnormal . GRAN MAT (NEUT) % 79.4 % (test code = 770-8) IMM GRAN % (test code 0.40 % = 0827610210) LYMPH % (test code = 8.7 % 736-9) MONO % (test code = 10.4 % 5905-5) EOS % (test code = 0.7 % 713-8) BASO % (test code = 0.4 % 706-2) GRAN MAT x10^3(ANC) 6.00 10*3/uL 1.99-6.95 (test code = 1992152109) IMM GRAN x10^3 (test 0.03 10*3/uL 0.00-0.06 code = 5237586562) LYMPH x10^3 (test code 0.66 10*3/uL 1.09-3.23 L = 731-0) MONO x10^3 (test code 0.79 10*3/uL 0.36-1.02 = 742-7) EOS x10^3 (test code = 0.05 10*3/uL 0.06-0.53 L 711-2) BASO x10^3 (test code 0.03 10*3/uL 0.01-0.09 = 704-7) Lab Interpretation Abnormal (test code = 31335-5) [facility]2021-12-08 23:27:58 Test Item Value Reference Range Interpretation Comments LVOT peak kenneth (test code 60.0 cm/s = 2145990325) LVOT mn grad (test code mmHg = 1415212201) AV LVOT peak gradient mmHg (test code = 8541244816) LVOT peak VTI (test code 10.8 cm = 7495875125) LV V1 mean (test code = 34.00 cm/s 0095677560) Ao peak kenneth (test code = 97.7 cm/s 8054708501) Ao max PG (test code = 3.80 mm[Hg] 7272906927) AV peak gradient (test mmHg code = 6813505632) LAV(MOD-sp2) (test code 69.30 mL = 3352199069) LVOT stroke volume (test 27.10 cm3 code = 9729914740) EF (HM) (test code = 33.00 % 1327562178) LVIDD (test code = 4.70 cm 8010513057) IVS (test code = 1.04 cm 0500181397) LVOT diameter (test code 1.79 cm = 8868285390) MV Peak E Kenneth (test code 103.3 cm/s = 2378644850) E wave decelartion time 0.19 s (test code = 7447770652) LA Volume Index (BP) 38.1 mL/m2 (test code = 7276940702) LA volume (BP) (test 70.9 mL code = 1215257464) ED Current (HM) (test 60.00 % code = 7177055981) ED Default (HM) (test 60.00 % code = 8984395174) SV (HM) (test code = 59.00 mL 5635596477) LA size (test code = 3.6 cm 9000958029) LAV(MOD-sp4) (test code 66.10 mL = 0231051562) Tapse (test code = 1.52 cm 9822972938) AV area peak kenneth (test 1.5 cm2 code = 7674104209) ACS (test code = 1.68 cm 9361731353) MV Prop V (test code = 29.90 cm/s 4241598918) TR Peak Kenneth (test code = 373.5 cm/s 8086642834) Triscuspid Valve mmHg Regurgitation Peak Gradient (test code = 7954350380) PV REGURGITATION PEAK mmHg GRADIENT (test code = 3369687350) Ao root annulus (test 3.0 cm code = 7029126114) Ao root diam (test code 3.00 cm = 4477719477) Aortic root (test code = 3.0 cm 8539244924) Interventricular Septum 1.04 cm Diastolic Thickness by 2D (test code = 8597179) LVPWD (test code = 1.06 cm 6180394865) PW (test code = 1.06 cm 0.6-1.8 9040441582) EF(Teich) (test code = 62.40 % 5400131715) LVIDS (test code = 3.10 cm 1645829076) FS (test code = 34 % 0194858882) EF - 2D (test code = 62.40 % 48084664) LV Diastolic Volume (BP) 178.1 mL (test code = 3193542924) EF(MOD-bp) (test code = 30.50 % 0120061928) LV Systolic Volume (BP) 123.7 mL (test code = 4689885824) SV(MOD-bp) (test code = 54.40 mL 0812706088) EF (test code = 31 % 7851616134) Left Ventricular Stroke 54.4 mL Volume by 2-D Biplane-MOD (test code = 7888282) Radiology Study observation (narrative) (test code = 08205-8) GIBRAN (test code = GIBRAN) ?Left?Ventricle: Left ventricle is mildly dilated. Normal wall thickness. Severe global hypokinesis present. Severely reduced systolic function with a visually estimated EF of 25 - 30%. EF by 2D Gee biplane is 31 %. Diastolic dysfunction but unable to grade due to MAC. Cannot exclude apical thrombus. ?. ?Right?Ventricle: Right ventricle is mildly dilated. Moderately reduced systolic function. ?Tricuspid?Valve: Tricuspid valve structure is normal. Moderate transvalvular regurgitation. There is severe pulmonary hypertension. ?Right ventricular systolic pressure is greater than 60 mmHg. ?RA pressure is 15-20 mmHg. VitalsHeight Weight BSA (Calculated - sq m) BP Pulse 5' 8" (1.727 m) 160 lb (72.6 kg) 1.86 sq meters 145/63 65 [facility] ClinicHBsAg Confirmatory [id number] 11:52:36 Test Item Value Reference Range Interpretation Comments HBsAg Confirmation (test code = Indeterminate 7905-3) [facility] Clinic[facility]atitis B Surface Antigen (HBsAg)2021-12-08 11:52:16 Test Item Value Reference Range Interpretation Comments HBsAg Semi-Quantitative (test code = Reactive Negative A 5195-3) Lab Interpretation (test code = Abnormal 35904-9) [facility] METABOLIC PANEL (NA, K, CL, CO2, GLUCOSE, BUN, CREATININE, CA)2021-12-08 09:53:10 Test Item Value Reference Range Interpretation Comments NA (test code = 136 mmol/L 135-145 7229987463) K (test code = 4.0 mmol/L 3.5-5.0 8358402811) CL (test code = 105 mmol/L 98-108 0041399143) CO2 TOTAL (test code = 25 mmol/L 23-31 8795916855) AGAP (test code = 2-16 5902244752) BUN (test code = 31 mg/dL 7-23 H 1196753321) GLUCOSE (test code = 121 mg/dL 70-110 H 4335338896) CREATININE (test code = 3.32 mg/dL 0.60-1.25 H 6541819582) CALCIUM (test code = 8.1 mg/dL 8.6-10.6 L 2590377278) eGFR (test code = mL/min/1.73m2 2733878542) GIBRAN (test code = GIBRAN) Association of Glomerular Filtration Rate (GFR) and Staging of Kidney Disease* + --+ --+ ------+| GFR (mL/min/1.73 m2) ?| With Kidney Damage ?| ?Without Kidney Damage+ --------+ --------+ +| ?>90 ?| ?Stage one ?| ? Normal ?+ ---+ ---+ -------+| ?60-89 ?| ?Stage two ?| ? Decreased GFR ? + --+ --+ ------+| ?30-59 ?| ?Stage three ?| ? Stage three ? + --+ --+ ------+| ?15-29 ?| ?Stage four ? | ? Stage four ?+ ---+ ---+ -------+| ?<15 (or dialysis) ? ?| ?Stage five ? | ? Stage five ?+ ---+ ---+ -------+ *Each stage assumes the associated GFR level has been in effect for at least three months. ?Stages 1 to 5, with or without kidney disease, indicate chronic kidney disease. Notes: Determination of stages one and two (with eGFR >59mL/min/1.73 m2) requires estimation of kidney damage for at least three months as defined by structural or functional abnormalities of the kidney, manifested by either:Pathological abnormalities or Markers of kidney damage (including abnormalities in the composition of the blood or urine or abnormalities in imaging tests). Lab Interpretation Abnormal (test code = 22093-0) [facility]20[facility] 09:53:10 Test Item Value Reference Range Interpretation Comments MAGNESIUM (test code = 8260039426) 1.8 mg/dL 1.7-2.4 Lab Interpretation (test code = Normal 91087-2) [facility] ClinicPHOSPHORUS2022-06-02 09:53:10 Test Item Value Reference Range Interpretation Comments PHOSPHORUS (test code = 9998052809) 3.2 mg/dL 2.5-5.0 Lab Interpretation (test code = Normal 12515-9) [facility] WITH [id number] 09:11:24 Test Item Value Reference Range Interpretation Comments WBC (test code = See_Comment [Automated 6690-2) message] The sy stem which generated this result transmitted reference range : 4.20 - 10.70 10*3/?L. The reference range was not used to interpret this result as normal/abnormal . RBC (test code = See_Comment L [Automated 789-8) message] The sy stem which generated this result transmitted reference range : 4.26 - 5.52 10*6/?L. The reference range was not used to interpret this result as normal/abnormal . HGB (test code = 10.3 g/dL 12.2-16.4 L 718-7) HCT (test code = 32.5 % 38.4-49.3 L 4544-3) MCV (test code = 96.7 fL 81.7-95.6 H 787-2) MCH (test code = 30.7 pg 26.1-32.7 785-6) MCHC (test code = 31.7 g/dL 31.2-35.0 786-4) RDW-SD (test code = 55.6 fL 38.5-51.6 H 16522-1) RDW-CV (test code = 15.8 % 12.1-15.4 H 788-0) PLT (test code = See_Comment L [Automated 777-3) message] The sy stem which generated this result transmitted reference range : 150 - 328 10*3/ ?L. The reference r ray was not used to interpret this result as normal/abnormal . MPV (test code = 12.1 fL 9.8-13.0 61422-2) NRBC/100 WBC (test See_Comment [Automat ed code = 6228511808) message] The system which generated this result transmitted reference range : 0.0 - 10.0 /100 WBCs. The refer ence range was not u sed to interpret th is result as normal/abnormal . NRBC x10^3 (test code <0.01 See_Comment [Auto mated = 9485271285) message] The s ystem which generated this result transmitted reference range : 10*3/?L. The reference range was not used to interpret this result as normal/abnormal . GRAN MAT (NEUT) % 80.0 % (test code = 770-8) IMM GRAN % (test code 0.20 % = 0959306782) LYMPH % (test code = 9.2 % 736-9) MONO % (test code = 9.3 % 5905-5) EOS % (test code = 0.9 % 713-8) BASO % (test code = 0.4 % 706-2) GRAN MAT x10^3(ANC) 6.50 10*3/uL 1.99-6.95 (test code = 4017872666) IMM GRAN x10^3 (test <0.03 0.00-0.06 code = 6663762253) LYMPH x10^3 (test code 0.75 10*3/uL 1.09-3.23 L = 731-0) MONO x10^3 (test code 0.76 10*3/uL 0.36-1.02 = 742-7) EOS x10^3 (test code = 0.07 10*3/uL 0.06-0.53 711-2) BASO x10^3 (test code 0.03 10*3/uL 0.01-0.09 = 704-7) Lab Interpretation Abnormal (test code = 80909-5) [facility] ClinicHepatitis B Surface Antibody (HBsAb)2021-12-07 20:35:49 Test Item Value Reference Range Interpretation Comments HBsAB (test code = Negative 6348985925) HBsAb mIU/mL Semi-Quantitative (test code = 7886346722) GIBRAN (test code = Interpretation: GIBRAN) ?Hepatitis B Surface Antibody ? Negative - Patient is considered to be not immune to infection with HBV. ? ? Positive - Anti-HBs detected at greater than or equal to 12 mIU/mL. ?Patient is considered to be immune to infection with HBV. ? [facility] ClinicC-REACTIVE [id number] 14:44:54 Test Item Value Reference Range Interpretation Comments CRP (test code = 0506062029) 0.9 mg/dL <0.8 H Lab Interpretation (test code = Abnormal 57389-5) [facility] ClinicFERRITIN [id number] 10:40:50 Test Item Value Reference Range Interpretation Comments FERRITIN (test code = 401.0 ng/mL 18.0-464.0 4075671048) GIBRAN (test code = GIBRAN) Biotin has been reported to cause a negative bias, interpret results relative to patient's use of biotin. Lab Interpretation (test Normal code = 61092-8) [facility] ClinicIRON [id number] 10:28:07 Test Item Value Reference Range Interpretation Comments IRON (test code = 2052170765) 45 ug/dL 50-160 L TIBC (test code = 6991613949) 192 ug/dL 250-410 L % FE SAT (test code = 5395027668) 23 % 20-50 Lab Interpretation (test code = Abnormal 46567-5) [facility] (NA, K, CL, CO2, GLUCOSE, BUN, CREATININE, CA)2021-12-07 09:04:18 Test Item Value Reference Range Interpretation Comments NA (test code = 139 mmol/L 135-145 8688387572) K (test code = 4.1 mmol/L 3.5-5.0 1403976209) CL (test code = 107 mmol/L 98-108 1245008579) CO2 TOTAL (test code = 23 mmol/L 23-31 0903884035) AGAP (test code = 2-16 9656335278) BUN (test code = 59 mg/dL 7-23 H 8530448438) GLUCOSE (test code = 126 mg/dL 70-110 H 1025419466) CREATININE (test code = 5.56 mg/dL 0.60-1.25 H 9422871543) CALCIUM (test code = 7.9 mg/dL 8.6-10.6 L 2446811372) eGFR (test code = mL/min/1.73m2 5943490175) GIBRAN (test code = GIBRAN) Association of Glomerular Filtration Rate (GFR) and Staging of Kidney Disease* + --+ --+ ------+| GFR (mL/min/1.73 m2) ?| With Kidney Damage ?| ?Without Kidney Damage+ --------+ --------+ +| ?>90 ?| ?Stage one ?| ? Normal ?+ ---+ ---+ -------+| ?60-89 ?| ?Stage two ?| ? Decreased GFR ? + --+ --+ ------+| ?30-59 ?| ?Stage three ?| ? Stage three ? + --+ --+ ------+| ?15-29 ?| ?Stage four ? | ? Stage four ?+ ---+ ---+ -------+| ?<15 (or dialysis) ? ?| ?Stage five ? | ? Stage five ?+ ---+ ---+ -------+ *Each stage assumes the associated GFR level has been in effect for at least three months. ?Stages 1 to 5, with or without kidney disease, indicate chronic kidney disease. Notes: Determination of stages one and two (with eGFR >59mL/min/1.73 m2) requires estimation of kidney damage for at least three months as defined by structural or functional abnormalities of the kidney, manifested by either:Pathological abnormalities or Markers of kidney damage (including abnormalities in the composition of the blood or urine or abnormalities in imaging tests). Lab Interpretation Abnormal (test code = 77001-1) [facility] ClinicMagnesium [id number] 09:04:18 Test Item Value Reference Range Interpretation Comments MAGNESIUM (test code = 8584098598) 1.9 mg/dL 1.7-2.4 Lab Interpretation (test code = Normal 94268-3) [facility] with [id number] 08:46:39 Test Item Value Reference Range Interpretation Comments WBC (test code = See_Comment [Automated 5745-2) message] The sy stem which generated this result transmitted reference range : 4.20 - 10.70 10*3/?L. The reference range was not used to interpret this result as normal/abnormal . RBC (test code = See_Comment L [Automated 818-8) message] The sy stem which generated this result transmitted reference range : 4.26 - 5.52 10*6/?L. The reference range was not used to interpret this result as normal/abnormal . HGB (test code = 10.0 g/dL 12.2-16.4 L 718-7) HCT (test code = 31.8 % 38.4-49.3 L 4544-3) MCV (test code = 97.5 fL 81.7-95.6 H 787-2) MCH (test code = 30.7 pg 26.1-32.7 785-6) MCHC (test code = 31.4 g/dL 31.2-35.0 786-4) RDW-SD (test code = 55.7 fL 38.5-51.6 H 93696-1) RDW-CV (test code = 15.9 % 12.1-15.4 H 788-0) PLT (test code = See_Comment L [Automated 777-3) message] The sy stem which generated this result transmitted reference range : 150 - 328 10*3/ ?L. The reference r ray was not used to interpret this result as normal/abnormal . MPV (test code = 12.4 fL 9.8-13.0 76048-9) NRBC/100 WBC (test See_Comment [Automat ed code = 8357028731) message] The system which generated this result transmitted reference range : 0.0 - 10.0 /100 WBCs. The refer ence range was not u sed to interpret th is result as normal/abnormal . NRBC x10^3 (test code <0.01 See_Comment [Auto mated = [id number]) message] The s ystem which generated this result transmitted reference range : 10*3/?L. The reference range was not used to interpret this result as normal/abnormal . GRAN MAT (NEUT) % 81.7 % (test code = 770-8) IMM GRAN % (test code 0.20 % = 1148570020) LYMPH % (test code = 8.4 % 736-9) MONO % (test code = 8.9 % 5905-5) EOS % (test code = 0.4 % 713-8) BASO % (test code = 0.4 % 706-2) GRAN MAT x10^3(ANC) 6.60 10*3/uL 1.99-6.95 (test code = 7390368684) IMM GRAN x10^3 (test <0.03 0.00-0.06 code = 2339501067) LYMPH x10^3 (test code 0.68 10*3/uL 1.09-3.23 L = 731-0) MONO x10^3 (test code 0.72 10*3/uL 0.36-1.02 = 742-7) EOS x10^3 (test code = 0.03 10*3/uL 0.06-0.53 L 711-2) BASO x10^3 (test code 0.03 10*3/uL 0.01-0.09 = 704-7) Lab Interpretation Abnormal (test code = 36573-1) [facility] [id number] 08:34:36 Test Item Value Reference Range Interpretation Comments LACTIC ACID (test code = 1.56 mmol/L 0.50-2.20 QUE S [id number]) Lab Interpretation (test code = Normal 35435-6) [facility] [id number] 06:13:05 Test Item Value Reference Range Interpretation Comments FREE T4 (test code = See_Comment [Autom ated message] 6139656677) The system [employer] generated this result transmitted ref erence range: 0.78 - 2 .20 ng/dL:. The ref erence range was not u sed to interpret this result as normal/abnor mal. Lab Interpretation (test Normal code = 25739-4) [facility] ClinicTHYROID STIMULATING [id number] 04:41:53 Test Item Value Reference Range Interpretation Comments TSH (test code = See_Comment H Biotin has been 4384672099) reported to cau se a negative bias, interpret resul ts relative to pat candi's use of biotin. [Automated mess age] The system [employer] generated this result transmitted ref erence range: 0.45 - 4 .70 mIU/L. The refe rence range was not u sed to interpret this result as normal/abnor mal. Lab Interpretation (test Abnormal code = 79029-0) [facility] ClinicPhosphorus [id number] 03:30:28 Test Item Value Reference Range Interpretation Comments PHOSPHORUS (test code = 0388252631) 5.0 mg/dL 2.5-5.0 Lab Interpretation (test code = Normal 54978-1) [facility] (NA, K, CL, CO2, GLUCOSE, BUN, CREATININE, CA)2021-12-07 03:30:28 Test Item Value Reference Range Interpretation Comments NA (test code = 139 mmol/L 135-145 2291453596) K (test code = 3.7 mmol/L 3.5-5.0 4061420115) CL (test code = 105 mmol/L 98-108 7146078281) CO2 TOTAL (test code = 23 mmol/L 23-31 0831314930) AGAP (test code = 2-16 5745596696) BUN (test code = 53 mg/dL 7-23 H 2304993626) GLUCOSE (test code = 82 mg/dL 70-110 6395400992) CREATININE (test code = 5.48 mg/dL 0.60-1.25 H 0137783800) CALCIUM (test code = 8.2 mg/dL 8.6-10.6 L 4548625084) eGFR (test code = mL/min/1.73m2 2168527483) GIBRAN (test code = GIBRAN) Association of Glomerular Filtration Rate (GFR) and Staging of Kidney Disease* + --+ --+ ------+| GFR (mL/min/1.73 m2) ?| With Kidney Damage ?| ?Without Kidney Damage+ --------+ --------+ +| ?>90 ?| ?Stage one ?| ? Normal ?+ ---+ ---+ -------+| ?60-89 ?| ?Stage two ?| ? Decreased GFR ? + --+ --+ ------+| ?30-59 ?| ?Stage three ?| ? Stage three ? + --+ --+ ------+| ?15-29 ?| ?Stage four ? | ? Stage four ?+ ---+ ---+ -------+| ?<15 (or dialysis) ? ?| ?Stage five ? | ? Stage five ?+ ---+ ---+ -------+ *Each stage assumes the associated GFR level has been in effect for at least three months. ?Stages 1 to 5, with or without kidney disease, indicate chronic kidney disease. Notes: Determination of stages one and two (with eGFR >59mL/min/1.73 m2) requires estimation of kidney damage for at least three months as defined by structural or functional abnormalities of the kidney, manifested by either:Pathological abnormalities or Markers of kidney damage (including abnormalities in the composition of the blood or urine or abnormalities in imaging tests). Lab Interpretation Abnormal (test code = 45438-8) [facility] ClinicSEDIMENTATION [id number] 03:20:06 Test Item Value Reference Range Interpretation Comments ESR (test code = See_Comment [Automated message] 4576140398) The system [employer] generated this result transmitted ref erence range: 0 - 10 m m/HR. The reference r ray was not used to interpret this result as normal/abnor mal. Lab Interpretation (test Normal code = 80758-2) [facility] ClinicGLYCOSYLATED HEMOGLOBIN (A1C)2021-12-07 01:43:01 Test Item Value Reference Range Interpretation Comments HGB A1C (test code = 4.2 % 4.0-5.7 4548-4) GIBRAN (test code = GIBRAN) Reference RangesNormal: <5.7%Prediabetes: 5.7 - 6.4%Diabetes: > 6.5% Lab Interpretation (test Normal code = 41235-6) [facility] ClinicPOCT GLUCOSE (AUTOMATED)2021-12-06 22:23:27 Test Item Value Reference Range Interpretation Comments POCT GLU (test code = 9686674226) 86 mg/dL 70-110 Lab Interpretation (test code = Normal 76561-8) [facility] ClinicETHANOL2022-05-31 15:31:30 Test Item Value Reference Range Interpretation Comments ALCOHOL (test code = <10 mg/dL 5643559167) GIBRAN (test code = GIBRAN) <10 Yeaeajxt93-563 Toxic>100 Depression of JUDICIAL ASSISTANT>400 Fatalities Reported [facility] ClinicAMMONIA, [id number] 15:31:25 Test Item Value Reference Range Interpretation Comments AMMONIA (test code = 3058131541) <9 9-33 L Lab Interpretation (test code = Abnormal 55948-1) [facility] ClinicCOMP. METABOLIC PANEL (77842)2021-12-06 15:19:30 Test Item Value Reference Range Interpretation Comments NA (test code = 139 mmol/L 135-145 5278895217) K (test code = 3.8 mmol/L 3.5-5.0 8220739382) CL (test code = 104 mmol/L 98-108 9370754657) CO2 TOTAL (test code = 22 mmol/L 23-31 L 9921487134) AGAP (test code = 2-16 3797273987) BUN (test code = 49 mg/dL 7-23 H 2343961728) GLUCOSE (test code = 111 mg/dL 70-110 H 3429781789) CREATININE (test code = 4.70 mg/dL 0.60-1.25 H 3250021417) TOTAL BILI (test code = 1.2 mg/dL 0.1-1.1 H 8716305860) CALCIUM (test code = 8.2 mg/dL 8.6-10.6 L 3483298726) T PROTEIN (test code = 6.9 g/dL 6.3-8.2 0197214939) ALBUMIN (test code = 3.5 g/dL 3.5-5.0 6831015257) ALK PHOS (test code = 87 U/L 34-122 9716299222) ALTv (test code = 23 U/L 5-50 1742-6) AST(SGOT) (test code = 40 U/L 13-40 0140258699) eGFR (test code = mL/min/1.73m2 7900676322) GIBRAN (test code = GIBRAN) Association of Glomerular Filtration Rate (GFR) and Staging of Kidney Disease* + --+ --+ ------+| GFR (mL/min/1.73 m2) ?| With Kidney Damage ?| ?Without Kidney Damage+ --------+ --------+ +| ?>90 ?| ?Stage one ?| ? Normal ?+ ---+ ---+ -------+| ?60-89 ?| ?Stage two ?| ? Decreased GFR ? + --+ --+ ------+| ?30-59 ?| ?Stage three ?| ? Stage three ? + --+ --+ ------+| ?15-29 ?| ?Stage four ? | ? Stage four ?+ ---+ ---+ -------+| ?<15 (or dialysis) ? ?| ?Stage five ? | ? Stage five ?+ ---+ ---+ -------+ *Each stage assumes the associated GFR level has been in effect for at least three months. ?Stages 1 to 5, with or without kidney disease, indicate chronic kidney disease. Notes: Determination of stages one and two (with eGFR >59mL/min/1.73 m2) requires estimation of kidney damage for at least three months as defined by structural or functional abnormalities of the kidney, manifested by either:Pathological abnormalities or Markers of kidney damage (including abnormalities in the composition of the blood or urine or abnormalities in imaging tests). Lab Interpretation Abnormal (test code = 36603-3) [facility] ClinicACTIVATED PARTIAL THRMPLAS [id number] 15:17:09 Test Item Value Reference Range Interpretation Comments APTT Patient (test See_Comment [Automat ed code = 3173-2) message] The system which generated this result transmitted reference range : 23 - 38 Seconds . The reference range was not used to interpr et this result as normal/abnormal . GIBRAN (test code = GIBRAN) The [facility] patient population mean normal value for aPTT is 30 seconds. Lab Interpretation Normal (test code = 62654-1) [facility] ClinicPROTHROMBIN TIME / [id number] 15:14:52 Test Item Value Reference Range Interpretation Comments PROTIME PATIENT (test See_Comment [Auto mated message] code = 5964-2) The system wh ich generated this result transmitted ref erence range: 12.0 - 1 4.7 Seconds. The re ference range was not u sed to interpret this result as normal/abnor mal. INR (test code = 6301-6) Nor mal INR <1.1; Warfarin Therap eutic range 2.0 to 3. 0 or 2.5 to 3.5, dep ending upon the indica tions. Lab Interpretation (test Normal code = 88107-2) [facility] ClinicCBC WITH [id number] 15:13:52 Test Item Value Reference Range Interpretation Comments WBC (test code = See_Comment [Automated 5590-2) message] The sy stem which generated this result transmitted reference range : 4.20 - 10.70 10*3/?L. The reference range was not used to interpret this result as normal/abnormal . RBC (test code = See_Comment L [Automated 109-8) message] The sy stem which generated this result transmitted reference range : 4.26 - 5.52 10*6/?L. The reference range was not used to interpret this result as normal/abnormal . HGB (test code = 10.8 g/dL 12.2-16.4 L 718-7) HCT (test code = 33.6 % 38.4-49.3 L 4544-3) MCV (test code = 95.7 fL 81.7-95.6 H 787-2) MCH (test code = 30.8 pg 26.1-32.7 785-6) MCHC (test code = 32.1 g/dL 31.2-35.0 786-4) RDW-SD (test code = 54.0 fL 38.5-51.6 H 54226-7) RDW-CV (test code = 15.6 % 12.1-15.4 H 788-0) PLT (test code = See_Comment L [Automated 777-3) message] The sy stem which generated this result transmitted reference range : 150 - 328 10*3/ ?L. The reference r ray was not used to interpret this result as normal/abnormal . MPV (test code = 12.0 fL 9.8-13.0 48531-6) IPF % (test code = 6.0 % 1.2-10.7 Platelet count 9617820268) measured by fluorescence method. NRBC/100 WBC (test See_Comment [Automat ed code = 4007889182) message] The system which generated this result transmitted reference range : 0.0 - 10.0 /100 WBCs. The refer ence range was not u sed to interpret th is result as normal/abnormal . NRBC x10^3 (test code <0.01 See_Comment [Auto mated = 1367131653) message] The s ystem which generated this result transmitted reference range : 10*3/?L. The reference range was not used to interpret this result as normal/abnormal . GRAN MAT (NEUT) % 78.9 % (test code = 770-8) IMM GRAN % (test code 0.40 % = 5197349811) LYMPH % (test code = 10.6 % 736-9) MONO % (test code = 9.2 % 5905-5) EOS % (test code = 0.4 % 713-8) BASO % (test code = 0.5 % 706-2) GRAN MAT x10^3(ANC) 7.29 10*3/uL 1.99-6.95 H (test code = 2772632468) IMM GRAN x10^3 (test 0.04 10*3/uL 0.00-0.06 code = 4069606337) LYMPH x10^3 (test code 0.98 10*3/uL 1.09-3.23 L = 731-0) MONO x10^3 (test code 0.85 10*3/uL 0.36-1.02 = 742-7) EOS x10^3 (test code = 0.04 10*3/uL 0.06-0.53 L 711-2) BASO x10^3 (test code 0.05 10*3/uL 0.01-0.09 = 704-7) Lab Interpretation Abnormal (test code = 72377-6) [facility] [Presence] in Respiratory specimen by KARLA with probe [id number] 01:15:44 Test Item Value Reference Range Interpretation Comments SARS-CoV-2 (COVID-19) RNA Not detected [Presence] in Respiratory specimen by KARLA with probe detection (test code = 30759-2) Whether patient is employed in a Unknown healthcare setting (test code = 78439-8) Whether the patient has symptoms Unknown related to condition of interest (test code = 74908-2) Whether the patient was Unknown hospitalized for condition of interest (test code = 55890-7) Whether the patient was admitted Unknown to intensive care unit (ICU) for condition of interest (test code = 78307-4) Whether patient resides in a Unknown congregate care setting (test code = 58072-4) status (test code = Unknown 34534-4) Date and time of symptom onset Unknown (test code = 18951-7) SARS-CoV-2 (COVID-19) RNA [Presence] in Respiratory specimen by KARLA with probe [id number] 13:04:07 Test Item Value Reference Range Interpretation Comments SARS-CoV-2 (COVID-19) RNA Not detected [Presence] in Respiratory specimen by KARLA with probe detection (test code = 62336-6) Whether patient is employed in a Unknown healthcare setting (test code = 33660-9) Whether the patient has symptoms Unknown related to condition of interest (test code = 33576-6) Whether the patient was Unknown hospitalized for condition of interest (test code = 62003-6) Whether the patient was admitted Unknown to intensive care unit (ICU) for condition of interest (test code = 22100-7) Whether patient resides in a Unknown congregate care setting (test code = 82987-3) status (test code = Unknown 23920-6) Date and time of symptom onset Unknown (test code = 70742-7) POCT-GLUCOSE [id number] 10:40:37 Test Item Value Reference Range Interpretation Comments POC-GLUCOSE METER 71 mg/dL 70-110 : TESTED A T [facility] (BEAKER) (test code = [address] B 1538) [facility] 7703 0: Durable Medical Equipment Technician/Techni akash ID = [id number] for HUSSAIN ARELLANO SARS-CoV-2 (COVID-19) RNA [Presence] in Respiratory specimen by KARLA with probe [id number] 19:07:22 Test Item Value Reference Range Interpretation Comments SARS-CoV-2 (COVID-19) RNA Not detected Not-Detected [Presence] in Respiratory specimen by KARLA with probe detection (test code = 68578-4) BLOOD [id number] 21:00:00 Test Item Value Reference Range Interpretation Comments CULTURE (BEAKER) (test No growth in 5 days code = 1095) BLOOD [id number] 21:00:00 Test Item Value Reference Range Interpretation Comments CULTURE (BEAKER) (test No growth in 5 days code = 1095) POCT-GLUCOSE [id number] 15:46:00 Test Item Value Reference Range Interpretation Comments POC-GLUCOSE METER 142 mg/dL 70-110 H : TESTED A T [facility] 6720 (BEAKER) (test code = JANIS Campos [facility], 1538) [address]: Durable Medical Equipment Technician/Techni akash ID = [id number] for MICHAEL CHATMANAshlee ADRIANA POCT-GLUCOSE [id number] 12:29:00 Test Item Value Reference Range Interpretation Comments POC-GLUCOSE METER 149 mg/dL 70-110 H : TESTED A T [facility] 6720 (BEAKER) (test code SILVA [facility], = 1538) [address]: Durable Medical Equipment Technician/Techni akash ID = [id number] for JOSE COPELAND SPUTUM CULTURE + GRAM [id number] 11:37:00 Test Item Value Reference Range Interpretation Comments CULTURE (BEAKER) 4+ Normal respiratory (test code = 1095) melvin present GRAM STAIN RESULT 2+ WBCs (BEAKER) (test code = 1123) GRAM STAIN RESULT 3+ gram positive cocci (BEAKER) (test code = in chains and pairs 96820) POCT-GLUCOSE [id number] 08:29:00 Test Item Value Reference Range Interpretation Comments POC-GLUCOSE METER 140 mg/dL 70-110 H : TESTED A T [facility] 6720 (BEAKER) (test code SILVA [facility], = 1538) [address]: Durable Medical Equipment Technician/Techni akash ID = [id number] for BEN PHILLIPS BASIC METABOLIC [id number] 07:13:00 Test Item Value Reference Range Interpretation Comments SODIUM (BEAKER) 131 meq/L 136-145 L (test code = 381) POTASSIUM (BEAKER) 4.5 meq/L 3.5-5.1 (test code = 379) CHLORIDE (BEAKER) 101 meq/L 98-107 (test code = 382) CO2 (BEAKER) (test 22 meq/L 22-29 code = 355) BLOOD UREA NITROGEN 43 mg/dL 7-21 H (BEAKER) (test code = 354) CREATININE (BEAKER) 5.32 mg/dL 0.57-1.25 H (test code = 358) GLUCOSE RANDOM 85 mg/dL 70-105 (BEAKER) (test code = 652) CALCIUM (BEAKER) 7.9 mg/dL 8.4-10.2 L (test code = 697) EGFR (BEAKER) (test 13 mL/min/1.73 ESTIMA SIRENA GFR IS code = 1092) sq m NOT ACCURATE CREATININE CLEARANCE IN PREDICTING GLOMERULAR FILTRATION RATE . ESTIMATED GFR I S NOT APPLICABLE FOR DIALYSIS PATIEN TS. Durable Medical Equipment Technician ID - [id number] 07:04:00 Test Item Value Reference Range Interpretation Comments PHOSPHORUS (BEAKER) (test code = 4.0 mg/dL 2.3-4.7 604) Durable Medical Equipment Technician ID - [id number] 07:04:00 Test Item Value Reference Range Interpretation Comments MAGNESIUM (BEAKER) (test code = 2.2 mg/dL 1.6-2.6 627) Durable Medical Equipment Technician ID - [id number] (HEMOGRAM ONLY)2020-03-18 05:55:00 Test Item Value Reference Range Interpretation Comments WHITE BLOOD CELL COUNT 9.2 K/ L 3.5-10.5 (BEAKER) (test code = 775) RED BLOOD CELL COUNT 3.39 M/ L 4.63-6.08 L (BEAKER) (test code = 761) HEMOGLOBIN (BEAKER) 10.2 GM/DL 13.7-17.5 L (test code = 410) HEMATOCRIT (BEAKER) 33.4 % 40.1-51.0 L (test code = 411) MEAN CORPUSCULAR 98.5 fL 79.0-92.2 H Discordant MCV VOLUME (BEAKER) (test result compared to code = 753) previous result ; clinical correl ation required. MEAN CORPUSCULAR 30.1 pg 25.7-32.2 HEMOGLOBIN (BEAKER) (test code = 751) MEAN CORPUSCULAR 30.5 GM/DL 32.3-36.5 L HEMOGLOBIN CONC (BEAKER) (test code = 752) RED CELL DISTRIBUTION 13.1 % 11.6-14.4 WIDTH (BEAKER) (test code = 412) PLATELET COUNT 156 K/CU MM 150-450 (BEAKER) (test code = 756) MEAN PLATELET VOLUME 11.1 fL 9.4-12.4 (BEAKER) (test code = 754) NUCLEATED RED BLOOD 0 /100 WBC 0-0 CELLS (BEAKER) (test code = 413) POCT-GLUCOSE [id number] 04:48:00 Test Item Value Reference Range Interpretation Comments POC-GLUCOSE METER 73 mg/dL 70-110 : TESTED A T [facility] 6720 (BEAKER) (test code = JANIS MARTINEZ [place], 1538) [address]: Durable Medical Equipment Technician/Techni akash ID = [id number] for MEL RESENDIZ RAD, CHEST, 1 VIEW, NON [id number] 04:26:00Reason for exam:- >pneumoniaShould this be performed at the bedside?->YesFINAL REPORT CLINICAL INDICATION: Pneumonia Comparison: 03/17/2020 The cardiomediastinal contours are stable. Central pulmonary vascular congestion and bilateral parenchymal and pleural opacities are unchanged. There is no pneumothorax. A tunneled right IJ dialysis catheter is inplace. Signed: Pooja Ramires MDReport Verified Date/Time: 03/18/2020 04:26:30 Electronically s igned by: POOJA RAMIRES M.D. on 03/18/2020 04:26 AMPOCT-GLUCOSE METER 2020-03-17 21:18:00 Test Item Value Reference Range Interpretation Comments POC-GLUCOSE METER 67 mg/dL 70-110 L : [facility] (test code = [facility], 1538) [address]: Durable Medical Equipment Technician/Techni akash ID = [id number] for ROSA REYES POCT-GLUCOSE [id number] 18:03:00 Test Item Value Reference Range Interpretation Comments POC-GLUCOSE METER 45 mg/dL 70-110 L : [facility]) (test code = [facility], 1538) [address]: Durable Medical Equipment Technician/Techni akash ID = [id number] for JOSE COPELAND [id number] 15:17:00 Test Item Value Reference Range Interpretation Comments ACTIVATED CLOTTING TIME 301 sec : 74 -137 seconds, (BEAKER) (test code = Baseli ne: TESTED AT 441) [facility] [address] [facility], 770 30: Durable Medical Equipment Technician/Techni akash ID = [id number] for RANGEL MARIA POCT-GLUCOSE [id number] 07:55:00 Test Item Value Reference Range Interpretation Comments POC-GLUCOSE METER 82 mg/dL 70-110 : [facility]) (test code = [facility], 1538) [address]: Durable Medical Equipment Technician/Techni akash ID = [id number] for DANIELLE GARLAND SARS-COV2/RT-PCR ([facility])2020-03-17 06:54:00 Test Item Value Reference Range Interpretation Comments SARS-COV2/RT-PCR (test Negative Not Detected, Negative, code = 0567370) See external report for linked test SARS-COV-2 PERFORMING LAB [facility] (test code = 5440560) Negative result for this test determines that SARS-CoV-2 RNA was not present in the specimen above the Limit of Detection (LOD). However, Negative results do not preclude SARS-CoV-2 infection and should not be used as the sole basis for treatment or patient management decisions. Negative results mustbe combined with clinical observations, patient history, and epidemiological information. A false negative result may occur if a specimen is improperly collected, transported or handled. A false negative result should be considered if patient's recent exposures or clinical presentation indicate that COVID-19 (SARS-CoV-2) is likely and diagnostic tests for other causes of illness are negative. Re-testing should be considered in cases of suspected false negatives.The limit of detection for this assay is 800 copies/mL.This SARS CoV-2 test is a real-time RT-PCR test intended for the qualitative detection of nucleic acid from SARS-CoV-2 in a nasopharyngeal swab specimen collected from individuals suspected of COVID-19 by their healthcare provider.This test has not been Food and Drug Administration (FDA) cleared or approved. This is a modified version of an approved Emergency Use Authorization (EUA) and is in the process of review by the FDA. Once authorized by the FDA, the issued EUA will be effective until the declaration that circumstances exist justifying the authorization of the emergency use of in vitro diagnostic tests for detection and/or diagnosis of COVID-19 is terminated under Section 564(b)(2) of the Act or the EUA is revoked under Section 564(g) of the Act.Fact Sheet for Healthcare Providers:https://www.[employer].com/sites/default/files/product/documents/Fact_Shee e_UE_Vyhnpquqo_Didi_MVSD-HiO-8.pdfFact Sheet for Healthcare Patients:https://www.[employer].com/sites/default/files/product/ documents/Chbt_Hhxve_Ycbrsyvn_Xgba_WBJT-BoK-9.pdfPerforming Laboratory:[facility], [place] [address]XTXFBYNDTC A1C 2020-03-17 06:14:00 Test Item Value Reference Range Interpretation Comments HEMOGLOBIN A1C (BEAKER) (test code = 3.9 % 4.3-6.1 L 368) [id number] 05:23:00 Test Item Value Reference Range Interpretation Comments PHOSPHORUS (BEAKER) (test code = 4.3 mg/dL 2.3-4.7 604) Durable Medical Equipment Technician ID - LYNETTE [id number] 05:23:00 Test Item Value Reference Range Interpretation Comments MAGNESIUM (BEAKER) (test code = 2.1 mg/dL 1.6-2.6 627) Durable Medical Equipment Technician ID - LYNETTE LBASIC METABOLIC [id number] 05:23:00 Test Item Value Reference Range Interpretation Comments SODIUM (BEAKER) 135 meq/L 136-145 L (test code = 381) POTASSIUM (BEAKER) 3.9 meq/L 3.5-5.1 (test code = 379) CHLORIDE (BEAKER) 102 meq/L 98-107 (test code = 382) CO2 (BEAKER) (test 25 meq/L 22-29 code = 355) BLOOD UREA NITROGEN 26 mg/dL 7-21 H (BEAKER) (test code = 354) CREATININE (BEAKER) 4.05 mg/dL 0.57-1.25 H (test code = 358) GLUCOSE RANDOM 84 mg/dL 70-105 (BEAKER) (test code = 652) CALCIUM (BEAKER) 8.0 mg/dL 8.4-10.2 L (test code = 697) EGFR (BEAKER) (test 18 mL/min/1.73 ESTIMA SIRENA GFR IS code = 1092) sq m NOT ACCURATE CREATININE CLEARANCE IN PREDICTING GLOMERULAR FILTRATION RATE . ESTIMATED GFR I S NOT APPLICABLE FOR DIALYSIS PATIEN TS. Durable Medical Equipment Technician ID - LYNETTE [id number] 05:07:00 Test Item Value Reference Range Interpretation Comments PARTIAL THROMBOPLASTIN TIME 42.1 seconds 22.5-36.0 H (BEAKER) (test code = 760) RAD, CHEST, 1 VIEW, NON [id number] 04:11:00Reason for exam:- >pneumoniaShould this be performed at the bedside?->YesFINAL REPORT CLINICAL INDICATION: Pneumonia Comparison: 03/16/2020 The cardiomediastinal contours are stable. The lung volumes are stable after extubation. Central pulmonary vascular prominence and bilateral parenchymal and pleural opacities are unchanged. There is no pneumothorax. A tunneled right IJ dialysis catheter remains in place. Signed: Ramires, Pooja MDReport Verified Awais e/Time: 03/17/2020 04:11:10 VANCOMYCIN LEVEL, [id number] 21:30:00 Test Item Value Reference Range Interpretation Comments VANCOMYCIN RANDOM (BEAKER) (test 8.5 ug/mL code = 523) Reference Range: No NormalsOperator ID - [id number] 21:28:00 Test Item Value Reference Range Interpretation Comments PARTIAL THROMBOPLASTIN TIME 107.1 seconds 22.5-36.0 H (BEAKER) (test code = 760) [id number] 18:37:00 Test Item Value Reference Range Interpretation Comments PARTIAL THROMBOPLASTIN TIME > seconds 22.5-36.0 HH (BEAKER) (test code = 760) LACTIC ACID, [id number] 18:23:00 Test Item Value Reference Range Interpretation Comments LACTATE BLOOD VENOUS 1.65 mmol/L 0.50-2.20 Specime n slightly (2) (BEAKER) (test hemolyzed code = 2872) Durable Medical Equipment Technician ID - BSPOCT-GLUCOSE [id number] 18:09:00 Test Item Value Reference Range Interpretation Comments POC-GLUCOSE METER 115 mg/dL 70-110 H : TESTED A T [facility] 6720 ([facility]) (test code = [facility], 1538) [address]: Durable Medical Equipment Technician/Techni akash ID = [id number] for FO X, ARPIT [id number] 17:26:00 Test Item Value Reference Range Interpretation Comments PARTIAL THROMBOPLASTIN TIME > seconds 22.5-36.0 HH (BEAKER) (test code = 760) POCT-GLUCOSE [id number] 12:48:00 Test Item Value Reference Range Interpretation Comments POC-GLUCOSE METER 115 mg/dL 70-110 H : TESTED A T [facility] 67[facility] ([facility]) (test code = [facility] [employer] [facility], 1538) [address]: Durable Medical Equipment Technician/Techni akash ID = [id number] for FO X, [place] [id number] 07:01:00 Test Item Value Reference Range Interpretation Comments PARTIAL THROMBOPLASTIN TIME 36.4 seconds 22.5-36.0 H (BEAKER) (test code = 760) [id number] 05:49:00 Test Item Value Reference Range Interpretation Comments PARTIAL THROMBOPLASTIN TIME 140.5 seconds 22.5-36.0 H (BEAKER) (test code = 760) TSH/FREE T4 IF [id number] 04:18:00 Test Item Value Reference Range Interpretation Comments THYROID STIMULATING HORMONE 0.644 uIU/mL 0.350-4.940 (BEAKER) (test code = 772) Durable Medical Equipment Technician ID - EDASIRAD, CHEST, 1 VIEW, NON [id number] 04:03:00Reason for exam:->pneumoniaShould this be performed at the bedside?->YesFINAL REPORT CLINICAL INDICATION: Support lines. Comparison: 03/15/2020 The cardiomediastinal contours are stable. Central pulmonary vascular congestion and bilateral parenchymal and pleural opacities are unchanged. There is no pneumothorax. An enteric tube overlies the left upper quadrant. Support lines are otherwise stable. Signed: Pooja Ramires MDReport Verified Date/Time: 03/16/2020 04:03:05 BASIC METABOLIC [id number] 03:45:00 Test Item Value Reference Range Interpretation Comments SODIUM (BEAKER) 133 meq/L 136-145 L (test code = 381) POTASSIUM (BEAKER) 4.5 meq/L 3.5-5.1 (test code = 379) CHLORIDE (BEAKER) 104 meq/L 98-107 (test code = 382) CO2 (BEAKER) (test 18 meq/L 22-29 L code = 355) BLOOD UREA NITROGEN 31 mg/dL 7-21 H (BEAKER) (test code = 354) CREATININE (BEAKER) 4.66 mg/dL 0.57-1.25 H (test code = 358) GLUCOSE RANDOM 138 mg/dL 70-105 H (BEAKER) (test code = 652) CALCIUM (BEAKER) 8.0 mg/dL 8.4-10.2 L (test code = 697) EGFR (BEAKER) (test 15 mL/min/1.73 ESTIMA SIRENA GFR IS code = 1092) sq m NOT ACCURATE CREATININE CLEARANCE IN PREDICTING GLOMERULAR FILTRATION RATE . ESTIMATED GFR I S NOT APPLICABLE FOR DIALYSIS PATIEN TS. Durable Medical Equipment Technician ID - LYNETTE [id number] 03:39:00 Test Item Value Reference Range Interpretation Comments PHOSPHORUS (BEAKER) (test code = 2.5 mg/dL 2.3-4.7 604) Durable Medical Equipment Technician ID - LYNETTE [id number] 03:39:00 Test Item Value Reference Range Interpretation Comments MAGNESIUM (BEAKER) (test code = 1.6 mg/dL 1.6-2.6 627) Durable Medical Equipment Technician ID - LYNETTE LCBC W/PLT COUNT & AUTO [id number] 03:31:00 Test Item Value Reference Range Interpretation Comments WHITE BLOOD CELL COUNT (BEAKER) 11.7 K/ L 3.5-10.5 H (test code = 775) RED BLOOD CELL COUNT (BEAKER) 4.01 M/ L 4.63-6.08 L (test code = 761) HEMOGLOBIN (BEAKER) (test code = 11.9 GM/DL 13.7-17.5 L 410) HEMATOCRIT (BEAKER) (test code = 36.5 % 40.1-51.0 L 411) MEAN CORPUSCULAR VOLUME (BEAKER) 91.0 fL 79.0-92.2 (test code = 753) MEAN CORPUSCULAR HEMOGLOBIN 29.7 pg 25.7-32.2 (BEAKER) (test code = 751) MEAN CORPUSCULAR HEMOGLOBIN CONC 32.6 GM/DL 32.3-36.5 (BEAKER) (test code = 752) RED CELL DISTRIBUTION WIDTH 12.9 % 11.6-14.4 (BEAKER) (test code = 412) PLATELET COUNT (BEAKER) (test 148 K/CU MM 150-450 L code = 756) MEAN PLATELET VOLUME (BEAKER) 12.0 fL 9.4-12.4 (test code = 754) NUCLEATED RED BLOOD CELLS 0 /100 WBC 0-0 (BEAKER) (test code = 413) NEUTROPHILS RELATIVE PERCENT 84 % (BEAKER) (test code = 429) LYMPHOCYTES RELATIVE PERCENT 7 % (BEAKER) (test code = 430) MONOCYTES RELATIVE PERCENT 9 % (BEAKER) (test code = 431) EOSINOPHILS RELATIVE PERCENT 0 % (BEAKER) (test code = 432) BASOPHILS RELATIVE PERCENT 0 % (BEAKER) (test code = 437) NEUTROPHILS ABSOLUTE COUNT 9.82 K/ L 1.78-5.38 H (BEAKER) (test code = 670) LYMPHOCYTES ABSOLUTE COUNT 0.84 K/ L 1.32-3.57 L (BEAKER) (test code = 414) MONOCYTES ABSOLUTE COUNT (BEAKER) 1.02 K/ L 0.30-0.82 H (test code = 415) EOSINOPHILS ABSOLUTE COUNT 0.00 K/ L 0.04-0.54 L (BEAKER) (test code = 416) BASOPHILS ABSOLUTE COUNT (BEAKER) 0.02 K/ L 0.01-0.08 (test code = 417) IMMATURE GRANULOCYTES-RELATIVE 0 % 0-1 PERCENT (BEAKER) (test code = 2801) [id number] 03:29:00 Test Item Value Reference Range Interpretation Comments PARTIAL THROMBOPLASTIN TIME 118.4 seconds 22.5-36.0 H (BEAKER) (test code = 760) RAD, ABDOMEN/KUB, 1 VIEW [id number] 20:55:00Reason for exam:->feeding tube placementFINAL REPORT RAD, ABDOMEN/KUB, 1 VIEW AP CLINICAL HISTORY: feeding tube placement TECHNIQUE: RAD, ABDOMEN/KUB, 1 VIEW AP COMPARISON: None IMPRESSION:NG/OG tube tip overlies the gastric fundus.The bowel gas pattern is nonspecific/nonobstructive. Supine imaging limits diagnostic se nsitivity for detection of free air. Right femoral catheter. Moderate volume retained fecal matter. Vascular calcifications present. Right greater than left pleural effusions and basilar opacities present. Signed: Leonel Davis MDReport Verified Date/Time: 03/15/2020 20:55:04 VANCOMYCIN LEVEL, RANDOM 2020-03-15 20:45:00 Test Item Value Reference Range Interpretation Comments VANCOMYCIN RANDOM (BEAKER) (test code < ug/mL = 523) Reference Range: No NormalsOperator ID - DBLACTIC ACID, [id number] 20:39:00 Test Item Value Reference Range Interpretation Comments LACTATE BLOOD VENOUS 2.55 mmol/L 0.50-2.20 H Specime n slightly (2) (BEAKER) (test hemolyzed code = 2872) Durable Medical Equipment Technician ID - [id number] 19:01:00 Test Item Value Reference Range Interpretation Comments ACTIVATED CLOTTING TIME 153 sec : 74 -137 seconds, (BEAKER) (test code = Baseli ne: TESTED AT 441) [facility] [address] [place], [address]: Durable Medical Equipment Technician/Techni akash ID = [id number] for DONTE WHEAT [id number] 17:46:00 Test Item Value Reference Range Interpretation Comments PROCALCITONIN (BEAKER) (test code 1.44 ng/mL <0.05 H = 3036) SEPSIS RISK (ng/mL)Low: 0.05-0.50Intermediate: 0.51-2.00High: >=2.01BASIC METABOLIC [id number] 17:40:00 Test Item Value Reference Range Interpretation Comments SODIUM (BEAKER) 133 meq/L 136-145 L (test code = 381) POTASSIUM (BEAKER) 4.5 meq/L 3.5-5.1 Specimen moderately (test code = 379) hemolyzed CHLORIDE (BEAKER) 103 meq/L 98-107 (test code = 382) CO2 (BEAKER) (test 22 meq/L 22-29 code = 355) BLOOD UREA NITROGEN 24 mg/dL 7-21 H (BEAKER) (test code = 354) CREATININE (BEAKER) 3.99 mg/dL 0.57-1.25 H Specimen moderately (test code = 358) hemolyzed GLUCOSE RANDOM 128 mg/dL 70-105 H (BEAKER) (test code = 652) CALCIUM (BEAKER) 7.5 mg/dL 8.4-10.2 L (test code = 697) EGFR (BEAKER) (test 18 mL/min/1.73 ESTIMA SIRENA GFR IS code = 1092) sq m NOT ACCURATE CREATININE CLEARANCE IN PREDICTING GLOMERULAR FILTRATION RATE . ESTIMATED GFR I S NOT APPLICABLE FOR DIALYSIS PATIEN TS. Durable Medical Equipment Technician ID - DBCOMPREHENSIVE METABOLIC [id number] 16:54:00 Test Item Value Reference Range Interpretation Comments TOTAL PROTEIN 7.1 gm/dL 6.0-8.3 (BEAKER) (test code = 770) ALBUMIN (BEAKER) 3.1 g/dL 3.5-5.0 L (test code = 1145) ALKALINE PHOSPHATASE 79 U/L 40-150 (BEAKER) (test code = 346) BILIRUBIN TOTAL 1.1 mg/dL 0.2-1.2 (BEAKER) (test code = 377) SODIUM (BEAKER) (test 136 meq/L 136-145 code = 381) POTASSIUM (BEAKER) 3.8 meq/L 3.5-5.1 (test code = 379) CHLORIDE (BEAKER) 103 meq/L 98-107 (test code = 382) CO2 (BEAKER) (test 20 meq/L 22-29 L code = 355) BLOOD UREA NITROGEN 23 mg/dL 7-21 H (BEAKER) (test code = 354) CREATININE (BEAKER) 4.05 mg/dL 0.57-1.25 H (test code = 358) GLUCOSE RANDOM 160 mg/dL 70-105 H (BEAKER) (test code = 652) CALCIUM (BEAKER) 7.8 mg/dL 8.4-10.2 L (test code = 697) AST (SGOT) (BEAKER) 39 U/L 5-34 H (test code = 353) ALT (SGPT) (BEAKER) 16 U/L 6-55 (test code = 347) EGFR (BEAKER) (test 18 mL/min/1.73 ESTIMA SIRENA GFR IS code = 1092) sq m NOT ACCURATE CREATININE CLEARANCE IN PREDICTING GLOMERULAR FILTRATION RATE . ESTIMATED GFR I S NOT APPLICABLE FOR DIALYSIS PATIEN TS. Durable Medical Equipment Technician ID - DBLACTIC ACID, [id number] 16:35:00 Test Item Value Reference Range Interpretation Comments LACTATE BLOOD VENOUS (2) (BEAKER) 3.75 mmol/L 0.50-2.20 H (test code = 2872) Durable Medical Equipment Technician ID - DBTROPONIN [id number] 16:19:00 Test Item Value Reference Range Interpretation Comments TROPONIN I (BEAKER) (test code = 0.65 ng/mL 0.00-0.03 [facility]) Troponin I (TnI) levels must be interpreted [...] failure, acidosis, acute neurological disease, and persistent tachyarrhythmia.Durable Medical Equipment Technician ID - AAHAMIDB-TYPE NATRIURETIC FACTOR (BNP)2020-03-15 16:08:00 Test Item Value Reference Range Interpretation Comments B-TYPE NATRIURETIC PEPTIDE (BEAKER) 621 pg/mL 0-100 H (test code = 700) Durable Medical Equipment Technician ID - AAHAMIDPROTHROMBIN TIME/[id number] 15:53:00 Test Item Value Reference Range Interpretation Comments PROTIME (BEAKER) (test code = 14.2 seconds 11.9-14.2 759) INR (BEAKER) (test code = 370) 1.13 <=5.90 Effective 12/04/2018: PT Reference Range ChangeNew: 11.9-14.2 Previous: 11.7- 14.7RECOMMENDED COUMADIN/WARFARIN INR THERAPY RANGESSTANDARD DOSE: 2.0-3.0 Includes: PROPHYLAXIS for venous thrombosis, systemic embolization; TREATMENT for venous thrombosis and/or pulmonary embolus.HIGH RISK: Target INR is2.5-3.5 for patients wiht mechanical heart valves.RAD, CHEST, 1 VIEW, NON [id number] 15:52:00Reason for exam:->intubationShould this be performed at the bedside?->YesFINAL REPORT RAD, CHEST, 1 VIEW, NON DEPT CLINICAL INDICATION: intubation TECHNIQUE: AP view of the chest COMPARISON: Radiograph 05/25/2017 FINDINGS: ET tube terminates 4.4 cm above the valarie. Right IJ central venous catheter terminates at the level of the mid SVC. Left- sided AICD with single lead terminating in the right ventricle. Sternotomy wires and mediastinal surgical clips are noted. There are bilateral small pleural effusions, right greater than left. No focal consolidation or pneumothorax. Cardiomediastinal silhouette, jose de jesus, and pulmonary vasculature are unchanged. P rominent aortic knob calcifications. Left coronary arterial calcification or stent. No acute osseousabnormalities. IMPRESSION:ET tube terminates 4.4 cm above the valarie.Small bilateral pleural effusions. Signed: Lyn Hernandez Verified Date/Time: 03/15/2020 15:52:55 BLOOD GAS, [id number] 15:50:00 Test Item Value Reference Range Interpretation Comments PH VENOUS (BEAKER) (test code = 7.38 7.32-7.42 701) PCO2 VENOUS (BEAKER) (test code = 35 mmHg 41-51 L 755) PO2 VENOUS (BEAKER) (test code = 36 mmHg 25-40 702) O2 SATURATION VENOUS (BEAKER) 69.5 % 40.0-70.0 (test code = 703) HCO3 VENOUS (BEAKER) (test code = 21 mmol/L 21-29 705) BASE EXCESS VENOUS (BEAKER) (test -4.1 mmol/L -2.0-3.0 L code = 704) PATIENT TEMPERATURE (BEAKER) 36.5 C (test code = 1818) FIO2 (BEAKER) (test code = 1819) 60.0 % CBC W/PLT COUNT & AUTO [id number] 15:32:00 Test Item Value Reference Range Interpretation Comments WHITE BLOOD CELL COUNT (BEAKER) 11.5 K/ L 3.5-10.5 H (test code = 775) RED BLOOD CELL COUNT (BEAKER) 4.28 M/ L 4.63-6.08 L (test code = 761) HEMOGLOBIN (BEAKER) (test code = 12.7 GM/DL 13.7-17.5 L 410) HEMATOCRIT (BEAKER) (test code = 40.4 % 40.1-51.0 411) MEAN CORPUSCULAR VOLUME (BEAKER) 94.4 fL 79.0-92.2 H (test code = 753) MEAN CORPUSCULAR HEMOGLOBIN 29.7 pg 25.7-32.2 (BEAKER) (test code = 751) MEAN CORPUSCULAR HEMOGLOBIN CONC 31.4 GM/DL 32.3-36.5 L (BEAKER) (test code = 752) RED CELL DISTRIBUTION WIDTH 13.0 % 11.6-14.4 (BEAKER) (test code = 412) PLATELET COUNT (BEAKER) (test 158 K/CU MM 150-450 code = 756) MEAN PLATELET VOLUME (BEAKER) 11.6 fL 9.4-12.4 (test code = 754) NUCLEATED RED BLOOD CELLS 0 /100 WBC 0-0 (BEAKER) (test code = 413) NEUTROPHILS RELATIVE PERCENT 87 % (BEAKER) (test code = 429) LYMPHOCYTES RELATIVE PERCENT 4 % (BEAKER) (test code = 430) MONOCYTES RELATIVE PERCENT 8 % (BEAKER) (test code = 431) EOSINOPHILS RELATIVE PERCENT 0 % (BEAKER) (test code = 432) BASOPHILS RELATIVE PERCENT 0 % (BEAKER) (test code = 437) NEUTROPHILS ABSOLUTE COUNT 10.03 K/ L 1.78-5.38 H (BEAKER) (test code = 670) LYMPHOCYTES ABSOLUTE COUNT 0.43 K/ L 1.32-3.57 L (BEAKER) (test code = 414) MONOCYTES ABSOLUTE COUNT (BEAKER) 0.97 K/ L 0.30-0.82 H (test code = 415) EOSINOPHILS ABSOLUTE COUNT 0.01 K/ L 0.04-0.54 L (BEAKER) (test code = 416) BASOPHILS ABSOLUTE COUNT (BEAKER) 0.01 K/ L 0.01-0.08 (test code = 417) IMMATURE GRANULOCYTES-RELATIVE 1 % 0-1 PERCENT (BEAKER) (test code = 2801) SARS-CoV-2 (COVID-19) RNA [Presence] in Respiratory specimen by KARLA with probe [id number] 02:52:29 Test Item Value Reference Range Interpretation Comments SARS-CoV-2 (COVID-19) RNA Not detected Not-Detected [Presence] in Respiratory specimen by KARLA with probe detection (test code = 51888-4) SARS-CoV-2 (COVID-19) RNA [Presence] in Respiratory specimen by KARLA with probe [id number] 19:47:34 Test Item Value Reference Range Interpretation Comments SARS-CoV-2 (COVID-19) RNA Not detected Not-Detected [Presence] in Respiratory specimen by KARLA with probe detection (test code = 77890-4) SARS coronavirus 2 RNA [Presence] in Respiratory specimen by KARLA with probe [id number] 04:49:59 Test Item Value Reference Range Interpretation Comments SARS coronavirus 2 RNA Not detected Not-Detected [Presence] in Respiratory specimen by KARLA with probe detection (test code = 12200-4) Basic Metabolic Panel (NA, K, CL, CO2, GLUCOSE, BUN, CREATININE, CA)2019-10-27 20:03:00 Test Item Value Reference Range Interpretation Comments NA (test code = 140 mmol/L 135-145 6269656373) K (test code = 4.4 mmol/L 3.5-5 5098443393) CL (test code = 105 mmol/L 98-108 8344734188) CO2 TOTAL (test code = 27 mmol/L 23-31 2616491021) AGAP (test code = 2-16 3657533454) BUN (test code = 82 mg/dL 7-23 H 7009394237) GLUCOSE (test code = 50 mg/dL 70-110 L 7176002871) CREATININE (test code = 4.47 mg/dL 0.6-1.25 H 3935737307) CALCIUM (test code = 8.4 mg/dL 8.6-10.6 L 9186403846) eGFR Calculation mL/min/1.73m2 (Non-) (test code = 9105827007) eGFR Calculation mL/min/1.73m2 () (test code = 8240260116) GIBRAN (test code = GIBRAN) Association of Glomerular Filtration Rate (GFR) and Staging of Kidney Disease* + --+ --+ ------+| GFR (mL/min/1.73 m2) ?| With Kidney Damage ?| ?Without Kidney Damage+ --------+ --------+ +| ?>90 ?| ?Stage one ?| ? Normal ?+ ---+ ---+ -------+| ?60-89 ?| ?Stage two ?| ? Decreased GFR ? + --+ --+ ------+| ?30-59 ?| ?Stage three ?| ? Stage three ? + --+ --+ ------+| ?15-29 ?| ?Stage four ? | ? Stage four ?+ ---+ ---+ -------+| ?<15 (or dialysis) ? ?| ?Stage five ? | ? Stage five ?+ ---+ ---+ -------+ *Each stage assumes the associated GFR level has been in effect for at least three months. ?Stages 1 to 5, with or without kidney disease, indicate chronic kidney disease. Notes: Determination of stages one and two (with eGFR >59mL/min/1.73 m2) requires estimation of kidney damage for at least three months as defined by structural or functional abnormalities of the kidney, manifested by either:Pathological abnormalities or Markers of kidney damage (including abnormalities in the composition of the blood or urine or abnormalities in imaging tests). Lab Interpretation Abnormal (test code = 72465-5) [facility] (ALB, T.PRO, BILI T, BU/BC, ALT, AST, ALK PHOS)2019-10-27 20:03:00 Test Item Value Reference Range Interpretation Comments TOTAL BILI (test code = 4002482806) 1.1 mg/dL 0.1-1.1 BILI UNCON (test code = 0348849439) 0.5 mg/dL 0.1-1.1 BILI CONJ (test code = 9295176128) 0.0 mg/dL 0-0.3 T PROTEIN (test code = 4955928747) 7.9 g/dL 6.3-8.2 ALBUMIN (test code = 7377558439) 3.7 g/dL 3.5-5 ALK PHOS (test code = 3589072910) 115 U/L 34-122 ALTv (test code = 1742-6) 12 U/L 5-50 AST(SGOT) (test code = 1010059509) 34 U/L 13-40 Lab Interpretation (test code = Normal 10237-1) [facility] [id number] 19:50:00 Test Item Value Reference Range Interpretation Comments WBC (test code = See_Comment [Automated 6190-2) message] The sy stem which generated this result transmitted reference range : 4.20 - 10.70 10*3/?L. The reference range was not used to interpret this result as normal/abnormal . RBC (test code = See_Comment L [Automated 429-8) message] The sy stem which generated this result transmitted reference range : 4.26 - 5.52 10*6/?L. The reference range was not used to interpret this result as normal/abnormal . HGB (test code = 11.7 g/dL 12.2-16.4 L 718-7) HCT (test code = 37.1 % 38.4-49.3 L 4544-3) MCV (test code = 93.5 fL 81.7-95.6 787-2) MCH (test code = 29.5 pg 26.1-32.7 785-6) MCHC (test code = 31.5 g/dL 31.2-35 786-4) RDW-SD (test code = 46.3 fL 38.5-51.6 31423-4) RDW-CV (test code = 13.6 % 12.1-15.4 788-0) PLT (test code = See_Comment L [Automated 777-3) message] The sy stem which generated this result transmitted reference range : 150 - 328 10*3/ ?L. The reference r ray was not used to interpret this result as normal/abnormal . MPV (test code = 11.4 fL 9.8-13 83057-4) NRBC/100 WBC (test See_Comment [Automat ed code = 0395395727) message] The system which generated this result transmitted reference range : 0.0 - 10.0 /100 WBCs. The refer ence range was not u sed to interpret th is result as normal/abnormal . NRBC x10^3 (test code <0.01 See_Comment [Auto mated = 8919148072) message] The s ystem which generated this result transmitted reference range : 10*3/?L. The reference range was not used to interpret this result as normal/abnormal . GRAN MAT (NEUT) % 73.5 % (test code = 770-8) IMM GRAN % (test code 0.20 % = 7261134784) LYMPH % (test code = 15.9 % 736-9) MONO % (test code = 7.8 % 5905-5) EOS % (test code = 1.6 % 713-8) BASO % (test code = 1.0 % 706-2) GRAN MAT x10^3(ANC) 3.60 10*3/uL 1.99-6.95 (test code = 4112103782) IMM GRAN x10^3 (test <0.03 0-0.06 code = 2873338694) LYMPH x10^3 (test code 0.78 10*3/uL 1.09-3.23 L = 731-0) MONO x10^3 (test code 0.38 10*3/uL 0.36-1.02 = 742-7) EOS x10^3 (test code = 0.08 10*3/uL 0.06-0.53 711-2) BASO x10^3 (test code 0.05 10*3/uL 0.01-0.09 = 704-7) Lab Interpretation Abnormal (test code = 82111-0) [facility] WITH [id number] 18:08:00 Test Item Value Reference Range Interpretation Comments WBC (test code = See_Comment [Automated 6690-2) message] The sy stem which generated this result transmitted reference range : 4.20 - 10.70 10*3/?L. The reference range was not used to interpret this result as normal/abnormal . RBC (test code = See_Comment L [Automated 789-8) message] The sy stem which generated this result transmitted reference range : 4.26 - 5.52 10*6/?L. The reference range was not used to interpret this result as normal/abnormal . HGB (test code = 11.2 g/dL 12.2-16.4 L 718-7) HCT (test code = 36.2 % 38.4-49.3 L 4544-3) MCV (test code = 95.0 fL 81.7-95.6 787-2) MCH (test code = 29.4 pg 26.1-32.7 785-6) MCHC (test code = 30.9 g/dL 31.2-35 L 786-4) RDW-SD (test code = 48.7 fL 38.5-51.6 71717-5) RDW-CV (test code = 14.0 % 12.1-15.4 788-0) PLT (test code = See_Comment L [Automated 777-3) message] The sy stem which generated this result transmitted reference range : 150 - 328 10*3/ ?L. The reference r ray was not used to interpret this result as normal/abnormal . MPV (test code = 9.4 fL 9.8-13 L 35571-4) NRBC/100 WBC (test See_Comment [Automat ed code = 7177391986) message] The system which generated this result transmitted reference range : 0.0 - 10.0 /100 WBCs. The refer ence range was not u sed to interpret th is result as normal/abnormal . NRBC x10^3 (test code <0.01 See_Comment [Auto mated = 6053359572) message] The s ystem which generated this result transmitted reference range : 10*3/?L. The reference range was not used to interpret this result as normal/abnormal . GRAN MAT (NEUT) % 75.1 % (test code = 770-8) IMM GRAN % (test code 0.20 % = 7929955596) LYMPH % (test code = 14.4 % 736-9) MONO % (test code = 7.8 % 5905-5) EOS % (test code = 1.6 % 713-8) BASO % (test code = 0.9 % 706-2) GRAN MAT x10^3(ANC) 3.38 10*3/uL 1.99-6.95 (test code = 8319351916) IMM GRAN x10^3 (test <0.03 0-0.06 code = 5788610531) LYMPH x10^3 (test code 0.65 10*3/uL 1.09-3.23 L = 731-0) MONO x10^3 (test code 0.35 10*3/uL 0.36-1.02 L = 742-7) EOS x10^3 (test code = 0.07 10*3/uL 0.06-0.53 711-2) BASO x10^3 (test code 0.04 10*3/uL 0.01-0.09 = 704-7) Lab Interpretation Abnormal (test code = 23426-0) [facility] WITH [id number] 18:08:00 Test Item Value Reference Range Interpretation Comments WBC (test code = See_Comment [Automated 6690-2) message] The sy stem which generated this result transmitted reference range : 4.20 - 10.70 10*3/?L. The reference range was not used to interpret this result as normal/abnormal . RBC (test code = See_Comment L [Automated 789-8) message] The sy stem which generated this result transmitted reference range : 4.26 - 5.52 10*6/?L. The reference range was not used to interpret this result as normal/abnormal . HGB (test code = 11.2 g/dL 12.2-16.4 L 718-7) HCT (test code = 36.2 % 38.4-49.3 L 4544-3) MCV (test code = 95.0 fL 81.7-95.6 787-2) MCH (test code = 29.4 pg 26.1-32.7 785-6) MCHC (test code = 30.9 g/dL 31.2-35 L 786-4) RDW-SD (test code = 48.7 fL 38.5-51.6 02138-5) RDW-CV (test code = 14.0 % 12.1-15.4 788-0) PLT (test code = See_Comment L [Automated 777-3) message] The sy stem which generated this result transmitted reference range : 150 - 328 10*3/ ?L. The reference r ray was not used to interpret this result as normal/abnormal . MPV (test code = 9.4 fL 9.8-13 L 75703-2) NRBC/100 WBC (test See_Comment [Automat ed code = [id number]) message] The system which generated this result transmitted reference range : 0.0 - 10.0 /100 WBCs. The refer ence range was not u sed to interpret th is result as normal/abnormal . NRBC x10^3 (test code <0.01 See_Comment [Auto mated = [id number]) message] The s ystem which generated this result transmitted reference range : 10*3/?L. The reference range was not used to interpret this result as normal/abnormal . GRAN MAT (NEUT) % 75.1 % (test code = 770-8) IMM GRAN % (test code 0.20 % = [id number]) LYMPH % (test code = 14.4 % 736-9) MONO % (test code = 7.8 % 5905-5) EOS % (test code = 1.6 % 713-8) BASO % (test code = 0.9 % 706-2) GRAN MAT x10^3(ANC) 3.38 10*3/uL 1.99-6.95 (test code = [id number]) IMM GRAN x10^3 (test <0.03 0-0.06 code = [id number]) LYMPH x10^3 (test code 0.65 10*3/uL 1.09-3.23 L = 731-0) MONO x10^3 (test code 0.35 10*3/uL 0.36-1.02 L = 742-7) EOS x10^3 (test code = 0.07 10*3/uL 0.06-0.53 711-2) BASO x10^3 (test code 0.04 10*3/uL 0.01-0.09 = 704-7) Lab Interpretation Abnormal (test code = 22134-8) [facility] [id number] 20:51:01[place] OCTOD: 234, wnlOS: 296, mild ERM with slightly blunted foveal contourEmanate Health/Queen of [facility] [id number] 16:22:00 Test Item Value Reference Range Interpretation Comments POC-GLUCOSE METER 164 mg/dL 70-110 H TESTED AT [place] [address] ([facility]) (test code = [facility] 1538) [address] POCT-GLUCOSE [id number] 12:55:00 Test Item Value Reference Range Interpretation Comments POC-GLUCOSE METER 158 mg/dL 70-110 H TESTED AT [place] [address] ([facility]) (test code = [facility] 1538) [address] POCT-GLUCOSE [id number] 07:13:00 Test Item Value Reference Range Interpretation Comments POC-GLUCOSE METER 115 mg/dL 70-110 H TESTED AT [place] [address] ([facility]) (test code = [facility] 1538) [address] CALCIUM, [id number] 06:56:00 Test Item Value Reference Range Interpretation Comments CALCIUM IONIZED ([facility]) (test 1.10 mmol/L 1.12-1.27 L code = 698) PH, BLOOD ([facility]) (test code = 7.33 1810) [id number] 06:37:00 Test Item Value Reference Range Interpretation Comments PHOSPHORUS ([facility]) (test code = 2.9 mg/dL 2.3-4.7 604) [id number] 06:37:00 Test Item Value Reference Range Interpretation Comments MAGNESIUM (BEAKER) (test code = 2.0 mg/dL 1.6-2.6 627) BASIC METABOLIC [id number] 06:37:00 Test Item Value Reference Range Interpretation Comments SODIUM (BEAKER) 139 meq/L 136-145 (test code = 381) POTASSIUM (BEAKER) 3.7 meq/L 3.5-5.1 (test code = 379) CHLORIDE (BEAKER) 105 meq/L 98-107 (test code = 382) CO2 (BEAKER) (test 26 meq/L 22-29 code = 355) BLOOD UREA NITROGEN 42 mg/dL 7-21 H (BEAKER) (test code = 354) CREATININE (BEAKER) 2.38 mg/dL 0.57-1.25 H (test code = 358) GLUCOSE RANDOM 112 mg/dL 70-105 H (BEAKER) (test code = 652) CALCIUM (BEAKER) 8.1 mg/dL 8.4-10.2 L (test code = 697) EGFR (BEAKER) (test 34 mL/min/1.73 ESTIMA SIRENA GFR IS code = 1092) sq m NOT ACCURATE CREATININE CLEARANCE IN PREDICTING GLOMERULAR FILTRATION RATE . ESTIMATED GFR I S NOT APPLICABLE FOR DIALYSIS PATIEN TS. BLOOD GAS, [id number] 06:09:00 Test Item Value Reference Range Interpretation Comments PH VENOUS (BEAKER) (test code = 7.36 7.32-7.42 701) PCO2 VENOUS (BEAKER) (test code = 52 mmHg 41-51 H 755) PO2 VENOUS (BEAKER) (test code = 161 mmHg 25-40 H 702) O2 SATURATION VENOUS (BEAKER) 99.0 % 40.0-70.0 H (test code = 703) HCO3 VENOUS (BEAKER) (test code = 29 mmol/L 21-29 705) BASE EXCESS VENOUS (BEAKER) (test 2.4 mmol/L -2.0-3.0 code = 704) PATIENT TEMPERATURE (BEAKER) (test 37.0 C code = 1818) CBC W/PLT COUNT & AUTO [id number] 05:51:00 Test Item Value Reference Range Interpretation Comments WHITE BLOOD CELL COUNT (BEAKER) 7.0 K/ L 3.5-10.5 (test code = 775) RED BLOOD CELL COUNT (BEAKER) 4.33 M/ L 4.63-6.08 L (test code = 761) HEMOGLOBIN (BEAKER) (test code = 12.5 GM/DL 13.7-17.5 L 410) HEMATOCRIT (BEAKER) (test code = 40.5 % 40.1-51.0 411) MEAN CORPUSCULAR VOLUME (BEAKER) 93.5 fL 79.0-92.2 H (test code = 753) MEAN CORPUSCULAR HEMOGLOBIN 28.9 pg 25.7-32.2 (BEAKER) (test code = 751) MEAN CORPUSCULAR HEMOGLOBIN CONC 30.9 GM/DL 32.3-36.5 L (BEAKER) (test code = 752) RED CELL DISTRIBUTION WIDTH 12.4 % 11.6-14.4 (BEAKER) (test code = 412) PLATELET COUNT (BEAKER) (test 202 K/CU MM 150-450 code = 756) MEAN PLATELET VOLUME (BEAKER) 11.6 fL 9.4-12.4 (test code = 754) NUCLEATED RED BLOOD CELLS 0 /100 WBC 0-0 (BEAKER) (test code = 413) NEUTROPHILS RELATIVE PERCENT 55 % (BEAKER) (test code = 429) LYMPHOCYTES RELATIVE PERCENT 35 % (BEAKER) (test code = 430) MONOCYTES RELATIVE PERCENT 6 % (BEAKER) (test code = 431) EOSINOPHILS RELATIVE PERCENT 2 % (BEAKER) (test code = 432) BASOPHILS RELATIVE PERCENT 1 % (BEAKER) (test code = 437) NEUTROPHILS ABSOLUTE COUNT 3.90 K/ L 1.78-5.38 (BEAKER) (test code = 670) LYMPHOCYTES ABSOLUTE COUNT 2.47 K/ L 1.32-3.57 (BEAKER) (test code = 414) MONOCYTES ABSOLUTE COUNT (BEAKER) 0.44 K/ L 0.30-0.82 (test code = 415) EOSINOPHILS ABSOLUTE COUNT 0.16 K/ L 0.04-0.54 (BEAKER) (test code = 416) BASOPHILS ABSOLUTE COUNT (BEAKER) 0.06 K/ L 0.01-0.08 (test code = 417) IMMATURE GRANULOCYTES-RELATIVE 0 % 0-1 PERCENT (BEAKER) (test code = 2801) POCT-GLUCOSE [id number] 20:52:00 Test Item Value Reference Range Interpretation Comments POC-GLUCOSE METER 184 mg/dL 70-110 H TESTED AT [facility] 6720 (BEAKER) (test code = JANIS Campos [facility] 1538) [address] POCT-GLUCOSE [id number] 17:12:00 Test Item Value Reference Range Interpretation Comments POC-GLUCOSE METER 143 mg/dL 70-110 H TESTED AT [place] [address] (BEAKER) (test code = JANIS Campos [facility] 1538) [address] POCT-GLUCOSE [id number] 11:42:00 Test Item Value Reference Range Interpretation Comments POC-GLUCOSE METER 210 mg/dL 70-110 H TESTED AT [place] [address] (BEAKER) (test code = [facility] Andres [facility] 1538) [address] POCT-GLUCOSE [id number] 08:02:00 Test Item Value Reference Range Interpretation Comments POC-GLUCOSE METER 135 mg/dL 70-110 H TESTED AT [place] [address] (BEAKER) (test code = [facility] Andres [facility] 1538) [address] BASIC METABOLIC [id number] 07:16:00 Test Item Value Reference Range Interpretation Comments SODIUM (BEAKER) 138 meq/L 136-145 (test code = 381) POTASSIUM (BEAKER) 4.0 meq/L 3.5-5.1 (test code = 379) CHLORIDE (BEAKER) 105 meq/L 98-107 (test code = 382) CO2 (BEAKER) (test 26 meq/L 22-29 code = 355) BLOOD UREA NITROGEN 39 mg/dL 7-21 H (BEAKER) (test code = 354) CREATININE (BEAKER) 2.27 mg/dL 0.57-1.25 H (test code = 358) GLUCOSE RANDOM 128 mg/dL 70-105 H (BEAKER) (test code = 652) CALCIUM (BEAKER) 7.9 mg/dL 8.4-10.2 L (test code = 697) EGFR (BEAKER) (test 36 mL/min/1.73 ESTIMA SIRENA GFR IS code = 1092) sq m NOT ACCURATE CREATININE CLEARANCE IN PREDICTING GLOMERULAR FILTRATION RATE . ESTIMATED GFR I S NOT APPLICABLE FOR DIALYSIS PATIEN TS. [id number] 07:09:00 Test Item Value Reference Range Interpretation Comments MAGNESIUM (BEAKER) (test code = 2.3 mg/dL 1.6-2.6 627) CBC W/PLT COUNT & AUTO [id number] 06:34:00 Test Item Value Reference Range Interpretation Comments WHITE BLOOD CELL COUNT (BEAKER) 7.1 K/ L 3.5-10.5 (test code = 775) RED BLOOD CELL COUNT (BEAKER) 4.29 M/ L 4.63-6.08 L (test code = 761) HEMOGLOBIN (BEAKER) (test code = 12.4 GM/DL 13.7-17.5 L 410) HEMATOCRIT (BEAKER) (test code = 40.1 % 40.1-51.0 411) MEAN CORPUSCULAR VOLUME (BEAKER) 93.5 fL 79.0-92.2 H (test code = 753) MEAN CORPUSCULAR HEMOGLOBIN 28.9 pg 25.7-32.2 (BEAKER) (test code = 751) MEAN CORPUSCULAR HEMOGLOBIN CONC 30.9 GM/DL 32.3-36.5 L (BEAKER) (test code = 752) RED CELL DISTRIBUTION WIDTH 12.6 % 11.6-14.4 (BEAKER) (test code = 412) PLATELET COUNT (BEAKER) (test 209 K/CU MM 150-450 code = 756) MEAN PLATELET VOLUME (BEAKER) 11.8 fL 9.4-12.4 (test code = 754) NUCLEATED RED BLOOD CELLS 0 /100 WBC 0-0 (BEAKER) (test code = 413) NEUTROPHILS RELATIVE PERCENT 64 % (BEAKER) (test code = 429) LYMPHOCYTES RELATIVE PERCENT 26 % (BEAKER) (test code = 430) MONOCYTES RELATIVE PERCENT 7 % (BEAKER) (test code = 431) EOSINOPHILS RELATIVE PERCENT 2 % (BEAKER) (test code = 432) BASOPHILS RELATIVE PERCENT 1 % (BEAKER) (test code = 437) NEUTROPHILS ABSOLUTE COUNT 4.56 K/ L 1.78-5.38 (BEAKER) (test code = 670) LYMPHOCYTES ABSOLUTE COUNT 1.88 K/ L 1.32-3.57 (BEAKER) (test code = 414) MONOCYTES ABSOLUTE COUNT (BEAKER) 0.47 K/ L 0.30-0.82 (test code = 415) EOSINOPHILS ABSOLUTE COUNT 0.12 K/ L 0.04-0.54 (BEAKER) (test code = 416) BASOPHILS ABSOLUTE COUNT (BEAKER) 0.06 K/ L 0.01-0.08 (test code = 417) IMMATURE GRANULOCYTES-RELATIVE 0 % 0-1 PERCENT (BEAKER) (test code = 2801) POCT-GLUCOSE [id number] 22:32:00 Test Item Value Reference Range Interpretation Comments POC-GLUCOSE METER 215 mg/dL 70-110 H TESTED AT [facility] 67 (BEAKER) (test code = [facility] 1538) [address] POCT-GLUCOSE [id number] 17:17:00 Test Item Value Reference Range Interpretation Comments POC-GLUCOSE METER 219 mg/dL 70-110 H TESTED AT [place] [address] ([facility]) (test code = [facility] 1538) [address] POCT-GLUCOSE [id number] 12:49:00 Test Item Value Reference Range Interpretation Comments POC-GLUCOSE METER 159 mg/dL 70-110 H TESTED AT [place] [address] ([facility]) (test code = [facility] 1538) [address] POCT-GLUCOSE [id number] 11:26:00 Test Item Value Reference Range Interpretation Comments POC-GLUCOSE METER 181 mg/dL 70-110 H TESTED AT [place] [address] ([facility]) (test code = [facility] 1538) [address] POCT-GLUCOSE [id number] 09:18:00 Test Item Value Reference Range Interpretation Comments POC-GLUCOSE METER 150 mg/dL 70-110 H TESTED AT [place] [address] ([facility]) (test code = [facility] 1538) [address] [id number] 08:08:00 Test Item Value Reference Range Interpretation Comments PHOSPHORUS (BEAKER) (test code = 3.0 mg/dL 2.3-4.7 604) [id number] 08:08:00 Test Item Value Reference Range Interpretation Comments MAGNESIUM (BEAKER) (test code = 1.7 mg/dL 1.6-2.6 627) BASIC METABOLIC [id number] 08:08:00 Test Item Value Reference Range Interpretation Comments SODIUM (BEAKER) 139 meq/L 136-145 (test code = 381) POTASSIUM (BEAKER) 3.4 meq/L 3.5-5.1 L (test code = 379) CHLORIDE (BEAKER) 106 meq/L 98-107 (test code = 382) CO2 (BEAKER) (test 26 meq/L 22-29 code = 355) BLOOD UREA NITROGEN 38 mg/dL 7-21 H (BEAKER) (test code = 354) CREATININE (BEAKER) 2.16 mg/dL 0.57-1.25 H (test code = 358) GLUCOSE RANDOM 102 mg/dL 70-105 (BEAKER) (test code = 652) CALCIUM (BEAKER) 8.0 mg/dL 8.4-10.2 L (test code = 697) EGFR (BEAKER) (test 38 mL/min/1.73 ESTIMA SIRENA GFR IS code = 1092) sq m NOT ACCURATE CREATININE CLEARANCE IN PREDICTING GLOMERULAR FILTRATION RATE . ESTIMATED GFR I S NOT APPLICABLE FOR DIALYSIS PATIEN TS. B-TYPE NATRIURETIC FACTOR (BNP)2017-05-26 07:56:00 Test Item Value Reference Range Interpretation Comments B-TYPE NATRIURETIC PEPTIDE 2117 pg/mL 0-100 H (BEAKER) (test code = 700) CBC W/PLT COUNT & AUTO [id number] 07:24:00 Test Item Value Reference Range Interpretation Comments WHITE BLOOD CELL COUNT (BEAKER) 6.8 K/ L 3.5-10.5 (test code = 775) RED BLOOD CELL COUNT (BEAKER) 4.40 M/ L 4.63-6.08 L (test code = 761) HEMOGLOBIN (BEAKER) (test code = 12.7 GM/DL 13.7-17.5 L 410) HEMATOCRIT (BEAKER) (test code = 41.5 % 40.1-51.0 411) MEAN CORPUSCULAR VOLUME (BEAKER) 94.3 fL 79.0-92.2 H (test code = 753) MEAN CORPUSCULAR HEMOGLOBIN 28.9 pg 25.7-32.2 (BEAKER) (test code = 751) MEAN CORPUSCULAR HEMOGLOBIN CONC 30.6 GM/DL 32.3-36.5 L (BEAKER) (test code = 752) RED CELL DISTRIBUTION WIDTH 12.6 % 11.6-14.4 (BEAKER) (test code = 412) PLATELET COUNT (BEAKER) (test 215 K/CU MM 150-450 code = 756) MEAN PLATELET VOLUME (BEAKER) 11.6 fL 9.4-12.4 (test code = 754) NUCLEATED RED BLOOD CELLS 0 /100 WBC 0-0 (BEAKER) (test code = 413) NEUTROPHILS RELATIVE PERCENT 62 % (BEAKER) (test code = 429) LYMPHOCYTES RELATIVE PERCENT 29 % (BEAKER) (test code = 430) MONOCYTES RELATIVE PERCENT 7 % (BEAKER) (test code = 431) EOSINOPHILS RELATIVE PERCENT 1 % (BEAKER) (test code = 432) BASOPHILS RELATIVE PERCENT 1 % (BEAKER) (test code = 437) NEUTROPHILS ABSOLUTE COUNT 4.22 K/ L 1.78-5.38 (BEAKER) (test code = 670) LYMPHOCYTES ABSOLUTE COUNT 1.98 K/ L 1.32-3.57 (BEAKER) (test code = 414) MONOCYTES ABSOLUTE COUNT (BEAKER) 0.44 K/ L 0.30-0.82 (test code = 415) EOSINOPHILS ABSOLUTE COUNT 0.09 K/ L 0.04-0.54 (BEAKER) (test code = 416) BASOPHILS ABSOLUTE COUNT (BEAKER) 0.06 K/ L 0.01-0.08 (test code = 417) IMMATURE GRANULOCYTES-RELATIVE 0 % 0-1 PERCENT (BEAKER) (test code = 2801) BLOOD GAS, [id number] 07:20:00 Test Item Value Reference Range Interpretation Comments PH VENOUS (BEAKER) (test code = 7.42 7.32-7.42 701) PCO2 VENOUS (BEAKER) (test code = 48 mmHg 41-51 755) PO2 VENOUS (BEAKER) (test code = 46 mmHg 25-40 H 702) O2 SATURATION VENOUS (BEAKER) 82.2 % 40.0-70.0 H (test code = 703) HCO3 VENOUS (BEAKER) (test code = 30 mmol/L 21-29 H 705) BASE EXCESS VENOUS (BEAKER) (test 4.5 mmol/L -2.0-3.0 H code = 704) PATIENT TEMPERATURE (BEAKER) (test 37.0 C code = 1818) FIO2 (BEAKER) (test code = 1819) 100.0 % POCT-GLUCOSE [id number] 22:01:00 Test Item Value Reference Range Interpretation Comments POC-GLUCOSE METER 152 mg/dL 70-110 H TESTED AT [facility] 6720 (BEAKER) (test code = JANIS Campos [place] 1538) [address] POCT-GLUCOSE [id number] 18:37:00 Test Item Value Reference Range Interpretation Comments POC-GLUCOSE METER 180 mg/dL 70-110 H TESTED AT [facility] 6720 ([facility]) (test code = JANIS Campos [place] 1538) [address] RAD, CHEST, 1 VIEW, NON [id number] 16:56:00Reason for exam:->pleural effusionsShould this be performed at the bedside?->YesFINAL REPORT Chest one view. Clinical history: pleural effusions Comparison: May 21, 2017 Discussion: A frontal chest is provided. Cardiomediastinal contours are unchanged. Peripheral opacity in the left midlung has resolved. There are jfqqr-gh-cxxdmyeo bilateral pleural effusions and bibasilar atelectasis or consolidation. No pneumothorax. Signed: Sugey Ojeda Verified Date/Time: 05/25/2017 16:56:00 Reading Location: [address] Consult Reading Room IUM, [id number] 16:49:00 Test Item Value Reference Range Interpretation Comments CALCIUM IONIZED (BEAKER) (test 1.09 mmol/L 1.12-1.27 L code = 698) PH, BLOOD (BEAKER) (test code = 7.37 1810) BLOOD GAS, [id number] 16:32:00 Test Item Value Reference Range Interpretation Comments PH VENOUS (BEAKER) (test code = 7.37 7.32-7.42 701) PCO2 VENOUS (BEAKER) (test code = 55 mmHg 41-51 H 755) PO2 VENOUS (BEAKER) (test code = 30 mmHg 25-40 702) O2 SATURATION VENOUS (BEAKER) 54.6 % 40.0-70.0 (test code = 703) HCO3 VENOUS (BEAKER) (test code = 31 mmol/L 21-29 H 705) BASE EXCESS VENOUS (BEAKER) (test 4.7 mmol/L -2.0-3.0 H code = 704) PATIENT TEMPERATURE (BEAKER) (test 37.0 C code = 1818) POCT-GLUCOSE [id number] 16:26:00 Test Item Value Reference Range Interpretation Comments POC-GLUCOSE METER 231 mg/dL 70-110 H TESTED AT [facility] 6720 (BEAKER) (test code = JANIS Campos [place] 1538) [address] POCT-GLUCOSE [id number] 08:13:00 Test Item Value Reference Range Interpretation Comments POC-GLUCOSE METER 109 mg/dL 70-110 TESTED AT [facility] 6720 (BEAKER) (test code = JANIS Campos [place] 1538) [address] [id number] 06:22:00 Test Item Value Reference Range Interpretation Comments MAGNESIUM (BEAKER) (test code = 1.7 mg/dL 1.6-2.6 627) BASIC METABOLIC [id number] 06:22:00 Test Item Value Reference Range Interpretation Comments SODIUM (BEAKER) 141 meq/L 136-145 (test code = 381) POTASSIUM (BEAKER) 3.4 meq/L 3.5-5.1 L (test code = 379) CHLORIDE (BEAKER) 107 meq/L 98-107 (test code = 382) CO2 (BEAKER) (test 27 meq/L 22-29 code = 355) BLOOD UREA NITROGEN 38 mg/dL 7-21 H (BEAKER) (test code = 354) CREATININE (BEAKER) 2.14 mg/dL 0.57-1.25 H (test code = 358) GLUCOSE RANDOM 111 mg/dL 70-105 H (BEAKER) (test code = 652) CALCIUM (BEAKER) 8.0 mg/dL 8.4-10.2 L (test code = 697) EGFR (BEAKER) (test 38 mL/min/1.73 ESTIMA SIRENA GFR IS code = 1092) sq m NOT ACCURATE CREATININE CLEARANCE IN PREDICTING GLOMERULAR FILTRATION RATE . ESTIMATED GFR I S NOT APPLICABLE FOR DIALYSIS PATIEN TS. BLOOD GAS, [id number] 05:50:00 Test Item Value Reference Range Interpretation Comments PH VENOUS (BEAKER) (test code = 7.42 7.32-7.42 701) PCO2 VENOUS (BEAKER) (test code = 49 mmHg 41-51 755) PO2 VENOUS (BEAKER) (test code = 69 mmHg 25-40 H 702) O2 SATURATION VENOUS (BEAKER) 93.9 % 40.0-70.0 H (test code = 703) HCO3 VENOUS (BEAKER) (test code = 31 mmol/L 21-29 H 705) BASE EXCESS VENOUS (BEAKER) (test 5.3 mmol/L -2.0-3.0 H code = 704) PATIENT TEMPERATURE (BEAKER) (test 37.0 C code = 1818) FIO2 (BEAKER) (test code = 1819) 100.0 % CBC W/PLT COUNT & AUTO [id number] 05:39:00 Test Item Value Reference Range Interpretation Comments WHITE BLOOD CELL COUNT (BEAKER) 7.0 K/ L 3.5-10.5 (test code = 775) RED BLOOD CELL COUNT (BEAKER) 4.19 M/ L 4.63-6.08 L (test code = 761) HEMOGLOBIN (BEAKER) (test code = 12.1 GM/DL 13.7-17.5 L 410) HEMATOCRIT (BEAKER) (test code = 40.2 % 40.1-51.0 411) MEAN CORPUSCULAR VOLUME (BEAKER) 95.9 fL 79.0-92.2 H (test code = 753) MEAN CORPUSCULAR HEMOGLOBIN 28.9 pg 25.7-32.2 (BEAKER) (test code = 751) MEAN CORPUSCULAR HEMOGLOBIN CONC 30.1 GM/DL 32.3-36.5 L (BEAKER) (test code = 752) RED CELL DISTRIBUTION WIDTH 12.6 % 11.6-14.4 (BEAKER) (test code = 412) PLATELET COUNT (BEAKER) (test 206 K/CU MM 150-450 code = 756) MEAN PLATELET VOLUME (BEAKER) 11.1 fL 9.4-12.4 (test code = 754) NUCLEATED RED BLOOD CELLS 0 /100 WBC 0-0 (BEAKER) (test code = 413) NEUTROPHILS RELATIVE PERCENT 65 % (BEAKER) (test code = 429) LYMPHOCYTES RELATIVE PERCENT 26 % (BEAKER) (test code = 430) MONOCYTES RELATIVE PERCENT 6 % (BEAKER) (test code = 431) EOSINOPHILS RELATIVE PERCENT 2 % (BEAKER) (test code = 432) BASOPHILS RELATIVE PERCENT 1 % (BEAKER) (test code = 437) NEUTROPHILS ABSOLUTE COUNT 4.59 K/ L 1.78-5.38 (BEAKER) (test code = 670) LYMPHOCYTES ABSOLUTE COUNT 1.79 K/ L 1.32-3.57 (BEAKER) (test code = 414) MONOCYTES ABSOLUTE COUNT (BEAKER) 0.45 K/ L 0.30-0.82 (test code = 415) EOSINOPHILS ABSOLUTE COUNT 0.12 K/ L 0.04-0.54 (BEAKER) (test code = 416) BASOPHILS ABSOLUTE COUNT (BEAKER) 0.07 K/ L 0.01-0.08 (test code = 417) IMMATURE GRANULOCYTES-RELATIVE 0 % 0-1 PERCENT (BEAKER) (test code = 2801) POCT-GLUCOSE [id number] 21:37:00 Test Item Value Reference Range Interpretation Comments POC-GLUCOSE METER 220 mg/dL 70-110 H TESTED AT [place] [address] ([facility]) ([facility] 1538) [address] POCT-GLUCOSE [id number] 18:38:00 Test Item Value Reference Range Interpretation Comments POC-GLUCOSE METER 191 mg/dL 70-110 H TESTED AT [place] [address] ([facility]) (test code = [facility] 1538) [address] BLOOD GAS, [id number] 13:49:00 Test Item Value Reference Range Interpretation Comments PH VENOUS (BEAKER) (test code = 7.41 7.32-7.42 701) PCO2 VENOUS (BEAKER) (test code = 46 mmHg 41-51 755) PO2 VENOUS (BEAKER) (test code = 207 mmHg 25-40 H 702) O2 SATURATION VENOUS (BEAKER) 99.4 % 40.0-70.0 H (test code = 703) HCO3 VENOUS (BEAKER) (test code = 29 mmol/L 21-29 705) BASE EXCESS VENOUS (BEAKER) (test 3.4 mmol/L -2.0-3.0 H code = 704) PATIENT TEMPERATURE (BEAKER) (test 37.0 C code = 1818) FIO2 (BEAKER) (test code = 1819) 100.0 % POCT-GLUCOSE [id number] 13:19:00 Test Item Value Reference Range Interpretation Comments POC-GLUCOSE METER 208 mg/dL 70-110 H TESTED AT [place] [address] (BEAKER) (test code = JANIS Campos [place] 1538) [address] POCT-GLUCOSE [id number] 10:17:00 Test Item Value Reference Range Interpretation Comments POC-GLUCOSE METER 177 mg/dL 70-110 H TESTED AT [facility] 6720 (BEAKER) (test code = JANIS Campos [facility] 1538) [address] [id number] 04:54:00 Test Item Value Reference Range Interpretation Comments MAGNESIUM (BEAKER) (test code = 2.0 mg/dL 1.6-2.6 627) BASIC METABOLIC [id number] 04:54:00 Test Item Value Reference Range Interpretation Comments SODIUM (BEAKER) 141 meq/L 136-145 (test code = 381) POTASSIUM (BEAKER) 3.7 meq/L 3.5-5.1 (test code = 379) CHLORIDE (BEAKER) 105 meq/L 98-107 (test code = 382) CO2 (BEAKER) (test 29 meq/L 22-29 code = 355) BLOOD UREA NITROGEN 37 mg/dL 7-21 H (BEAKER) (test code = 354) CREATININE (BEAKER) 2.33 mg/dL 0.57-1.25 H (test code = 358) GLUCOSE RANDOM 157 mg/dL 70-105 H (BEAKER) (test code = 652) CALCIUM (BEAKER) 8.3 mg/dL 8.4-10.2 L (test code = 697) EGFR (BEAKER) (test 34 mL/min/1.73 ESTIMA SIRENA GFR IS code = 1092) sq m NOT ACCURATE CREATININE CLEARANCE IN PREDICTING GLOMERULAR FILTRATION RATE . ESTIMATED GFR I S NOT APPLICABLE FOR DIALYSIS PATIEN TS. [id number] 04:54:00 Test Item Value Reference Range Interpretation Comments ALBUMIN (BEAKER) (test code = 1145) 2.2 g/dL 3.5-5.0 L CBC W/PLT COUNT & AUTO [id number] 04:01:00 Test Item Value Reference Range Interpretation Comments WHITE BLOOD CELL COUNT (BEAKER) 7.5 K/ L 3.5-10.5 (test code = 775) RED BLOOD CELL COUNT (BEAKER) 4.38 M/ L 4.63-6.08 L (test code = 761) HEMOGLOBIN (BEAKER) (test code = 12.8 GM/DL 13.7-17.5 L 410) HEMATOCRIT (BEAKER) (test code = 41.1 % 40.1-51.0 411) MEAN CORPUSCULAR VOLUME (BEAKER) 93.8 fL 79.0-92.2 H (test code = 753) MEAN CORPUSCULAR HEMOGLOBIN 29.2 pg 25.7-32.2 (BEAKER) (test code = 751) MEAN CORPUSCULAR HEMOGLOBIN CONC 31.1 GM/DL 32.3-36.5 L (BEAKER) (test code = 752) RED CELL DISTRIBUTION WIDTH 12.5 % 11.6-14.4 (BEAKER) (test code = 412) PLATELET COUNT (BEAKER) (test 225 K/CU MM 150-450 code = 756) MEAN PLATELET VOLUME (BEAKER) 11.1 fL 9.4-12.4 (test code = 754) NUCLEATED RED BLOOD CELLS 0 /100 WBC 0-0 (BEAKER) (test code = 413) NEUTROPHILS RELATIVE PERCENT 64 % (BEAKER) (test code = 429) LYMPHOCYTES RELATIVE PERCENT 29 % (BEAKER) (test code = 430) MONOCYTES RELATIVE PERCENT 5 % (BEAKER) (test code = 431) EOSINOPHILS RELATIVE PERCENT 2 % (BEAKER) (test code = 432) BASOPHILS RELATIVE PERCENT 1 % (BEAKER) (test code = 437) NEUTROPHILS ABSOLUTE COUNT 4.74 K/ L 1.78-5.38 (BEAKER) (test code = 670) LYMPHOCYTES ABSOLUTE COUNT 2.12 K/ L 1.32-3.57 (BEAKER) (test code = 414) MONOCYTES ABSOLUTE COUNT (BEAKER) 0.38 K/ L 0.30-0.82 (test code = 415) EOSINOPHILS ABSOLUTE COUNT 0.14 K/ L 0.04-0.54 (BEAKER) (test code = 416) BASOPHILS ABSOLUTE COUNT (BEAKER) 0.06 K/ L 0.01-0.08 (test code = 417) IMMATURE GRANULOCYTES-RELATIVE 0 % 0-1 PERCENT (BEAKER) (test code = 2801) POCT-GLUCOSE [id number] 21:29:00 Test Item Value Reference Range Interpretation Comments POC-GLUCOSE METER 207 mg/dL 70-110 H TESTED AT [facility] 67[address] (BEAKER) (test code = [place]ANIS [place]INE[place] 1538) [address] POCT-GLUCOSE [id number] 18:12:00 Test Item Value Reference Range Interpretation Comments POC-GLUCOSE METER 203 mg/dL 70-110 H TESTED AT [place] [address] ([facility]) (test code = JANIS Campos [facility] 1538) [address] U/S, RENAL, [id number] 16:07:00Reason for exam:->to look for CKD, renal [...] renal disease. Otherwise unremarkable renal ultrasound. Signed: Tereso Hamilton MDReport Verified Date/Time: 05/23/2017 16:07:16 Reading Location: [address] Ultrasound Reading Room POCT-GLUCOSE [id number] 14:23:00 Test Item Value Reference Range Interpretation Comments POC-GLUCOSE METER 187 mg/dL 70-110 H TESTED AT [place] [address] ([facility]) (test code = JANIS Campos [facility] 1538) [address] PROTEIN, RANDOM [id number] 08:16:00 Test Item Value Reference Range Interpretation Comments PROTEIN, URINE ([facility]) (test code 906 mg/dL 0-14 H = 1569) POCT-GLUCOSE [id number] 07:49:00 Test Item Value Reference Range Interpretation Comments POC-GLUCOSE METER 176 mg/dL 70-110 H TESTED AT [place] [address] ([facility]) (test code = JANIS Campos [facility] 1538) [address] CALCIUM, [id number] 07:14:00 Test Item Value Reference Range Interpretation Comments CALCIUM IONIZED ([facility]) (test 1.04 mmol/L 1.12-1.27 L code = 698) PH, BLOOD (BEAKER) (test code = 7.33 1810) [id number] 07:04:00 Test Item Value Reference Range Interpretation Comments PHOSPHORUS (BEAKER) (test code = 2.8 mg/dL 2.3-4.7 604) [id number] 07:04:00 Test Item Value Reference Range Interpretation Comments MAGNESIUM (BEAKER) (test code = 2.0 mg/dL 1.6-2.6 627) BASIC METABOLIC [id number] 07:04:00 Test Item Value Reference Range Interpretation Comments SODIUM (BEAKER) 141 meq/L 136-145 (test code = 381) POTASSIUM (BEAKER) 3.6 meq/L 3.5-5.1 (test code = 379) CHLORIDE (BEAKER) 105 meq/L 98-107 (test code = 382) CO2 (BEAKER) (test 28 meq/L 22-29 code = 355) BLOOD UREA NITROGEN 35 mg/dL 7-21 H (BEAKER) (test code = 354) CREATININE (BEAKER) 2.38 mg/dL 0.57-1.25 H (test code = 358) GLUCOSE RANDOM 159 mg/dL 70-105 H (BEAKER) (test code = 652) CALCIUM (BEAKER) 8.3 mg/dL 8.4-10.2 L (test code = 697) EGFR (BEAKER) (test 34 mL/min/1.73 ESTIMA SIRENA GFR IS code = 1092) sq m NOT ACCURATE CREATININE CLEARANCE IN PREDICTING GLOMERULAR FILTRATION RATE . ESTIMATED GFR I S NOT APPLICABLE FOR DIALYSIS PATIEN TS. BLOOD GAS, [id number] 06:58:00 Test Item Value Reference Range Interpretation Comments PH VENOUS (BEAKER) (test code = 7.40 7.32-7.42 701) PCO2 VENOUS (BEAKER) (test code = 48 mmHg 41-51 755) PO2 VENOUS (BEAKER) (test code = 39 mmHg 25-40 702) O2 SATURATION VENOUS (BEAKER) 73.5 % 40.0-70.0 H (test code = 703) HCO3 VENOUS (BEAKER) (test code = 30 mmol/L 21-29 H 705) BASE EXCESS VENOUS (BEAKER) (test 3.8 mmol/L -2.0-3.0 H code = 704) PATIENT TEMPERATURE (BEAKER) (test 37.0 C code = 1818) FIO2 (BEAKER) (test code = 1819) 100.0 % CBC W/PLT COUNT & AUTO [id number] 06:49:00 Test Item Value Reference Range Interpretation Comments WHITE BLOOD CELL COUNT (BEAKER) 8.4 K/ L 3.5-10.5 (test code = 775) RED BLOOD CELL COUNT (BEAKER) 4.63 M/ L 4.63-6.08 (test code = 761) HEMOGLOBIN (BEAKER) (test code = 13.4 GM/DL 13.7-17.5 L 410) HEMATOCRIT (BEAKER) (test code = 43.8 % 40.1-51.0 411) MEAN CORPUSCULAR VOLUME (BEAKER) 94.6 fL 79.0-92.2 H (test code = 753) MEAN CORPUSCULAR HEMOGLOBIN 28.9 pg 25.7-32.2 (BEAKER) (test code = 751) MEAN CORPUSCULAR HEMOGLOBIN CONC 30.6 GM/DL 32.3-36.5 L (BEAKER) (test code = 752) RED CELL DISTRIBUTION WIDTH 12.8 % 11.6-14.4 (BEAKER) (test code = 412) PLATELET COUNT (BEAKER) (test 285 K/CU MM 150-450 code = 756) MEAN PLATELET VOLUME (BEAKER) 11.2 fL 9.4-12.4 (test code = 754) NUCLEATED RED BLOOD CELLS 0 /100 WBC 0-0 (BEAKER) (test code = 413) NEUTROPHILS RELATIVE PERCENT 65 % (BEAKER) (test code = 429) LYMPHOCYTES RELATIVE PERCENT 27 % (BEAKER) (test code = 430) MONOCYTES RELATIVE PERCENT 6 % (BEAKER) (test code = 431) EOSINOPHILS RELATIVE PERCENT 1 % (BEAKER) (test code = 432) BASOPHILS RELATIVE PERCENT 1 % (BEAKER) (test code = 437) NEUTROPHILS ABSOLUTE COUNT 5.44 K/ L 1.78-5.38 H (BEAKER) (test code = 670) LYMPHOCYTES ABSOLUTE COUNT 2.23 K/ L 1.32-3.57 (BEAKER) (test code = 414) MONOCYTES ABSOLUTE COUNT (BEAKER) 0.49 K/ L 0.30-0.82 (test code = 415) EOSINOPHILS ABSOLUTE COUNT 0.12 K/ L 0.04-0.54 (BEAKER) (test code = 416) BASOPHILS ABSOLUTE COUNT (BEAKER) 0.08 K/ L 0.01-0.08 (test code = 417) IMMATURE GRANULOCYTES-RELATIVE 0 % 0-1 PERCENT (BEAKER) (test code = 2801) URINALYSIS W/ [id number] 06:47:00 Test Item Value Reference Range Interpretation Comments COLOR (BEAKER) (test code = Yellow 470) CLARITY (BEAKER) (test code = Clear 469) SPECIFIC GRAVITY UA (BEAKER) 1.015 1.001-1.035 (test code = 468) PH UA (BEAKER) (test code = 6.5 5.0-8.0 467) PROTEIN UA (BEAKER) (test code >600 mg/dL Negative A = 464) GLUCOSE UA (BEAKER) (test code 200 mg/dL Negative A = 365) KETONES UA (BEAKER) (test code Negative Negative = 371) BILIRUBIN UA (BEAKER) (test Negative Negative code = 462) BLOOD UA (BEAKER) (test code = Small Negative A 461) NITRITE UA (BEAKER) (test code Negative Negative = 465) LEUKOCYTE ESTERASE UA (BEAKER) Negative Negative (test code = 466) UROBILINOGEN UA (BEAKER) (test 2.0 mg/dL 0.2-1.0 H code = 463) RBC UA (BEAKER) (test code = 2 /HPF 519) WBC UA (BEAKER) (test code = 1 /HPF 520) BACTERIA (BEAKER) (test code = Rare 517) MUCUS (BEAKER) (test code = Rare 1574) HYALINE CASTS (BEAKER) (test 6 /LPF code = 514) SOURCE(BEAKER) (test code = Urine, Voided 7270) CREATININE, RANDOM [id number] 06:33:00 Test Item Value Reference Range Interpretation Comments CREATININE URINE (BEAKER) (test 115.6 mg/dL code = 375) Reference Range: No NormalsPOCT-GLUCOSE [id number] 21:16:00 Test Item Value Reference Range Interpretation Comments POC-GLUCOSE METER 209 mg/dL 70-110 H TESTED AT [facility] 6720 (BEAKER) (test code = JANIS BEGUM 1534) [address] HEMOGLOBIN [id number] 18:59:00 Test Item Value Reference Range Interpretation Comments HEMOGLOBIN A1C (BEAKER) (test code = 4.6 % 4.3-6.1 368) POCT-GLUCOSE [id number] 17:04:00 Test Item Value Reference Range Interpretation Comments POC-GLUCOSE METER 214 mg/dL 70-110 H TESTED AT [facility] 6720 (BEAKER) (test code = JANIS Campos [facility] 1538) [address] POCT-GLUCOSE [id number] 12:38:00 Test Item Value Reference Range Interpretation Comments POC-GLUCOSE METER 205 mg/dL 70-110 H TESTED AT [facility] 6720 (BEAKER) (test code = CAITLINCO Andres [facility] 1538) [address] POCT-GLUCOSE [id number] 09:06:00 Test Item Value Reference Range Interpretation Comments POC-GLUCOSE METER 163 mg/dL 70-110 H TESTED AT [facility] 6720 (BEAKER) (test code = CAITLINCO Andres [facility] 1538) [address] [id number] 06:57:00 Test Item Value Reference Range Interpretation Comments MAGNESIUM (BEAKER) (test code = 1.6 mg/dL 1.6-2.6 627) BASIC METABOLIC [id number] 06:57:00 Test Item Value Reference Range Interpretation Comments SODIUM (BEAKER) 140 meq/L 136-145 (test code = 381) POTASSIUM (BEAKER) 3.6 meq/L 3.5-5.1 (test code = 379) CHLORIDE (BEAKER) 106 meq/L 98-107 (test code = 382) CO2 (BEAKER) (test 26 meq/L 22-29 code = 355) BLOOD UREA NITROGEN 31 mg/dL 7-21 H (BEAKER) (test code = 354) CREATININE (BEAKER) 2.28 mg/dL 0.57-1.25 H (test code = 358) GLUCOSE RANDOM 128 mg/dL 70-105 H (BEAKER) (test code = 652) CALCIUM (BEAKER) 8.0 mg/dL 8.4-10.2 L (test code = 697) EGFR (BEAKER) (test 35 mL/min/1.73 ESTIMA SIRENA GFR IS code = 1092) sq m NOT ACCURATE CREATININE CLEARANCE IN PREDICTING GLOMERULAR FILTRATION RATE . ESTIMATED GFR I S NOT APPLICABLE FOR DIALYSIS PATIEN TS. CBC W/PLT COUNT & AUTO [id number] 06:40:00 Test Item Value Reference Range Interpretation Comments WHITE BLOOD CELL COUNT (BEAKER) 7.6 K/ L 3.5-10.5 (test code = 775) RED BLOOD CELL COUNT (BEAKER) 4.26 M/ L 4.63-6.08 L (test code = 761) HEMOGLOBIN (BEAKER) (test code = 12.2 GM/DL 13.7-17.5 L 410) HEMATOCRIT (BEAKER) (test code = 40.2 % 40.1-51.0 411) MEAN CORPUSCULAR VOLUME (BEAKER) 94.4 fL 79.0-92.2 H (test code = 753) MEAN CORPUSCULAR HEMOGLOBIN 28.6 pg 25.7-32.2 (BEAKER) (test code = 751) MEAN CORPUSCULAR HEMOGLOBIN CONC 30.3 GM/DL 32.3-36.5 L (BEAKER) (test code = 752) RED CELL DISTRIBUTION WIDTH 12.8 % 11.6-14.4 (BEAKER) (test code = 412) PLATELET COUNT (BEAKER) (test 231 K/CU MM 150-450 code = 756) MEAN PLATELET VOLUME (BEAKER) 10.9 fL 9.4-12.4 (test code = 754) NUCLEATED RED BLOOD CELLS 0 /100 WBC 0-0 (BEAKER) (test code = 413) NEUTROPHILS RELATIVE PERCENT 66 % (BEAKER) (test code = 429) LYMPHOCYTES RELATIVE PERCENT 26 % (BEAKER) (test code = 430) MONOCYTES RELATIVE PERCENT 6 % (BEAKER) (test code = 431) EOSINOPHILS RELATIVE PERCENT 2 % (BEAKER) (test code = 432) BASOPHILS RELATIVE PERCENT 1 % (BEAKER) (test code = 437) NEUTROPHILS ABSOLUTE COUNT 4.99 K/ L 1.78-5.38 (BEAKER) (test code = 670) LYMPHOCYTES ABSOLUTE COUNT 1.95 K/ L 1.32-3.57 (BEAKER) (test code = 414) MONOCYTES ABSOLUTE COUNT (BEAKER) 0.44 K/ L 0.30-0.82 (test code = 415) EOSINOPHILS ABSOLUTE COUNT 0.12 K/ L 0.04-0.54 (BEAKER) (test code = 416) BASOPHILS ABSOLUTE COUNT (BEAKER) 0.07 K/ L 0.01-0.08 (test code = 417) IMMATURE GRANULOCYTES-RELATIVE 0 % 0-1 PERCENT (BEAKER) (test code = 2801) CREATINE KINASE (CK), TOTAL AND [id number] 02:58:00 Test Item Value Reference Range Interpretation Comments CREATINE KINASE TOTAL (BEAKER) 218 U/L 29-200 H (test code = 380) CREATINE KINASE-MB (BEAKER) (test 3.9 ng/mL 0.0-6.6 code = 750) CREATINE KINASE-MB INDEX (AKER) 1.8 % (test code = 395) CK-MB Reference Range:<6.7 Normal6.7-10.0 Borderline>10.0 AbnormalTROPONIN [id number] 02:58:00 Test Item Value Reference Range Interpretation Comments TROPONIN I (AKER) (test code = 0.08 ng/mL 0.00-0.03 H 397) Troponin I (TnI) levels must be interpreted [...] acidosis, acute neurological disease, and persistent tachyarrhythmia.POCT-GLUCOSE [id number] 23:19:00 Test Item Value Reference Range Interpretation Comments POC-GLUCOSE METER 137 mg/dL 70-110 H TESTED AT [facility] 6720 ([facility]) (test code = [facility] 1538) [address] POCT-GLUCOSE [id number] 17:31:00 Test Item Value Reference Range Interpretation Comments POC-GLUCOSE METER 126 mg/dL 70-110 H TESTED AT [facility] 6720 ([facility]) (test code = [facility] 1538) [address] CREATINE KINASE (CK), TOTAL AND [id number] 17:16:00 Test Item Value Reference Range Interpretation Comments CREATINE KINASE TOTAL (BEAKER) 322 U/L 29-200 H (test code = 380) CREATINE KINASE-MB (BEAKER) (test 5.8 ng/mL 0.0-6.6 code = 750) CREATINE KINASE-MB INDEX (BEAKER) 1.8 % (test code = 395) CK-MB Reference Range:<6.7 Normal6.7-10.0 Borderline>10.0 AbnormalTROPONIN [id number] 17:06:00 Test Item Value Reference Range Interpretation Comments TROPONIN I (BEAKER) (test code = 0.08 ng/mL 0.00-0.03 H 397) Troponin I (TnI) levels must be interpreted [...] acute neurological disease, and persistent tachyarrhythmia.URINALYSIS W/ [id number] 16:04:00 Test Item Value Reference Range Interpretation Comments COLOR (BEAKER) (test code = Light Yellow 470) CLARITY (BEAKER) (test code = Clear 469) SPECIFIC GRAVITY UA (BEAKER) 1.006 1.001-1.035 (test code = 468) PH UA (BEAKER) (test code = 6.0 5.0-8.0 467) PROTEIN UA (BEAKER) (test code 200 mg/dL Negative A = 464) GLUCOSE UA (BEAKER) (test code Negative Negative = 365) KETONES UA (BEAKER) (test code Negative Negative = 371) BILIRUBIN UA (BEAKER) (test Negative Negative code = 462) BLOOD UA (BEAKER) (test code = Trace Negative A 461) NITRITE UA (BEAKER) (test code Negative Negative = 465) LEUKOCYTE ESTERASE UA (BEAKER) Negative Negative (test code = 466) UROBILINOGEN UA (BEAKER) (test 0.2 mg/dL 0.2-1.0 code = 463) RBC UA (BEAKER) (test code = < /HPF 519) WBC UA (BEAKER) (test code = < /HPF 520) SOURCE(BEAKER) (test code = Urine, Voided 1449) CREATINE KINASE (CK), TOTAL AND [id number] 10:24:00 Test Item Value Reference Range Interpretation Comments CREATINE KINASE TOTAL (BEAKER) 377 U/L 29-200 H (test code = 380) CREATINE KINASE-MB (BEAKER) (test 6.3 ng/mL 0.0-6.6 code = 750) CREATINE KINASE-MB INDEX (BEAKER) 1.7 % (test code = 395) CK-MB Reference Range:<6.7 Normal6.7-10.0 Borderline>10.0 AbnormalTROPONIN [id number] 10:24:00 Test Item Value Reference Range Interpretation Comments TROPONIN I (BEAKER) (test code = 0.09 ng/mL 0.00-0.03 H 397) Troponin I (TnI) levels must be interpreted [...] and persistent tachyarrhythmia.RAD, CHEST, 1 VIEW, NON [id number] 10:20:00Reason for exam:->sobShould this be performed at the bedside?->No FINAL REPORT Chest one view. Clinical history: sob Comparison: No priors Discussion: A frontal chest is provided. Cardiomediastinal contours are unremarkable. There are enpms-aa-ywdlsuqj bilateral pleural effusions. Opacity along the left lateral chest wall probably reflectsa loculated effusion, although mass lesion cannot be excluded. There is bibasilar atelectasis or consolidation. No pneumothorax. Status post median sternotomy. No acute bony abnormality. Signed: Sugey Ojeda Verified Date/Time: 05/21/2017 10:20:07 Reading Location: [facility] Radiology Reading Room B-TYPE NATRIURETIC FACTOR (BNP)2017-05-21 10:16:00 Test Item Value Reference Range Interpretation Comments B-TYPE NATRIURETIC PEPTIDE 2852 pg/mL 0-100 H (BEAKER) (test code = 700) [id number] 10:15:00 Test Item Value Reference Range Interpretation Comments MAGNESIUM (BEAKER) 2.0 mg/dL 1.6-2.6 Specimen slightly (test code = 627) hemolyzed BASIC METABOLIC [id number] 10:15:00 Test Item Value Reference Range Interpretation Comments SODIUM (BEAKER) 140 meq/L 136-145 (test code = 381) POTASSIUM (BEAKER) 3.7 meq/L 3.5-5.1 Specimen slightly (test code = 379) hemolyzed CHLORIDE (BEAKER) 106 meq/L 98-107 (test code = 382) CO2 (BEAKER) (test 26 meq/L 22-29 code = 355) BLOOD UREA NITROGEN 30 mg/dL 7-21 H (BEAKER) (test code = 354) CREATININE (BEAKER) 2.13 mg/dL 0.57-1.25 H Specimen slightly (test code = 358) hemolyzed GLUCOSE RANDOM 93 mg/dL 70-105 (BEAKER) (test code = 652) CALCIUM (BEAKER) 8.3 mg/dL 8.4-10.2 L (test code = 697) EGFR (BEAKER) (test 38 mL/min/1.73 ESTIMA SIRENA GFR IS code = 1092) sq m NOT ACCURATE CREATININE CLEARANCE IN PREDICTING GLOMERULAR FILTRATION RATE . ESTIMATED GFR I S NOT APPLICABLE FOR DIALYSIS PATIEN TS. CBC W/PLT COUNT & AUTO [id number] 09:52:00 Test Item Value Reference Range Interpretation Comments WHITE BLOOD CELL COUNT (BEAKER) 9.5 K/ L 3.5-10.5 (test code = 775) RED BLOOD CELL COUNT (BEAKER) 4.83 M/ L 4.63-6.08 (test code = 761) HEMOGLOBIN (BEAKER) (test code = 13.9 GM/DL 13.7-17.5 410) HEMATOCRIT (BEAKER) (test code = 45.1 % 40.1-51.0 411) MEAN CORPUSCULAR VOLUME (BEAKER) 93.4 fL 79.0-92.2 H (test code = 753) MEAN CORPUSCULAR HEMOGLOBIN 28.8 pg 25.7-32.2 (BEAKER) (test code = 751) MEAN CORPUSCULAR HEMOGLOBIN CONC 30.8 GM/DL 32.3-36.5 L (BEAKER) (test code = 752) RED CELL DISTRIBUTION WIDTH 12.6 % 11.6-14.4 (BEAKER) (test code = 412) PLATELET COUNT (BEAKER) (test 262 K/CU MM 150-450 code = 756) MEAN PLATELET VOLUME (BEAKER) 11.2 fL 9.4-12.4 (test code = 754) NUCLEATED RED BLOOD CELLS 0 /100 WBC 0-0 (BEAKER) (test code = 413) NEUTROPHILS RELATIVE PERCENT 74 % (BEAKER) (test code = 429) LYMPHOCYTES RELATIVE PERCENT 19 % (BEAKER) (test code = 430) MONOCYTES RELATIVE PERCENT 5 % (BEAKER) (test code = 431) EOSINOPHILS RELATIVE PERCENT 1 % (BEAKER) (test code = 432) BASOPHILS RELATIVE PERCENT 1 % (BEAKER) (test code = 437) NEUTROPHILS ABSOLUTE COUNT 7.06 K/ L 1.78-5.38 H (BEAKER) (test code = 670) LYMPHOCYTES ABSOLUTE COUNT 1.82 K/ L 1.32-3.57 (BEAKER) (test code = 414) MONOCYTES ABSOLUTE COUNT (BEAKER) 0.45 K/ L 0.30-0.82 (test code = 415) EOSINOPHILS ABSOLUTE COUNT 0.07 K/ L 0.04-0.54 (BEAKER) (test code = 416) BASOPHILS ABSOLUTE COUNT (BEAKER) 0.11 K/ L 0.01-0.08 H (test code = 417) IMMATURE GRANULOCYTES-RELATIVE 0 % 0-1 PERCENT (BEAKER) (test code = 2801) Comprehensive Metabolic [id number] 07:55:00 Test Item Value Reference Range Interpretation Comments Sodium (test code 129 mmol/L 135-145 L = NA) Potassium (test See Comment 3.5-5.1 Grossly Hemo lyzed code = K) mmol/L Recollect for K called to Shala @0764Recollect called to Jannet in [facility] @4809 Chloride (test 99 mmol/L 98-105 N code = CL) Carbon Dioxide 24 mmol/L 22-29 N (test code = CO2) Glucose (test code 117 mg/dL 70-115 H = GLU) Blood Urea 21 mg/dL 8-23 N Nitrogen (test code = BUN) Creatinine (test 1.7 mg/dL 0.7-1.2 H code = CREAT) Calcium (test code 7.8 mg/dL 8.3-10.5 L = CA) Prot Total (test 8.0 g/dL 6.4-8.3 N code = TP) Albumin (test code 2.5 g/dL 3.5-5.2 L = ALB) A/G Ratio (test 0.5 Ratio code = AGRATIO) Globulin (test 5.5 2.9-3.1 H code = GLOB) Bili Total (test 0.4 mg/dL 0.1-0.9 N code = TBIL) Alk Phos (test 44 U/L 40-129 N code = APHOS) AST (test code = 213 U/L 1-40 H Hemolyzed AST) ALT (test code = 38 U/L 1-41 N ALT) BUN/Creatinine 12.4 Ratio (test code = BCRATIO) Anion Gap (test 6 mmol/L 7-16 L code = AGAP) Estimated GFR 53 eGFR (estimate d (test code = GFR) mL/min/1.73m2 Glomerula r Filtration Rate) is an est imated value,calculate d from the patient's s adriana creatinine usin g the MDRD equation.I t is NOT the patient 's actual GFR. The eGFR provides a more clinicallyusefu l measure of kidn ey disease than se rum creatinine alone.This calculation estefania es sex and race into account, if the informationis provided. If th e race is not provided , and the patient isAfrican-Ameri can, multiply by 1.2 12. If sex is not prov ided, and thepatient is female, multipl y by 0.742. Results for patients <18 ye ars ofage have not been validated by th e MDRD study and shoul d be interpretedwith caution.eGFR Re sult Interpretation: eGFR > or = 60 is in t he Normal RangeeGF R < 60 may mean kidney diseaseeGFR < 1 5 may mean kidney failureRange s recommended by the National Kidney Foundation,http ://nkd ep.nih.gov XR CHEST 1 [id number] 07:44:23Portable chest one view.HISTORY: Precardiac catheterizationLocation L1 1COMMENT: Comparison chest one view 09/06/2015. Sternal retention wires.Mild cardiomegaly. Small bilateral pleural effusions. Bibasilarinfiltrates. Mild pulmonary vascular congestion. Right upper ribdeformity, possibly secondary to prior thoracotomy.Impression: Prior thoracotomy. Mild cardiomegaly. Mild pulmonaryvascular congestionwith small pleural effusions. Bibasilar infiltratesmay represent atelectasis.Prothrombin [id number] 07:33:00 Test Item Value Reference Range Interpretation Comments PT (test code = PT) 10.50 seconds 9.78-13.35 N INR (test code = INR) 0.92 Ratio 0.6-1.2 N Partial Thromboplastin [id number] 07:33:00 Test Item Value Reference Range Interpretation Comments aPTT (test code = PTT) 35.20 seconds 24.39-37.25 N CBC with [id number] 07:22:00 Test Item Value Reference Range Interpretation Comments WBC (test code = WBC) 7.9 K/cumm 4.4-10.5 N RBC (test code = RBC) 4.75 M/cumm 4.10-5.70 N Hemoglobin (test code = HGB) 14.0 gm/dL 13.4-17.4 N Hematocrit (test code = HCT) 45.7 % 38.7-52.0 N MCV (test code = MCV) 96.2 fL 80-100 N MCH (test code = MCH) 29.5 pg 27.0-32.5 N MCHC (test code = MCHC) 30.7 g/dL 32.0-37.5 L RDW (test code = RDW) 12.7 % 11.5-14.5 N Platelet Count (test code = 290 K/cumm 140-440 N PLTCT) MPV (test code = MPV) 8.9 fL Diff Method (test code = DIFFM) Auto Neutrophil (test code = NEUT) 60.3 % 36-70 N Lymphocyte (test code = LYMPH) 32.6 % 12-44 N Monocyte (test code = MONO) 3.8 % 0-11 N Eosinophil (test code = EOS) 2.6 % 0-7 N Basophil (test code = BASO) 0.6 % 0-2 N Neutro Abs (test code = ANEUT) 4.8 K/cumm 1.6-7.4 N Lymph Abs (test code = ALYMPH) 2.6 K/cumm 0.5-4.6 N [place] Abs (test code = AMONO) 0.3 K/cumm 0.0-1.2 N Eos Abs (test code = AEOS) 0.21 K/cumm 0.00-0.74 N Baso Abs (test code = ABASO) 0.1 K/cumm 0.00-0.21 N POC Glucose, [id number] 07:01:00 Test Item Value Reference Range Interpretation Comments POC Glucose (test 103 mg/dL 70-115 N If you con shopping inspector your code = POCGLUC) patient crit ically ill, the Monique Accu- Chek InformII meters hould not be used for Glu cose determinations. Draw a venous Glucose and send to the Main Lab for Analysis. Special Procedure Send [id number] 13:32:00 Test Item Value Reference Range Interpretation Comments Performing Site (test see [facility] report code = SITE) Test Ordered (test B-Type Natriuretic code = TESTORD) Peptide US venous duplex UE RT [facility] [address] [place] [address] Patient Name: Dominic Hadley Medical Record#: [id number] Address: [address] [place] [address] City/State/Zip: [place] [address]: Katlyn Mann DO Insurance: [facility] /Age/Sex: 1955/65/M Self Pay Admit/Reg Date: 08/15/[address]: Aries Reagan MD Location: [id number] PCP: Susie Mcgovern MD Date of Service: 08/16/21 Order (s): US venous duplex UE RT CPT Code: 23314 Report Number: [id number] Reason for Exam: venous mapping, assess right forearm AVF EXAM: Right upper extremity duplex venous ultrasound Dictation location: H10 INDICATION: Venous mapping, assess right forearm AV fistula COMPARISON: None DISCUSSION: Galaviz scale, color Doppler, and spectral waveform analysis images of the right upper extremity venous system were performed. The internal jugular is patent and compressible. There is partially occlusive deep venous thrombus in the subclavian and axillary veins. The brachial, radial, and ulnar veins are patent. Occlusive thrombus is seen within the mid and distal basilic vein an d in the distal cephalic vein at the proximal forearm. The AV fistula is occluded. The cephalic vein measures 2.2 x 1.3 mm proximally and 1.7 x 1.5 mm at the midportion. The proximal basilic vein measures 1.5 x 1.4 mm. IMPRESSION: 1. Partially occlusive deep venous thrombosis in the subclavian and axillary veins. 2. Occlusive thrombus in the visualized portion of the AV fistula. 3. Occlusive superficial venous thrombosis in the mid to distal basilic vein and in the distal cephalic vein at the proximal forearm. Electronically signed by: Jesse Colin MD 08/16/2021 6:48 PM SALES INSPECTOR Dictated By: Jesse Colin MD 08/16/211815 Signed By: Jesse Colin MD 08/16/211815 TD/TT: 08/16/211815 Tech: SVCRPAzLense cc: [id number]; [id number]* E Jessica Reagan MD; SAGE Frank fluoro guide for CVC [address] [address] Patient Name: Dominic Hadley Medical Record#: [id number] Address: [address] [place] [address] City/State/Zip: [place] [address]: Katlyn Mann DO Insurance: [employer] [facility] /Age/Sex: 1955/65/M Self Pay Admit/Reg Date: 08/15/[address]: Katlyn Mann DO Location: [place] 480222-A PCP: Susie Mcgovern MD Date of Service: 08/16/21 Order (s): IR fluoro guide for CVC CPT Code: 15554 ReportNumber: [id number] Reason for Exam: HD PROCEDURE: ULTRASOUND AND FLUOROSCOPIC GUIDED TUNNELED HEMODIALYSIS CATHETER PLACEMENT INDICATION: End-stage renal disease OPERATORS: Reggie Villafuerte M.D. ACCESS SITE: Right internal jugular vein with ultrasound MEDICATIONS: Under my supervision, intravenous Versed and fentanyl were administered for moderate sedation. Pulse oximetry, heart rate, and blood pressure were continuously monitored by a dedicated IR trained nurse. The physician spent 30 minutes of continuous jxpr-we-ujld sedation time with the patient. CONTRAST: None FLUOROSCOPY TIME: 0.3 minutes; Air Kerma: 2.0 mGy COMPLICATIONS: None TECHNIQUE: The risks, benefits, and alternatives to the procedure and sedation were explained. Written informed consent was obtained. Maximum sterile barriers including cap, mask, hand hygiene, sterile gloves, sterile gown, large sterile drape, and cutaneous antisepsis were used. Sterile ultrasound techniques were followed including sterile gel and a sterile probe cover. The left neck and upper chest were prepped and draped insterile fashion. Using local anesthetic and ultrasound guidance, the left internal jugular veinwas punctured with a 21 gauge needle. An image was saved and stored to PACS. A 0.018-inch wire was passed centrally and the needle exchanged for a 4 [place] transitional dilator. A 0.035-inch wire was advanced through the dilator and negotiated into the IVC. The skin tract was dilated, and a 15 [place] peel-away sheath was placed over the wire. The soft tissues caudal and lateralto the sheath entry site were anesthetized with lidocaine. A small dermatotomy was made, and a tunneling tool brought the catheter from the dermatotomy to the venotomy. During suspended respiration, the catheter was advanced through the peel-away and positioned centrally using fluoroscopy. The catheter was aspirated, flushed, and heparinized per protocol. The venotomy was closed with 3-0 Vicryl, Dermabond and Steri-Strips. The catheter was secured with 2- 0 Prolene suture. A BioPatch antimicrobial dressing was applied. FINDINGS: 1. The left internal jugularvein is ultrasonographically patent. 2. The newly placed catheter has a smooth course with thetip terminating in the high right atrium. 3. There is excellent function with 20 ml syringes. IMPRESSION: Uneventful image guided placement of a tunneled hemodialysis catheter as described. Location: R16 Electronically signed by: Reggie Villafuerte MD 08/16/2021 1:14 PM [facility] Dictated By: Reggie Villafuerte MD 08/16/21 1041 Signed By: Reggie Villafuerte MD 08/16/21 1041 TD/TT: 08/16/21 1041 Tech: [id number] cc: LITO; [id number]* Katlyn Mann DO; Susie Mcgovern MDIR cvc ins belkys RT [facility] [address] [place] [address] Patient Name: Dominic Hadley Medical Record#: [id number] Address: [address] [place] [address] City/State/Zip: [place] [address]: Katlyn Mann DO Insurance: [employer] [facility] /Age/Sex: 1955/65/M Self Pay Admit/Reg Date: 08/15/[address]: Katlyn Mann DO Location: [address] PCP: Susie Mcgovern MD Date of Service: 08/16/21 Order (s): IR cvc ins belkys RT CPT Code: 57143 Report Number: [id number] Reason for Exam: HD PROCEDURE: ULTRASOUND AND FLUOROSCOPIC GUIDED TUNNELED HEMODIALYSIS CATHETER PLACEMENT INDICATION: End-stage renal disease OPERATORS: Reggie Villafuerte M.D. ACCESS SITE: Right internal jugular vein with ultrasound MEDICATIONS: Under my supervision, intravenous Versed and fentanyl were administered for moderate sedation. Pulse oximetry, heart rate, and blood pressure were continuously monitored by a dedicated IR trained nurse. The physician spent 30 minutes of continuous face- to-face sedation time with the patient. CONTRAST: None FLUOROSCOPY TIME: 0.3 minutes; Air Kerma: 2.0 mGy COMPLICATIONS: None TECHNIQUE: The risks, benefits, and alternatives to the procedure and sedation were explained. Written informed consent was obtained. Maximum sterile barriers including cap, mask, hand hygiene, sterile gloves, sterile gown, large sterile drape, and cutaneous antisepsis were used. Sterile ultrasound techniques were followed including sterile gel and a sterile probe cover. The left neck and upper chest were prepped and draped in sterile fashion. Using local anesthetic and ultrasound guidance, the left internal jugular vein was punctured with a 21 gauge needle. An image was saved and stored to PACS. A 0.018-inch wire was passed centrally and the needle exchanged for a 4 [place] transitional dilator. A 0.035-inch wire was advanced through the dilator and negotiated into the IVC. The skin tract was dilated, and a 15 [place] peel-away sheath was placed over the wire. The soft tissues caudal and lateral to the sheath entry site were anesthetized with lidocaine. A small dermatotomy was made, and a tunneling tool brought the catheter from the dermatotomy to the venotomy. During suspended respi ration, the catheter was advanced through the peel-away and positioned centrally using fluoroscopy. The catheter was aspirated, flushed, and heparinized per protocol. The venotomy was closed with 3-0 Vicryl, Dermabond and Steri-Strips. The catheter was secured with 2-0 Prolene suture. ABioPatch antimicrobial dressing was applied. FINDINGS: 1. The left internal jugular vein is ultrasonographically patent. 2. The newly placed catheter has a smooth course with the tip terminating in the high right atrium. 3. There is excellent function with 20 ml syringes. IMPRESSION: Uneventful image guided placement of a tunneled hemodialysis catheter as described. Location: R16 Electronically signed by: Reggie Villafuerte MD 08/16/2021 1:14 PM SALES INSPECTOR Dictated By: Reggie Villafuerte MD 08/16/211041 Signed By: Reggie Villafuerte MD 08/16/211041 TD/TT: 08/16/211041 Tech: [id number] cc: LITO; HANGE01* Katlyn Mann DO; [facility] [address] [address] Patient Name: Dominic Hadley Medical Record#: [id number] Address: [address] [place] [address] City/State/Zip: [place] [address]: Katlyn Mann DO Insurance: [facility] /Age/Sex: 1955/65/M Self Pay Admit/Reg Date: 08/15/[address]: Katlyn Mann DO [facility] PCP: Susie Mcgovern MD Date of Service: 08/16/21 Order (s): IR us guide venous access CPT Code: 42593 Report Number: [id number] Reason for Exam: HD PROCEDURE: ULTRASOUND AND FLUOROSCOPIC GUIDED TUNNELED HEMODIALYSIS CATHETER PLACEMENT INDICATION: End-stage renal disease OPERATORS: Reggie Villafuerte M.D. ACCESS SITE: Right internal jugular vein with ultrasound MEDICATIONS: Under my supervision, intravenous Versed and fentanylwere administered for moderate sedation. Pulse oximetry, heart rate, and blood pressure were continuously monitored by a dedicated IR trained nurse. The physician spent 30 minutes of continuous rbai-no-fjmy sedation time with the patient. CONTRAST: None FLUOROSCOPY TIME: 0.3 minutes; Air Kerma: 2.0 mGy COMPLICATIONS: None TECHNIQUE: The risks, benefits, and alternatives to the procedure and sedation were explained. Written informed consent was obtained. Maximum sterile barriers including cap, mask, hand hygiene, sterile gloves, sterile gown, large sterile drape, and cutaneous antisepsis were used. Sterile ultrasound techniques were followed including sterile gel and a sterile probe cover. The left neck and upper chest were prepped and draped in sterile fashion. Using local anesthetic and ultrasound guidance, the left internal jugular vein was punctured with a 21 gauge needle. An image was saved and stored to PACS. A 0.018-inch wire was passed centrally and the needle exchanged for a 4 [place] transitional dilator. A 0.035-inch wire was advanced through the dilator and negotiated into the IVC. The skin tract was dilated,and a 15 [place] peel-away sheath was placed over the wire. The soft tissues caudal and lateral to the sheath entry site were anesthetized with lidocaine. A small dermatotomy was made, and atunneling tool brought the catheter from the dermatotomy to the venotomy. During suspended respiration, the catheter was advanced through the peel- away and positioned centrally using fluoroscopy. The catheter was aspirated, flushed, and heparinized per protocol. The venotomy was closed with 3-0 Vicryl, Dermabond and Steri-Strips. The catheter was secured with 2-0 Prolene suture. A BioPatch antimicrobial dressing was applied. FINDINGS: 1. The left internal jugular vein is ultrasonographically patent. 2. The newly placed catheter has a smooth course with the tip terminating in the high right atrium. 3. There is excellent function with 20 ml syringes. IMPRESSION: Uneventful image guided placement of a tunneled hemodialysis catheter as described. Location: R16 Electronically signed by: Reggie Villafuerte MD 08/16/2021 1:14 PM SALES INSPECTOR Dictated By: Reggie Villafuerte MD 08/16/211039 Signed By: Reggie Villafuerte MD 08/16/211039 TD/TT: 08/16/211039 Tech: [id number] cc: LITO; HANGE01* Katlyn Mann DO; Susie Mcgovern MDIR fluoro guide for CVC [address] [address] Patient Name: Dominic Hadley Medical Record#: [id number] Address: [address] [place] [address] City/State/Zip: [place] [address]: Katlyn Mann DO Insurance: [employer] [facility] /Age/Sex: 1955/65/M Self Pay Admit/Reg Date: 08/15/[address]: Katlyn Mann DO [facility] P[facility]: Susie Mcgovern MD Date of Service: 08/16/21 Order (s): IR fluoro guide for CVC CPT Code: 19582 ReportNumber: [id number] Reason for Exam: HD ADDENDUM ADDENDUM #1 Addendum: ACCESS SITE: Left internal jugular vein with ultrasound Electronically signed by: Reggie Villafuerte MD 08/16/2021 4:28 PM SALES INSPECTOR Addendum Dictated By: Ana Villafuerte MD Addendum Signed By: Reggie Villafuerte MD 08/16/211040 DD/ /27/1041 TD/TT: 08/16/2102/27/1041 PROCEDURE: ULTRASOUND AND FLUOROSCOPIC GUIDED TUNNELED HEMODIALYSIS CATHETER PLACEMENT INDICATION: End-stage renal disease OPERATORS: Reggie Villafuerte M.D. ACCESS SITE: Right internal jugular vein with ultrasound MEDICATIONS: Under my supervision, intravenous Versed and fentanyl were administered for moderate sedation. Pulse oximetry, heart rate, and blood pressure were continuously monitored by a dedicated IR trained nurse. The physician spent 30 minutes of continuous tiut-wx-gssc sedation time with the patient. CONTRAST: None FLUOROSCOPY TIME: 0.3 minutes; Air Kerma: 2.0 mGy COMPLICATIONS: None TECHNIQUE: The risks, benefits, and alternatives to the procedure and sedation were explained. Written informed consent wasobtained. Maximum sterile barriers including cap, mask, hand hygiene, sterile gloves, sterile gown, large sterile drape, and cutaneous antisepsis were used. Sterile ultrasound techniques were followed including sterile gel and a sterile probe cover. The left neck and upper chest were prepped and draped in sterile fashion. Using local anesthetic and ultrasound guidance, the left internal jugular vein was punctured with a 21 gauge needle. An image was saved and stored to PACS. A 0.018-inch wire was passed centrally and the needle exchanged for a 4 [place] transitional dilator. A 0.035-inch wire was advanced through the dilator and negotiated into the IVC. The skin tract was dilated, and a 15 [place] peel-away sheath was placed over the wire. The soft tissues caudal and lateral to the sheath entry site were anesthetized with lidocaine. A small dermatotomy was made, and a tunneling tool brought the catheter from the dermatotomy to the venotomy. During suspended respiration, the catheter was advanced through the peel-away and positioned centrally using fluoroscopy. The catheter was aspirated, flushed, and heparinized per protocol. The venotomy was closed with 3-0 Vicryl, Dermabond and Steri-Strips. The catheter was secured with 2-0 Prolene suture. A BioPatch antimicrobial dressing was applied. FINDINGS: 1. The left internal jugular vein is ultrasonographically patent. 2. The newly placed catheter has a smooth course with the tip terminating in the high right atrium. 3. There is excellent function with20 ml syringes. IMPRESSION: Uneventful image guided placement of a tunneled hemodialysis catheter as described. Location: R16 Electronically signed by: Reggie Villafuerte MD 08/16/2021 1:14 PM SALES INSPECTOR Dictated By: Reggie Villafuerte MD 08/16/21 1047 Signed By: Reggie Villafuerte MD 08/16/211040 TD/TT: 08/16/211040 Tech: [id number] cc: LITO; HANGE01* Katlyn Mann DO; Susie Mcgovern MDIR cvc ins belkys RT [facility] [address] [place] [address] Patient Name: Dominic Hadley Medical Record#: [id number] Address: [address] [place] [address] City/State/Zip: [place] [address]: Katlyn Mann DO Insurance: [employer] [facility] /Age/Sex: 1955/65/M Self Pay Admit/Reg Date: 08/15/[address]: Katlyn Mann DO Location: [address] PCP: Susie Mcgovern MD Date of Service: 08/16/21 Order (s): IR cvc ins belkys RT CPT Code: 30759 Report Number: [id number] Reason for Exam: HD ADDENDUM ADDENDUM #1 Addendum: ACCESS SITE: Left internal jugular vein with ultrasound Electronically signed by: Reggie Villafuerte MD 08/16/2021 4:28 PM [facility] Addendum Dictated By: Reggie Villafuerte MD Addendum Signed By: Reggie Villafuerte MD 08/16/211041 DD/ /27/1042 TD/TT: 08/16/2102/27/1042 PROCEDURE: ULTRASOUND AND FLUOROSCOPIC GUIDED TUNNELED HEMODIALYSIS CATHETER PLACEMENT INDICATION: End-stage renal disease OPERATORS: Reggie Villafuerte M.D. ACCESS SITE: Right internal jugular vein with ultrasound MEDICATIONS: Under my supervision, intravenous Versedand fentanyl were administered for moderate sedation. Pulse oximetry, heart rate, and blood pressure were continuously monitored by a dedicated IR trained nurse. The physician spent 30 minutes of continuous bshx-ln-jozn sedation time with the patient. CONTRAST: None FLUOROSCOPY TIME: 0.3 minutes; Air Kerma: 2.0 mGy COMPLICATIONS: None TECHNIQUE: The risks, benefits, and alternatives to the procedure and sedation were explained. Written informed consent was obtained. Maximum sterile barriers including cap, mask, hand hygiene, sterile gloves, sterile gown, large sterile drape, and cutaneous antisepsis were used. Sterile ultrasound techniques were followed including sterile gel and a sterile probe cover. The left neck and upper chest were prepped and draped in sterile fashion. Using local anesthetic and ultrasound guidance, the left internal jugular vein was punctured with a 21 gauge needle. An image was saved and stored to PACS. A 0.018-inch wire was passed centrally and the needle exchanged for a 4 [place] transitional dilator. A 0.035-inch wire was advanced through the dilator and negotiated into the IVC. The skin tract was dilated, and a 15 [place] peel-away sheath was placed over the wire. The soft tissues ca udal and lateral to the sheath entry site were anesthetized with lidocaine. A small dermatotomy was made, and a tunneling tool brought the catheter from the dermatotomy to the venotomy. During suspended respiration, the catheter was advanced through the peel-away and positioned centrallyusing fluoroscopy. The catheter was aspirated, flushed, and heparinized per protocol. The venotomy was closed with 3-0 Vicryl, Dermabond and Steri-Strips. The catheter was secured with 2-0 Prolene suture. A BioPatch antimicrobial dressing was applied. FINDINGS: 1. The leftinternal jugular vein is ultrasonographically patent. 2. The newly placed catheter has a smooth course with the tip terminating in the high right atrium. 3. There is excellent function with 20 ml syringes. IMPRESSION: Uneventful image guided placement of a tunneled hemodialysis catheter as described. Location: R16 Electronically signed by: Reggie Villafuerte MD 08/16/2021 1:14 PM SALES INSPECTOR Dictated By: Reggie Villafuerte MD 08/16/211041 Signed By: Reggie Villafuerte MD 08/16/211041 TD/TT: 08/16/211041 Tech: [id number] cc: LITO; HANGE01* Katlyn Mann DO; SAGE Frank guide venous access [address] [address] Patient Name: Dominic Hadley Medical Record#: [id number] Address: [address] [place] [address] City/State/Zip: [place] [address]: Katlyn Mann DO Insurance: [employer] [facility] /Age/Sex: 1955/65/M Self Pay Admit/Reg Date: 08/15/[address]: Katlyn Mann [id number] PCP: Susie Mcgovern MD Date of Service: 08/16/21 Order (s): IR us guide venous access CPT Code: 40263 Report Number: [id number] Reason for Exam: HD ADDENDUM ADDENDUM #1 Addendum: ACCESS SITE: Left internal jugular vein with ultrasound Electronically signedby: Reggie Villafuerte MD 08/16/2021 4:28 PM [facility] Addendum Dictated By: Reggie Villafuerte MD Addendum Signed By: Reggie Villafuerte MD 08/16/211039 DD/ /28/1040 TD/TT: 08/16/2102/28/1040 PROCEDURE: ULTRASOUND AND FLUOROSCOPIC GUIDED TUNNELED HEMODIALYSIS CATHETER PLACEMENT INDICATION: End-stage renal disease OPERATORS: Reggie Villafuerte M.D. ACCESS SITE:Right internal jugular vein with ultrasound MEDICATIONS: Under my supervision, intravenous Versed and fentanyl were administered for moderate sedation. Pulse oximetry, heart rate, and blood pressure were continuously monitored by a dedicated IR trained nurse. The physician spent 30 minutesof continuous egfn-vg-hwrq sedation time with the patient. CONTRAST: None FLUOROSCOPY TIME: 0.3 minutes; Air Kerma: 2.0 mGy COMPLICATIONS: None TECHNIQUE: The risks, benefits, and alternatives to the procedure and sedation were explained. Written informed consent was obtained. Maximum sterile barriers including cap, mask, hand hygiene, sterile gloves, sterile g own, large sterile drape, and cutaneous antisepsis were used. Sterile ultrasound techniques were followed including sterile gel and a sterile probe cover. The left neck and upper chest were prepped and draped in sterile fashion. Using local anesthetic and ultrasound guidance, the left internal jugular vein was punctured with a 21 gauge needle. An image was saved and stored to PACS. A 0.018-inch wire was passed centrally and the needle exchanged for a 4 [place] transitional dilator. A 0.035-inch wire was advanced through the dilator and negotiated into the IVC. The skin tract was dilated, and a 15 [place] peel-away sheath was placed over the wire. The soft tissues caudal and lateral to the sheath entry site were anesthetized with lidocaine. A small dermatotomywas made, and a tunneling tool brought the catheter from the dermatotomy to the venotomy. During suspended respiration, the catheter was advanced through the peel-away and positioned centrally using fluoroscopy. The catheter was aspirated, flushed, and heparinized per protocol. Thevenotomy was closed with 3-0 Vicryl, Dermabond and Steri-Strips. The catheter was secured with 2-0 Prolene suture. A BioPatch antimicrobial dressing was applied. FINDINGS: 1. The left internal jugular vein is ultrasonographically patent. 2. The newly placed catheter has a smooth course with the tip terminating in the high right atrium. 3. There is excellent function with 20 ml syringes. IMPRESSION: Uneventful image guided placement of a tunneled hemodialysis catheter as described. Location: R16 Electronically signed by: Reggie Villafuerte MD 08/16/2021 1:14 PM SALES INSPECTOR Dictated By: Reggie Villafuerte MD 08/16/21 1040 Signed By: Reggie Villafuerte MD 08/16/21 1040 TD/TT: 08/16/21 1040 Tech: [id number] cc: LITO; HANGE01* Katlyn Mann DO; Susie Mcgovern MDEKG ED Electrocardiogram [facility] [address] [place] [address] Patient Name: Dominic Hadley Medical Record#: [id number] Address: [address] [place] [address] City/State/Zip: [place] [address]: Katlyn Mann DO Insurance: [facility] /Age/Sex: 1955/65/M Self Pay Admit/Reg Date: 08/15/[address]: ANAIS Ng Location: [place] [address]222-A PCP: Susie Mcgovern PMAbelardo Date of Service: 08/15/21 Order (s): EKG ED Electrocardiogram CPT Code: 01277 Report Number: [id number] Reason for Exam: missed HD Sinus rhythm Sinus pause LVH with secondary repolarization abnormality Anterolateral infarct, age indeterminate Summary: Abnormal ECG Dictated By: Jhonny Clark MD 08/15/21 1434 Signed By: Jhonny Clark MD 08/16/21 0953 TD/TT: 08/15/21 1434 Tech: [id number] cc: [id number]; HANGE01* Susie Mcgovern MD; ANAIS Dillard
[2021-12-31 00:31] LABS: Urine Blood 3+ (Negative); Urine Glucose Negative (Negative); Urine Protein 2+ (Negative); Urine pH 5.5 (5.0-7.0)
[2021-12-31 00:46] LABS: Urine Amorphous Sediment 2+ /HPF (NONE SEEN); Urine Bacteria >50 /HPF (NONE SEEN); Urine Mucus 1+ /HPF (NONE SEEN); Urine RBC >50 /HPF (NONE SEEN)
--- NOTE | 2021-12-31 00:56 | ER ---
Nurse's Notes [facility] Name: Dominic Hadley Age: 66 yrs Sex: Male : 1955 Arrival Date: 12/30/2021 Time: 21:13 Bed 2 Private MD: Diagnosis: UTI/ Urinary tract infection, site not specified Presentation: 12/30 21:44 Chief complaint: Patient states: Was discharged from the hospital on Sunday after a ll3 procedure on left foot, family member states pt has had blood in urine for 2 days, pt c/o pain to left foot 04/17, c/o constipation. Coronavirus screen: Vaccine status: Patient reports receiving the 2nd dose of the covid vaccine. At this time, the client does not indicate any symptoms associated with coronavirus-19. Ebola Screen: No symptoms or risks identified at this time. Initial Sepsis Screen: Does the patient meet any 2 criteria? No. Patient's initial sepsis screen is negative. Does the patient have a suspected source of infection? No. Patient's initial sepsis screen is negative. Risk Assessment: Do you want to hurt yourself or someone else? Patient reports no desire to harm self or others. Onset of symptoms was December 28, 2021. 21:44 Method Of Arrival: Wheelchair ll3 21:44 Acuity: GAIL 3 ll3 Triage Assessment: 21:52 General: Appears uncomfortable, Behavior is cooperative, agitated. Pain: Complains of ll3 pain in left foot. Neuro: Level of Consciousness is awake, alert, obeys commands, Oriented to person, place, time. Respiratory: Respiratory effort is even, unlabored, Respiratory pattern is regular, symmetrical. : Denies burning with urination, pain urgency, Parent/caregiver report the patient having Blood in urine. Derm: Skin is pink, warm \T\ dry. Historical: - Allergies: 21:52 Hydrocodone-Acetaminophen; ll3 21:52 Morphine; ll3 - PMHx: 21:52 CAD; CHF; Diabetes - NIDDM; heart dx; Hypertension; prostate problems; Renal Disease; ll3 - Immunization history:: Client reports receiving the 2nd dose of the Covid vaccine. - Social history:: Smoking status: Patient denies any tobacco usage or history of. Screenin/25 00:38 Abuse screen: Denies threats or abuse. Nutritional screening: No deficits noted. ll3 Tuberculosis screening: No symptoms or risk factors identified. Fall Risk No fall in past 12 months (0 pts). Secondary diagnosis (15 points) impaired mobility, No IV (0 pts). Ambulatory Aid- None/Bed Rest/Nurse Assist (0 pts). Gait- Impaired (20 pts.). Mental Status- Oriented to own ability (0 pts). Total Estevez Fall Scale indicates Low Risk Score (25-44 pts). Fall prevention measures have been instituted. Side Rails Up X 2 Placed close to Nursing Station Family Present and informed to notify staff if they need to leave bedside As available Patient and Family Educated on Fall Prevention Program and strategies. Assessment: 12/30 21:57 General: See triage assessment. ll3 23:00 Reassessment: No changes from previously documented assessment. Patient and/or family ll3 updated on plan of care and expected duration. Pain level reassessed. Patient is alert, oriented x 3, equal unlabored respirations, skin warm/dry/pink. 12/31 00:38 Reassessment: No changes from previously documented assessment. Patient and/or family ll3 updated on plan of care and expected duration. Pain level reassessed. Patient is alert, oriented x 3, equal unlabored respirations, skin warm/dry/pink. Vital Signs: 12/30 21:44 BP 142 / 56; Pulse 65; Resp 18; Temp 99.3(TE); Pulse Ox 100% on R/A; Weight 54.43 kg ll3 (R); Height 5 ft. 9 in. (175.26 cm); Pain 10/10; 12/31 00:38 BP 136 / 83; Pulse 63; Resp 18; Pulse Ox 98% on R/A; ll3 12/30 21:44 Body Mass Index 17.72 (54.43 kg, 175.26 cm) ll3 ED Course: 12/30 21:13 Patient arrived in ED. bp1 21:20 Angelica Collins FNP-C is [facility]. kb 21:20 Aris Scherer MD is Attending Physician. kb 21:44 Bennie Kilgore, FRANCISCO is Primary Nurse. ll3 21:52 Triage completed. ll3 21:52 Arm band placed on Patient placed in an exam room, on a stretcher, on pulse oximetry. ll3 22:09 CT Stone Protocol In Process Unspecified. EDAR 12/31 00:38 Patient has correct armband on for positive identification. Bed in low position. Call ll3 light in reach. Side rails up X 1. 00:38 No provider procedures requiring assistance completed. ll3 01:22 Patient admitted, IV remains in place. ll3 Administered Medications: No medications were administered Medication: 00:38 VIS not applicable for this client. ll3 Outcome: 00:56 Discharge ordered by . cali 01:22 Discharged to home via wheelchair, with family. ll3 01:22 Condition: stable 01:22 Discharge instructions given to patient, family, Instructed on discharge instructions, follow up and referral plans. medication usage, Demonstrated understanding of instructions, follow-up care, medications, Prescriptions given X 1. 01:23 Patient left the ED. ll3 Signatures: Dispatcher [employer] EDAR Angelica Collins, JOSEPH-C AGRIBUSINESS PROFESSOR-Adele Hayward [place], RN RN ll3
--- NOTE | 2021-12-31 00:56 | EDPHYS ---
Physician Documentation [facility] Name: Dominic Hadley Age: 66 yrs Sex: Male : 1955 Arrival Date: 12/30/2021 Time: 21:13 Bed 2 Private MD: ED Physician Aris Scherer HPI: 12/30 22:31 This 66 yrs old Black Male presents to ER via Wheelchair with complaints of Blood in kb Urine. 22:31 The patient presents with urinary symptoms, hematuria. Onset: The symptoms/episode kb began/occurred today. Modifying factors: The symptoms are alleviated by nothing, the symptoms are aggravated by urinating. Associated signs and symptoms: Pertinent positives: hematuria, Pertinent negatives: abdominal pain, constipation, diarrhea, dysuria, fever, nausea, vomiting. Severity of symptoms: At their worst the symptoms were mild, in the emergency department the symptoms are unchanged. The patient has not experienced similar symptoms in the past. The patient has not recently seen a physician. Family member states she saw blood in pt's urine today so they brought him in to get it checked out. Pt denies any pain . Historical: - Allergies: 21:52 Hydrocodone-Acetaminophen; ll3 21:52 Morphine; ll3 - PMHx: 21:52 CAD; CHF; Diabetes - NIDDM; heart dx; Hypertension; prostate problems; Renal Disease; ll3 - Immunization history:: Client reports receiving the 2nd dose of the Covid vaccine. - Social history:: Smoking status: Patient denies any tobacco usage or history of. ROS: 22:29 Constitutional: Negative for fever, chills, and weight loss. kb 22:29 : Positive for hematuria. 22:29 All other systems are negative. Exam: 22:29 Constitutional: This is a well developed, well nourished patient who is awake, alert, kb and in no acute distress. Head/Face: Normocephalic, atraumatic. ENT: Moist Mucous membranes Cardiovascular: Regular rate and rhythm with a normal S1 and S2. No gallops, murmurs, or rubs. No pulse deficits. Respiratory: Respirations even and unlabored. No increased work of breathing. Talking in full sentences Abdomen/GI: Soft, non-tender. No distention 22:29 Neuro: Exam negative for acute changes. Vital Signs: 21:44 BP 142 / 56; Pulse 65; Resp 18; Temp 99.3(TE); Pulse Ox 100% on R/A; Weight 54.43 kg ll3 (R); Height 5 ft. 9 in. (175.26 cm); Pain 10/10; 12/31 00:38 BP 136 / 83; Pulse 63; Resp 18; Pulse Ox 98% on R/A; ll3 12/30 21:44 Body Mass Index 17.72 (54.43 kg, 175.26 cm) ll3 MDM: 12/30 21:20 Patient medically screened. kb 22:29 Data reviewed: vital signs, nurses notes. Data interpreted: Pulse oximetry: on room air kb is 100 %. Interpretation: normal. 12/31 00:55 Counseling: I had a detailed discussion with the patient and/or guardian regarding: the kb historical points, exam findings, and any diagnostic results supporting the discharge/admit diagnosis, lab results, radiology results, the need for outpatient follow up, a family practitioner, to return to the emergency department if symptoms worsen or persist or if there are any questions or concerns that arise at home. 12/30 21:34 Order name: Urine Microscopic Only; Complete Time: 00:55 kb 12/31 00:32 Order name: Urine Dipstick-Ancillary; Complete Time: 00:38 EDMS 12/30 21:34 Order name: Urine Dipstick-Ancillary (obtain specimen); Complete Time: 00:34 kb 12/30 21:49 Order name: CT Stone Protocol 12/31 00:49 Order name: Urine Culture EDMS Administered Medications: No medications were administered Disposition: 07:52 Co-signature as Attending Physician, Aris Scherer MD. [email or web address] Disposition Summary: 12/31/21 00:56 Discharge Ordered Location: Home kb Condition: Stable kb Diagnosis - UTI/ Urinary tract infection, site not specified kb Followup: kb - With: Emergency Department - When: As needed - Reason: Worsening of condition Followup: kb - With: Private Physician - When: 2 - 3 days - Reason: Recheck today's complaints, Continuance of care, Re-evaluation by your physician Discharge Instructions: - Discharge Summary Sheet kb - Urinary Tract Infection, Adult, [id number] kb Forms: - Medication Reconciliation Form kb - Thank You Letter kb - Antibiotic Education kb - Prescription Opioid Use kb Prescriptions: - Augmentin 875-125 mg Oral Tablet - take 1 tablet by ORAL route every 12 hours for 10 days; 20 tablet; Refills: 0, kb Product Selection Permitted Signatures: Dispatcher [employer] Angelica Corey FNP-C FNP-Ckb Holmes, Maurice, MD MD [email or web address] Bennie Kilgore RN RN ll3
[2021-12-31 01:27] VITALS: TEMP 99.3
[2021-12-31 01:28] VITALS: BP 136/83; O2SAT 98
--- NOTE | 2021-12-31 15:37 | RAD REPORT ---
EXAM DESCRIPTION: CT - Stone Protocol - 12/31/2021 6:45 am CLINICAL HISTORY: 66 years Male, hematuria TECHNIQUE: Helical CT axial images are obtained from the lung bases to the pubic symphysis without I V contrast. No oral contrast was administered. Multiplanar reconstruction. This exam was performed ac cording to our departmental dose-optimization program, which includes automated exposure control, adj ustment of the mA and/or kV according to patient size and/or use of iterative reconstruction techniqu e. COMPARISON: None. FINDINGS: LUNG BASES: Large size right and small left pleural effusion. Right lower lobe atelectasis . LIVER: Normal in size. Normal attenuation. No focal masses. HEPATOBILIARY: Cholelithiasis. No intra- or extrahepatic ductal dilatation. SPLEEN: Normal size. PANCREAS: Unremarkable on this nonenhanced exam. ADRENAL GLANDS: Normal size. No adrenal masses. KIDNEYS: No obstructing calculi or hydronephrosis bilaterally. No nephrolithiasis. Extensive bilate ral renal vascular calcifications. No significant cysts are present. BOWEL AND MESENTERY: Small volume ascites. No small or large bowel dilatation. No colonic diverticulo sis. Normal appendix. No abnormal mesenteric lymphadenopathy. No pneumoperitoneum. RETROPERITONEUM: Normal caliber abdominal aorta without aneurysm. Severely advanced ASVD (atheroscl erotic vascular disease) including severe arteriosclerosis. No abnormal retroperitoneal lymphadenop athy. PELVIS: Moderate prostatomegaly impressing upon the base of the urinary bladder. Otherwise unremark able urinary bladder. ABDOMINAL WALL: Severe subcutaneous edema. BONES: No suspicious osseous lytic or blastic lesions seen. IMPRESSION: 1. No nephroureterolithiasis or obstructive uropathy. 2. Severe anasarca. Large right and small left pleural effusion. Small volume ascites. 3. Cholelithiasis. 4. Moderate prostatomegaly impressing upon the base of the urinary bladder. Correlate with PSA leve ls. 5. Severely advanced ASVD.. Electronically signed by: Jason Denton MD 12/30/2021 10:54 PM CDT Due to temporary technical issues with the PACS/Fluency reporting system, reports are being signed by the in house radiologists without. review as a courtesy to insure prompt reporting. The interpreting radiologist is fully responsible for the content of the report
== END 2021-12-31 01:23 | disposition home or self-care (01) ==
LOC: ER 21:10
DX: N39.0 Urinary tract infection, site not specified (principal); E11.9 Type 2 diabetes mellitus without complications; I10 Essential (primary) hypertension; Z88.5 Allergy status to narcotic agent
CPT/HCPCS: 74176; 76377; 81003; 81015; 87086; 87088; 99283